=== PATIENT | female | born 1990 | race Caucasian/White ===

== ENCOUNTER 2020-06-20 16:58 | Outpatient (REF) | payer OTHER, SELFPAY ==
--- NOTE | 2020-06-20 15:00 | PAPFT_PTH ---
PATIENT: Renetta Fermin LOC: [facility] U#:[id number] AGE/SX: 29/F ROOM: RE06/20/[address]: LUCILLE Cabrales : 1990 BED: DIS: 06/20/2020 SPEC #: [id number] RECD: 06/20/20 17:54 STATUS: ISSAC REQ #: [id number] ELISABET: 06/20/20 15:[address]: Karyna Hickman DEPT: REPLACED BY [facility] Cytology RECD BY: María Plummer ENTERED: 06/20/20 17:54 SP TYPE: PAPFT OTHR DR: Fran Loya, Tissues: 1 - CX/ENDOCX FOR PAP SMEARS Procedures: PAP THIN PREP/UVM Screening Comments: [id number] ([facility])
== END 2020-06-20 17:18 ==
LOC: LBN 16:58
PROVIDERS: PCP Emergency Medicine; Visit Provider Nurse Practitioner Family
DX: Z87.42 Personal history of other diseases of the female genital tract (principal); Z12.4 Encounter for screening for malignant neoplasm of cervix
CPT/HCPCS: 88142

== ENCOUNTER 2021-02-03 02:36 | Outpatient (CLI) | payer OTHER, SELFPAY ==
[2021-02-03 10:02] LABS: Kit/Specimen SENT
[2021-02-03 10:09] LABS: Abs Immature Grans 0.04 10^3/uL (0.0-0.06); Absolute Basophil Count 0.05 10^3/uL (0.0-0.2); Absolute Lymphocyte Count 1.64 10^3/uL (1.2-3.4); Absolute Monocyte Count 0.37 10^3/uL (0.1-0.8); Absolute Neutrophil Count 5.67 10^3/uL (1.2-6.7); Basophils % 0.6; Eosinophils % 3.7; HCT 35.4 % (36.0-46.0); Immature Grans % 0.5; Lymphocytes % 20.3; MCH 32.9 pg (27.0-33.0); MCHC 33.9 % (32.0-36.0); Monocytes % 4.6; Neutrophils % 70.3; Nucleated RBC 0 %; Platelet Count 216 10^3/uL (130-400); RBC 3.65 10^6/uL (3.93-5.22); RDW 11.8 % (11.7-14.6); RDW-SD 42.5 fL; WBC 8.07 10^3/uL (4.4-10.8)
[2021-02-03 11:10] LABS: FREE T4 0.91 ng/dL (0.76-1.46); TSH 0.39 uIU/mL (0.36-3.74)
[2021-02-04 09:26] LABS: Hepatitis B Surface Ag Negative (Negative)
[2021-02-04 10:03] LABS: HIV-1/2 Ag & Ab Screen Negative (Negative)
[2021-02-04 10:14] LABS: Hepatitis C Ab w Rflx HCV PCR Negative (Negative)
[2021-02-04 13:11] LABS: Varicella IgG Antibody Positive (See Note)
[2021-02-04 13:20] LABS: Rubella IgG Ab (UVM) Positive (See Note)
[2021-02-05 13:38] LABS: Syphilis Total Ab w/Reflex Nonreactive (Nonreactive)
[2021-02-05 18:41] LABS: Specimen WB Whole Blood
[2021-02-07 11:38] LABS: Result Summary NEGATIVE; Specimen WB Whole Blood
== END 2021-02-03 02:37 | disposition home or self-care (01) ==
LOC: LBO 02:36
PROVIDERS: PCP Emergency Medicine; Visit Provider Advanced Practice Midwife
DX: Z34.91 Encounter for supervision of normal pregnancy, unspecified, first trimester (principal); Z11.59 Encounter for screening for other viral diseases; Z11.4 Encounter for screening for human immunodeficiency virus [HIV]; Z01.84 Encounter for antibody response examination; Z36.89 Encounter for other specified antenatal screening
CPT/HCPCS: 36415; 81329; 86787; 86803; 86850; 86900; 86901; 87340; 87389; 81220; 84439; 84443; 85025; 86762; 86780

== ENCOUNTER 2021-02-03 12:02 | Outpatient (REF) | payer OTHER, SELFPAY ==
[2021-02-03 12:10] LABS: *AMPHETAMINES SCREEN URINE Negative (Negative); *BARBITURATES SCREEN URINE Negative (Negative); *BENZODIAZEPINES SCREEN URINE Negative (Negative); Cannabinoids THC Negative (Negative); Cocaine Screen,Urine Negative (Negative); METHADONE URINE SCREEN Negative (Negative); OPIATES URINE SCREEN Negative (Negative)
[2021-02-03 12:11] LABS: Tricyclic Antidepressants Negative (Negative)
[2021-02-04 13:07] LABS: Chlamydia Result Negative (Negative); GC Result Negative (Negative)
[2021-02-07 13:13] LABS: Buprenorphine Negative ng/mL (Cutoff: 5.0); Norbuprenorphine Negative ng/mL (Cutoff: 2.5)
== END 2021-02-03 12:03 | disposition home or self-care (01) ==
LOC: LBN 12:02
PROVIDERS: PCP Emergency Medicine; Visit Provider Advanced Practice Midwife
DX: Z34.91 Encounter for supervision of normal pregnancy, unspecified, first trimester (principal); Z11.3 Encounter for screening for infections with a predominantly sexual mode of transmission
CPT/HCPCS: 80307; 87491; 87591; 87086

== ENCOUNTER 2021-06-05 02:35 | Outpatient (CLI) | payer OTHER, SELFPAY ==
[2021-06-05 16:12] LABS: HCT 33.3 % (36.0-46.0); HGB 11.1 g/dL (11.2-15.7); MCH 32.2 pg (27.0-33.0); MCHC 33.3 % (32.0-36.0); MCV 96.5 fL (80-95); MPV 9.8 fL (8.0-11.0); Platelet Count 218 10^3/uL (130-400); RBC 3.45 10^6/uL (3.93-5.22); RDW 11.6 % (11.7-14.6); RDW-SD 40.8 fL; WBC 11.99 10^3/uL (4.4-10.8)
[2021-06-05 16:34] LABS: Glucose,1 Hr (Glucola) 117 mg/dL (80-140)
== END 2021-06-05 02:36 | disposition home or self-care (01) ==
LOC: LBO 02:35
PROVIDERS: PCP Emergency Medicine; Visit Provider Advanced Practice Midwife
DX: Z34.93 Encounter for supervision of normal pregnancy, unspecified, third trimester (principal)
CPT/HCPCS: 36415; 82950; 85027

== ENCOUNTER 2021-07-14 08:49 | Outpatient (CLI) | payer OTHER, SELFPAY ==
[2021-07-14 10:41] VITALS: BP 122/71; PULSE 71; TEMP 37.1
[2021-07-14 11:03] VITALS: BP 122/71; PULSE 71
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
[2021-07-14 11:59] VITALS: BP 122/71; PULSE 71; TEMP 37.1
== END 2021-07-14 11:26 | disposition home or self-care (01) ==
LOC: BCD 08:51 → OBS 10:39
PROVIDERS: PCP Emergency Medicine; Visit Provider Advanced Practice Midwife
DX: Z03.79 Encounter for other suspected maternal and fetal conditions ruled out (principal); Z04.1 Encounter for examination and observation following transport accident; V40.5XXA Car driver injured in collision with pedestrian or animal in traffic accident, initial encounter; Z3A.34 34 weeks gestation of pregnancy
CPT/HCPCS: 59025

== ENCOUNTER 2021-07-21 13:53 | Outpatient (REF) | payer OTHER, SELFPAY | END 2021-07-21 13:54 | disposition home or self-care (01) | LOC: LBN 13:53 | PROVIDERS: PCP Emergency Medicine; Visit Provider Advanced Practice Midwife | DX: Z34.93 Encounter for supervision of normal pregnancy, unspecified, third trimester (principal) | CPT/HCPCS: 87081 ==

== ENCOUNTER 2021-07-31 17:41 | Outpatient (REF) | payer OTHER, SELFPAY ==
[2021-07-31 17:13] LABS: *AMPHETAMINES SCREEN URINE Negative (Negative); *BARBITURATES SCREEN URINE Negative (Negative); *BENZODIAZEPINES SCREEN URINE Negative (Negative); Cannabinoids THC Negative (Negative); Cocaine Screen,Urine Negative (Negative); METHADONE URINE SCREEN Negative (Negative); OPIATES URINE SCREEN Negative (Negative)
[2021-07-31 17:39] LABS: Tricyclic Antidepressants Negative (Negative)
[2021-08-06 09:58] LABS: Buprenorphine Negative ng/mL (Cutoff: 5.0)
== END 2021-07-31 17:42 | disposition home or self-care (01) ==
LOC: LBN 17:41
PROVIDERS: PCP Emergency Medicine; Visit Provider Advanced Practice Midwife
DX: Z34.93 Encounter for supervision of normal pregnancy, unspecified, third trimester (principal)
CPT/HCPCS: 80307

== ENCOUNTER 2021-08-11 03:18 | Outpatient (CLI) | payer OTHER, SELFPAY | END 2021-08-11 03:19 | disposition home or self-care (01) | LOC: LBO 03:18 | PROVIDERS: PCP Emergency Medicine; Visit Provider Advanced Practice Midwife | DX: Z34.93 Encounter for supervision of normal pregnancy, unspecified, third trimester (principal); Z77.011 Contact with and (suspected) exposure to lead | CPT/HCPCS: 36415; 83655 ==

== ENCOUNTER 2021-08-11 16:05 | Outpatient (CLI) | payer OTHER, SELFPAY ==
[2021-08-11] VITALS (7 sets, daily range): BP systolic 160–168; BP diastolic 95–98; PULSE 58–60; RESP 16; TEMP 36.7
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
[2021-08-11 17:11] LABS: HCT 35.5 % (36.0-46.0); HGB 11.7 g/dL (11.2-15.7); MCH 31.8 pg (27.0-33.0); MCV 96.5 fL (80-95); MPV 11.3 fL (8.0-11.0); Platelet Count 171 10^3/uL (130-400); RBC 3.68 10^6/uL (3.93-5.22); RDW 11.8 % (11.7-14.6); RDW-SD 41.3 fL; WBC 8.42 10^3/uL (4.4-10.8)
--- NOTE | 2021-08-11 17:17 | PDOC.NST_ITS ---
Date of service: 08/11/21 Time of Service: 17:18 NST Evaluation Reason for NST Reasons for Nonstress Test: OTHER, SEE COMMENT Reason for NST Other: fell on butt Gestational Age Gestational Age in Weeks and Days: 38 Weeks and 3Days Test and Monitor Explained Test/Monitor Explained: Test Explained, Monitor Explained and Patient Verbalized Understanding Vital Signs Blood Pressure: 165/98 Pulse: 59 Temperature: 98.0 F Urine Results Urine Protein: Positive Urine Ketones: Negative Urine Glucose: Negative Urine Blood: Positive NST Information Date on Monitor: 08/11/21 Time on Monitor: 16:26 Date off Monitor: 08/11/21 Time off Monitor: 16:57 Total Time on Monitor: 31 NST Interventions: PO Hydration Contraction Frequency: x1 NST Evaluation Patient States Movement: Present FHR Baseline: 120 Variability: Moderate 6-25 bpm Accelerations: 15x15 Decelerations: None NST Results: Reactive Note NST Note Note: NST is reactive and reassuring except for elevated BP for patient. Pre- eclampsia labs were obtained and are pending. Dr. Alexandre is aware of patients status and VS and agrees to pre-eclampsia labs and BP monitoring. NST Reviewed and Verified by: Earnestine Martinez
[2021-08-11 17:24] LABS: CREATININE 0.8 mg/dL (0.55-1.02)
[2021-08-11 17:31] LABS: ALT 28 U/L (14-59); AST 49 U/L (15-37); Albumin 2.5 g/dL (3.4-5.0); Alkaline Phosphatase 165 U/L (46-116); Anion Gap 5.1 mmol/L (3-11); BUN 13 mg/dL (7-18); Bilirubin, Total 0.2 mg/dL (0.2-1.0); CO2 26.9 mmol/L (21.0-32.0); CREATININE 0.8 mg/dL (0.55-1.02); Calcium 8.4 mg/dL (8.5-10.1); Chloride 105 mmol/L (98-107); Glucose 85 mg/dL (74-106); Potassium 4.5 mmol/L (3.5-5.1); Sodium 137 mmol/L (136-145); Total Protein 5.8 g/dL (6.4-8.2); Uric Acid 6.6 mg/dL (2.6-6.0)
[2021-08-11 17:33] LABS: PROTEIN 43.6 mg/dL
--- NOTE | 2021-08-11 17:34 | W.PM.PROGNOT ---
Date of Service Date of service: 08/11/21 Time of Service: 17:34 Assessment and Plan Assessment and plan (1) Elevated blood pressure affecting in third trimester, antepartum: Status: Acute Assessment and plan: will do continuous monitoring and BP hourly, allow patient to rest while awaiting lab results. Consult done with Dr. Alexandre who agrees to this plan. DOV Subjective Subjective Patient reports: no new complaints Interval history since last seen: Patient states she understands that BP elelvation could be a sign of pre-eclampsia and that our concern may be that she could develop eclampsia if it is left untreated. We discussed that we do not have all labs back and that we are in the discovery phase. We will monitor BP hourly and continue with monitoring and determine plan of care based on her VS and lab evaluation. We did discuss that continuing beyond 39 weeks is likely not beneficial and could increase her risks and she verbalizes understanding. Ferny is present and supportive. DOV Exam Narrative Exam Narrative: no physical exam changes. DOV Objective Last Vital Signs Pulse 60 08/11/21 17:18 BP 165/95 H 08/11/21 17:18 Laboratory Results - last 24 hr 08/11/21 16:55 WBC 8.42 RBC 3.68 L Hgb 11.7 Hct 35.5 L MCV 96.5 H MCH 31.8 MCHC 33.0 RDW 11.8 Plt Count 171 MPV 11.3 H Reviewed Pertinent PMH: Yes Objective Narrative Objective Narrative: repeat BP is reviewed by Dr. Alexandre and sports book writer. We discussed continued expectant management while awaiting lab results as this is what patient would prefer. is in agreement with this plan. Dr. Alexandre has informed sports book writer that if BP decreases and labs are within normal limits that patient may be managed with antepartum surveillance and lab work until 39 weeks gestation. DOV
[2021-08-11 17:45] LABS: COMMENT (LAB VIEW ONLY) < 13.00 mg/dL; Prot/Crea Ur Ratio 3.37
[2021-08-11] MEDS: NIFEdipine 10 MG CAP (17:59)
--- NOTE | 2021-08-11 18:02 | PGE_ITS ---
Date of service: 08/11/21 Time of Service: 18:02 Informed Consent Informed Consent: Induction of Labor (discussed cervidil/misoprostol/pitocin risks, benefits and alternatives ) and Risk,Benefits,Alternatives Discussed Contractions Monitor Mode: External Contraction Frequency(min): irritability pattern noted, patient is unaware of discomfort or contraction Fetus A Monitor: External (US) Heart Rate Baseline: 130 Presentation: Cephalic Variability: Moderate (6-25 BPM) Categories: Category I Characteristics: Normal Accelerations: 15 X 15 Decelerations: None Amniotic Membrane Status: Intact Assessment and Plan Assessment and plan (1) Pre-eclampsia in third trimester: Status: Acute Assessment and plan: Admitted to center will do COVID screening plan IOL with cervidil cervical ripening Nifedipine 10 mg PO Consult with Dr. Bettie june MD does not feel Magnesium Sulfate is indicated at this time. Housing Quality Standard Inspector has reviewed pre-eclampsia and eclampsia risks, treatment of delivery and need to manage her BP with patient and her . I have reviewed possible need for additional interventions such as IV medications, magnesium sulfate, and possible transfer of care to MD as needed. KH Objective Abnormal lab results 08/11/21 08/11/21 Range/Units 16:55 16:55 RBC 3.68 L (3.93-5.22) 10^6/uL Hct 35.5 L (36.0-46.0) % MCV 96.5 H (80-95) fL MPV 11.3 H (8.0-11.0) fL Uric Acid 6.6 H (2.6-6.0) mg/dL Calcium 8.4 L (8.5-10.1) mg/dL AST 49 H (15-37) U/L Alkaline Phosphatase 165 H (46-116) U/L Total Protein 5.8 L (6.4-8.2) g/dL Albumin 2.5 L (3.4-5.0) g/dL Pulse BP 58 L 168/96 H 08/11/21 17:53 08/11/21 17:53 Laboratory Results WBC 8.42 10^3/uL (4.4-10.8) 08/11/21 16:55 RBC 3.68 10^6/uL (3.93-5.22) L 08/11/21 16:55 Hgb 11.7 g/dL (11.2-15.7) 08/11/21 16:55 Hct 35.5 % (36.0-46.0) L 08/11/21 16:55 MCV 96.5 fL (80-95) H 08/11/21 16:55 MCH 31.8 pg (27.0-33.0) 08/11/21 16:55 MCHC 33.0 % (32.0-36.0) 08/11/21 16:55 RDW 11.8 % (11.7-14.6) 08/11/21 16:55 Plt Count 171 10^3/uL (130-400) 08/11/21 16:55 MPV 11.3 fL (8.0-11.0) H 08/11/21 16:55 Sodium 137 mmol/L (136-145) 08/11/21 16:55 Potassium 4.5 mmol/L (3.5-5.1) 08/11/21 16:55 Chloride 105 mmol/L (98-107) 08/11/21 16:55 Carbon Dioxide 26.9 mmol/L (21.0-32.0) 08/11/21 16:55 Anion Gap 5.1 mmol/L (3-11) 08/11/21 16:55 BUN 13 mg/dL (7-18) 08/11/21 16:55 Creatinine 0.8 mg/dL (0.55-1.02) 08/11/21 16:55 Creatinine 0.8 mg/dL (0.55-1.02) 08/11/21 16:55 Estimated GFR/1.73 m2 >= 60.00 (mL/min/1.73m2) 08/11/21 16:55 Estimated GFR/1.73 m2 >= 60.00 (mL/min/1.73m2) 08/11/21 16:55 Glucose 85 mg/dL (74-106) 08/11/21 16:55 Uric Acid 6.6 mg/dL (2.6-6.0) H 08/11/21 16:55 Calcium 8.4 mg/dL (8.5-10.1) L 08/11/21 16:55 Total Bilirubin 0.2 mg/dL (0.2-1.0) 08/11/21 16:55 AST 49 U/L (15-37) H 08/11/21 16:55 ALT 28 U/L (14-59) 08/11/21 16:55 Alkaline Phosphatase 165 U/L (46-116) H 08/11/21 16:55 Total Protein 5.8 g/dL (6.4-8.2) L 08/11/21 16:55 Albumin 2.5 g/dL (3.4-5.0) L 08/11/21 16:55 Ur Random Creatinine < 13.00 mg/dL 08/11/21 17:00 U Random Total Protein 43.6 mg/dL 08/11/21 17:00 U Crosby Prot/Creat Ratio 3.37 08/11/21 17:00 Patient ABO/Rh O Positive 08/11/21 16:55 Antibody Screen NEGATIVE 08/11/21 16:55 Vital Signs Reviewed: Yes Subjective Interval history since last seen: Pre-eclampsia diagnosis has been assigned. Dr. Alexandre is aware and agrees to cervical ripning and induction of labor. MD does not feel that magnesium sulfate is needed at this time unless BP is not well controlled by Nifedipine or patient has symptoms of LUGO, vision changes or epigastric pain. Patient and are informed of recommendation to move aditya roach with induction of labor and delivery and that our plan is to give her medication for her BP at this time. They agree to this plan. KH Interventions Induction Indication: PreEclampsia , Type of Induction: Cervical Ripening (cervidil) , Results Hemoglobin/Hematocrit: Hgb 11.7 g/dL (11.2-15.7) 08/11/21 16:55 Hct 35.5 % (36.0-46.0) L 08/11/21 16:55 Abnormal Lab Findings: Abnormal Labs 08/11/21 08/11/21 16:55 16:55 RBC 3.68 L Hct 35.5 L MCV 96.5 H MPV 11.3 H Uric Acid 6.6 H Calcium 8.4 L AST 49 H Alkaline Phosphatase 165 H Total Protein 5.8 L Albumin 2.5 L Additional Findings Results: Labs have been reviewed with Dr. Alexandre. DOV
[2021-08-11] MEDS: Dinoprostone-CERVICAL 10 MG VSUPP VG (19:13)
== END 2021-08-11 18:12 | disposition other institution (70) ==
LOC: BCD 16:06 → OBS 16:16
PROVIDERS: PCP Emergency Medicine; Visit Provider Advanced Practice Midwife
DX: O26.893 Other specified pregnancy related conditions, third trimester (principal); R03.0 Elevated blood-pressure reading, without diagnosis of hypertension; Z3A.38 38 weeks gestation of pregnancy; Z04.3 Encounter for examination and observation following other accident
CPT/HCPCS: 59025; 36415; 80053; 85027; 86850; 86900; 86901; 87635; 82565; 84156; 84550

== ENCOUNTER 2021-08-11 18:17 | Inpatient (IN) | payer OTHER, SELFPAY ==
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
[2021-08-11] MEDS: NIFEdipine 10 MG CAP PO (18:26)
[2021-08-11 18:47] VITALS: BP 162/91; PULSE 62
[2021-08-11 18:53] LABS: Source Nasal/Nares
--- NOTE | 2021-08-11 18:54 | W.PM.OBNL1 ---
Date of service: 08/11/21 Time of Service: 18:54 Pelvic Exam Dilation: 1.5 Effacement (%): 80 station: -2 Cervix Position: posterior Consistency: soft BISHOPS Score(Cervical Ripeness Score): 7 Vaginal Exam Presentation: Vertex Objective Pulse BP 62 162/91 H 08/11/21 18:47 08/11/21 18:47 Laboratory Results COVID-19 Source Nasal/Nares 08/11/21 18:41 Vital Signs Reviewed: Yes Objective Narrative Objective Narrative: There has been minimal BP decrease after 2 doses of PO Nifedipine, will repeat BP in 20 minutes and if not decreased will consult with MD for Labetalol or Hydralazine IV dose. DOV Subjective Patient Reports: No new Complaints Interval history since last seen: Patient is admitted, has IV access and understands rationale for induction. is at bedside and supportive. Segmental Paving Supervisor will be coming to be with patient. DOV
[2021-08-11 19:07] VITALS: BP 146/88; PULSE 67; TEMP 37
--- NOTE | 2021-08-11 19:26 | W.PM.OBNL1 ---
Date of service: 08/11/21 Time of Service: 19:20 Pelvic Exam Dilation: 1.5 Effacement (%): 80 station: -2 Cervix Position: posterior Consistency: soft BISHOPS Score(Cervical Ripeness Score): 7 Vaginal Exam Presentation: Cephalic Contractions Monitor Mode: External Contraction Frequency(min): none Fetus A Monitor: External (US) Heart Rate Baseline: 140 Variability: Moderate (6-25 BPM) Categories: Category I Accelerations: 15 X 15 Decelerations: None Assessment and Plan Assessment and plan (1) Pre-eclampsia in third trimester: Start date: 08/11/21 Start time: 19:20 Status: Acute Assessment and plan: Cervidil placed. Objective Pulse BP 67 146/88 H 08/11/21 19:07 08/11/21 19:07 Laboratory Results COVID-19 Source Nasal/Nares 08/11/21 18:41 Vital Signs Reviewed: Yes Objective Narrative Objective Narrative: will do BP hourly at this time and encourage rest, offered medication to aid with sleep as well. Subjective Interval history since last seen: Tearful at diagnosis and need to move forward but is agreeing to intervention. Compress Engineer is at bedside as well for support. Interventions Induction Indication: PreEclampsia , Type of Induction: Cervical Ripening (cervidil placed. ) ,
[2021-08-11 19:33] LABS: COVID-19 PCR Negative (Negative)
--- NOTE | 2021-08-11 19:33 | NUR.NOTE ---
Nursing Note: SBAR recieved from Amber. Care assumed. Rn to bedside. ALEX Cordova at bedside. Cervadil placed. FOB PAULY and Yelizta Novak at bedside. Pt tearful. States I wasnt expecting this to happen, I wanted a natural Pt reassured. Pt denies headavhe, vision changes, RUQ or epigastric pain.
[2021-08-11 20:12] VITALS: BP 129/81; PULSE 74
[2021-08-11 21:17] VITALS: BP 136/92; PULSE 66
--- NOTE | 2021-08-11 21:59 | W.PM.OBNL1 ---
Date of service: 08/11/21 Time of Service: 21:59 Pelvic Exam Comments: VE deferred Contractions Monitor Mode: External Contraction Frequency(min): irregular Contraction Duration(sec): 40-60 Intensity: Mild Fetus A Monitor: External (US) Heart Rate Baseline: 130 Variability: Moderate (6-25 BPM) Categories: Category I Accelerations: 15 X 15 Decelerations: None Assessment and Plan Assessment and plan (1) Pre-eclampsia in third trimester: Status: Acute Assessment and plan: continue present management, will reassess in 2 hours or prn. DOV Objective Temp Pulse BP 98.6 F 66 136/92 H 08/11/21 19:07 08/11/21 21:17 08/11/21 21:17 Laboratory Results COVID-19 Source Nasal/Nares 08/11/21 18:41 SARS-CoV-2 (PCR) Negative (Negative) 08/11/21 18:41 Patient ABO/Rh Cancelled 08/11/21 18:19 Vital Signs Reviewed: Yes Objective Narrative Objective Narrative: Denies LUGO or visual disturbance, feeling some cramping contractions, requested tylenol for discomfort. DOV Subjective Patient Reports: No new Complaints
[2021-08-11 22:14] VITALS: BP 123/70; PULSE 64
[2021-08-11 23:34] VITALS: BP 133/87; PULSE 64
[2021-08-12] VITALS (16 sets, daily range): BP systolic 128–162; BP diastolic 64–96; PULSE 62–120; RESP 14–18; TEMP 36.6–37.4; O2SAT 96
--- NOTE | 2021-08-12 00:18 | W.PM.OBNL1 ---
Date of service: 08/12/21 Time of Service: 00:19 Contractions Monitor Mode: External Contraction Frequency(min): irritability pattern Contraction Duration(sec): patient reports cramping Fetus A Monitor: External (US) Heart Rate Baseline: 125 Variability: Moderate (6-25 BPM) Categories: Category I Accelerations: 15 X 15 Decelerations: None Amniotic Membrane Status: Intact Assessment and Plan Assessment and plan (1) Pre-eclampsia in third trimester: Status: Acute Assessment and plan: continue present management but nursing to do every 2 hour VS while patient is trying to sleep. Dr. Alexandre has called into to check on patient and is aware of VS. DOV Objective Temp Pulse BP 98.6 F 64 133/87 08/11/21 19:07 08/11/21 23:34 08/11/21 23:34 Laboratory Results COVID-19 Source Nasal/Nares 08/11/21 18:41 SARS-CoV-2 (PCR) Negative (Negative) 08/11/21 18:41 Patient ABO/Rh Cancelled 08/11/21 18:19 Vital Signs Reviewed: Yes Subjective Interval history since last seen: Patient is trying to nap between cramping feeling. Left undisturbed. Will change VS to every 2 hours as her BP has been stable X 4 hours. DOV
--- NOTE | 2021-08-12 02:17 | NUR.NOTE ---
Nursing Note: Pt reporting cramping. Declines medical intervention. Pt reports she is coping well with relaxation and breathing techniques and position changes. Pt denies headache, vision changes, epigastric or LUQ pain. Pt reports intermittent nausea. Supportive FOB at bedside.
--- NOTE | 2021-08-12 04:37 | W.PM.OBNL1 ---
Date of service: 08/12/21 Time of Service: 04:37 Pelvic Exam Comments: VE deferred. DOV Contractions Monitor Mode: External Contraction Frequency(min): irregular Intensity: Mild Fetus A Monitor: External (US) Heart Rate Baseline: 140 Variability: Moderate (6-25 BPM) Categories: Category I Accelerations: 10 X 10 Decelerations: None Assessment and Plan Assessment and plan (1) Pre-eclampsia in third trimester: Status: Acute Assessment and plan: continue present management plan to remove cervidil at 0715 and will likely need to move to pitocin at that time will repeat CBC and CMP at 0730. Plan to review patient and status with MD in am unless otherwise indicated prior to that time. DOV Objective Temp Pulse BP 99.3 F 64 137/69 08/12/21 02:15 08/12/21 04:31 08/12/21 04:31 Laboratory Results COVID-19 Source Nasal/Nares 08/11/21 18:41 SARS-CoV-2 (PCR) Negative (Negative) 08/11/21 18:41 Patient ABO/Rh Cancelled 08/11/21 18:19 Vital Signs Reviewed: Yes Subjective Interval history since last seen: Patient has been sleeping off and on. No ROM or show. Continues to have cramping. Denies LUGO, visual disturbance or epigastric pain. Is out of bed regularly to void and is tolerating PO hydration well. There was one elevated BP in past 6 hours, currently 137/69. DOV
--- NOTE | 2021-08-12 04:37 | NUR.NOTE ---
Nursing Note: BP at 0421 162/90. Pt denies s/sx. MAYDA Malik notified. BP repeat BP at 0432 137/69. Pt continues to deny s/sx. Hat placed in toilet for output measurement.
--- NOTE | 2021-08-12 07:12 | W.OBDELIVERY ---
Date of service: 08/12/21 Time of Service: 07:12 OB Labor/ Delivery Information Baby A Delivery Delivery Method: Spontaneaous Presentation: Cephalic Vertex Position: Left Occipital Anterior Cord Description-Baby A: 3 Vessels and Clamped/Cut Amniotic Fluid: Clear Estimated Blood Loss: 100cc Delivery Outcome: Liveborn Infant Transferred: Remains with Mother Note: After rapid progression from 6-10 cm with CAT I tracind throughout first stage of labor, patient began to have involuntary urge to push at approximately 0520. Excellent maternal pushing effort in hands and knees position per Mother's choice, baby crowned on perineum and head was delivered into FOB's hands with Laminator Preforms's hands on top. Nuchal cord times 1 noted and was loose but unable to reduce over head and baby was delivered through cord. < 1 minute shoulder dystocia noted as posterior arm was delivering but hand was by face. This was quickly resolved by changing Mother's position to side lying and guiding posterior shoulder and arm across chest and out and good maternal pushing effort baby was born. Baby was placed skin to skin originally but cord was double clamped and cut quickly as baby did not take deep breath. With movement to pre-heated warmer and 30 seconds of Cpap O2 baby became active and had spontaneous cry and was handed back to Mother for skin to skin. Aogar 6 at 1 minute and 9 at 5 minutes. Placenta delivered shortly after delivery, via caban mechanism, intact. It was shown to Mother and Father and will be kept in fridge for them to take home with them at discharge per their desire. Nursing is aware of this plan. Funds firms immediately to U-3 with massage, no pitoin was needed, EBL 100cc. small 1st degree perineal laceration was infiltrated with 1% lidocaine and brought together with 1 stitch of 3.0 Vicryl suture. Sponge, needle and instrument count are correct. Excellent family bonding was noted. Jacinta Torre, is present to assist with PP adjustment and nursing. weight 2855 g. BP 136/83 after delivery. Mother and baby are in satisfactory condition. Providers Nurse Laminator Preforms: Earnestine Martinez Irrigation Worker: Sonia Howard Nurse: Ana Roque Nurse: Luann Mojica Labor/Delivery Information Number of Babies in Womb: 1 Steroids Given: None Reason Steroids Not Administered: N/A Group Beta Strep: Negative Antibiotics Administered: No Rubella Status: Immune Blood Type: O+ Varicella Immunity: Immune Born En Route: No Maternal Complications: None Shoulder Dystocia: Yes Note: After head delivered in ROWDY position, posterior shoulder begins to deliver quickly befoer nuchal cord can be reduced and patient had difficulty with pushing on hands and knees for shoulders, she was quickly repositioned to left lateral position and song writer was able to feel posterior shoulder deliver and bring arm across baby's chest and deliver posterior arm completely and then anterior shoulder delivered without any difficulty over 1 minute total. Baby was floppy and did not take a deep breath with just tactile stim but then with movement to warmer and 30 seconds of Cpap baby quickly began to cry and have good tone. 1 minute of 6. She was handed back to her Mother before her 5 minute of 9.KH Stages of Labor Onset of Labor Date: 08/12/21 Onset of Labor Time: 05:00 Complete Dilatation Date: 08/12/21 Complete Dilatation Time: 05:20 Labor - Stage 1 Duration: 0 minutes ROM Baby A: 08/12/21 ROM Baby A: 06:41 ROM Total Time- Baby A: [id number] Delivery Date-Baby A: 08/12/21 Infant Delivery Time-Baby A: 06:41 Labor Stage 2 Duration: 1 hours and 21 minutes Placenta Delivery Date-Baby A: 08/12/21 Placenta Delivery Time-Baby A: 06:48 Labor-Stage 3 Duration: 7 minutes Total Length of Labor-Baby A: 1 hours and 41 minutes Placenta Cultured: No Placenta Status: Delivered Baby A Infant Gender: Female Gestational Status: Early Term (37-38.6 wks) Score-1 Minute Interval(Baby A) Heart Rate-1 minute: 100 BPM or Greater Respiratory Effort- 1 minute: Slow Respiration/Weak Cry Muscle Tone-1 minute: Minimal Flexion/Extension Reflex Response-1 minute: Prompt Response Color-1 minute: Pallor or Cyanosis Total Score-1 minute: 6 Score-5 Minute Interval(Baby A) Heart Rate- 5 minute: 100 BPM or Greater Respiratory Effort-5 minute: Spontaneous/Strong Cry Muscle Tone-5 minute: Active Movement Reflex Response-5 minute: Prompt Response Color-5 minute: Bluish Hands or Feet Total Score- 5 minute: 9
[2021-08-12 09:07] LABS: HCT 34.8 % (36.0-46.0); HGB 11.7 g/dL (11.2-15.7); MCH 31.8 pg (27.0-33.0); MCHC 33.6 % (32.0-36.0); MCV 94.6 fL (80-95); MPV 11.1 fL (8.0-11.0); Platelet Count 107 10^3/uL (130-400); RBC 3.68 10^6/uL (3.93-5.22); RDW 11.9 % (11.7-14.6); RDW-SD 41.1 fL; WBC 17.92 10^3/uL (4.4-10.8)
[2021-08-12 09:12] LABS: ALT 220 U/L (14-59); AST 354 U/L (15-37); Albumin 2.3 g/dL (3.4-5.0); Alkaline Phosphatase 153 U/L (46-116); Anion Gap 10.4 mmol/L (3-11); BUN 17 mg/dL (7-18); Bilirubin, Total 0.8 mg/dL (0.2-1.0); CO2 22.6 mmol/L (21.0-32.0); CREATININE 1.2 mg/dL (0.55-1.02); Calcium 8.4 mg/dL (8.5-10.1); Chloride 102 mmol/L (98-107); Estimated GFR 52.75 (mL/min/1.73m2); Glucose 138 mg/dL (74-106); Potassium 4.3 mmol/L (3.5-5.1); Sodium 135 mmol/L (136-145); Total Protein 5.6 g/dL (6.4-8.2)
[2021-08-12 12:00] LABS: LDH 646 U/L (81-234)
[2021-08-12] MEDS: Dibucaine 1% 28 GM TUBE TP (12:38)
[2021-08-12] MEDS: Hamamelis Leaf/Glycerin 100 EACH BOX PR (12:39)
--- NOTE | 2021-08-12 15:07 | OBPPV_ITS ---
Date of service: 08/12/21 Time of Service: 15:07 Assessment and Plan Assessment and plan (1) care following vaginal delivery: Status: Acute Assessment and plan: continue present plan of management. DOV (2) Elevated liver enzymes: Status: Acute Assessment and plan: mild thrombocytopenia 107 and elevated liver enzymes reviewed with Dr. Alexandre who encouraged repeat labs this evening, orders placed for 1900. Patient has no complaint of LUGO or visual disturbances or epigastric pain.DOV (3) Lactating mother: Status: Acute Assessment and plan: continue present management. DOV Subjective Subjective Patient comments: No complaints and Pain well controlled [place] baby status: Nursing well feeding status: Exclusively breast feeding Exam Physical Exam Vital signs: Temp Pulse BP 98.8 F 71 138/84 08/12/21 12:23 08/12/21 12:23 08/12/21 12:23 Vital Signs Reviewed: Yes Constitutional Constitutional: no acute distress HEENT Exam HEENT Exam: Normal (no complaint of LUGO or visual disturbances) Neck Exam Neck Exam: Not Done Breast Exam Bilateral: Breast Exam: Normal Nipple Exam: Normal Respiratory Exam Respiratory Exam: Normal Cardiovascular Exam Cardiovascular Exam: Normal Fundal Exam Fundus: Below Umbilicus and Firm Rectal Exam Rectal Exam: Not Done Exam Patient deferred: perineal exam Perineum: Normal and Repair Intact Extremities Exam Extremity Exam: Normal Skin Exam Skin Exam: Normal (no petichiae noted) Neurological Exam Neurological Exam: Normal Psychiatric Exam Psychiatric Exam: Normal Results Hemoglobin/Hematocrit: Hgb 11.7 g/dL (11.2-15.7) 08/12/21 08:50 Hct 34.8 % (36.0-46.0) L 08/12/21 08:50 Abnormal Lab Findings: Abnormal Labs 08/12/21 08/12/21 08/12/21 08:50 08:50 08:50 WBC 17.92 H D RBC 3.68 L Hct 34.8 L Plt Count 107 L MPV 11.1 H Sodium 135 L Creatinine 1.2 H Glucose 138 H Calcium 8.4 L AST 354 H ALT 220 H Alkaline Phosphatase 153 H Lactate Dehydrogenase 646 H Total Protein 5.6 L Albumin 2.3 L Additional Findings Results: Reviewed results with Dr. Alexandre who encouraged repeat labs this evening. Orders placed for 1900. DOV
[2021-08-12] MEDS: Ibuprofen 600 MG TAB PO (15:47)
[2021-08-12] MEDS: Normal Saline Flush 10 ML SYR IVP (17:30)
[2021-08-12 19:14] LABS: Abs Immature Grans 0.15 10^3/uL (0.0-0.06); Basophils % 0.3; HCT 36.7 % (36.0-46.0); HGB 12.2 g/dL (11.2-15.7); Immature Grans % 0.8; Lymphocytes % 10.2; MCH 31.8 pg (27.0-33.0); MCHC 33.2 % (32.0-36.0); MCV 95.6 fL (80-95); MPV 10.8 fL (8.0-11.0); Monocytes % 6.5; Neutrophils % 82.2; Nucleated RBC 0 %; Platelet Count 101 10^3/uL (130-400); RBC 3.84 10^6/uL (3.93-5.22); RDW-SD 42.1 fL; WBC 19.19 10^3/uL (4.4-10.8)
[2021-08-12 19:17] LABS: Absolute Basophil Count 0.06 10^3/uL (0.0-0.2); Absolute Lymphocyte Count 1.96 10^3/uL (1.2-3.4); Absolute Monocyte Count 1.25 10^3/uL (0.1-0.8); Absolute Neutrophil Count 15.77 10^3/uL (1.2-6.7)
[2021-08-12 19:29] LABS: ALT 173 U/L (14-59); AST 263 U/L (15-37); Albumin 2.3 g/dL (3.4-5.0); Alkaline Phosphatase 143 U/L (46-116); Anion Gap 7.2 mmol/L (3-11); BUN 18 mg/dL (7-18); Bilirubin, Total 0.5 mg/dL (0.2-1.0); CO2 24.8 mmol/L (21.0-32.0); CREATININE 1.2 mg/dL (0.55-1.02); Calcium 8.5 mg/dL (8.5-10.1); Chloride 103 mmol/L (98-107); Estimated GFR 52.75 (mL/min/1.73m2); Glucose 100 mg/dL (74-106); LDH 550 U/L (81-234); Potassium 4.8 mmol/L (3.5-5.1); Sodium 135 mmol/L (136-145); Total Protein 5.4 g/dL (6.4-8.2); Uric Acid 7.6 mg/dL (2.6-6.0)
[2021-08-12 19:30] LABS: INR 1.1 (0.9-1.1); PTT Activated 25.9 sec (21.0-27.5); Prothrombin Time 10.8 sec (9.3-11.0)
[2021-08-13] VITALS (23 sets, daily range): BP systolic 111–193; BP diastolic 65–108; PULSE 62–84; RESP 18–20; TEMP 36.4–36.9; O2SAT 95–98
[2021-08-13] MEDS: Ibuprofen 600 MG TAB PO ×2 (02:45→09:51)
[2021-08-13] MEDS: Labetalol 100 MG/20 ML VIAL 10 MG IVP ×3 (02:55→04:00)
[2021-08-13] MEDS: Lactated Ringers 1,000 ML 125 ML IV ×3 (03:24→19:13)
[2021-08-13] MEDS: MAGNESIUM SULFATE 20 GM/500 ML BAG IV ×2 (03:25→12:32)
--- NOTE | 2021-08-13 03:42 | W.PM.OBPNV1 ---
Date of service: 08/13/21 Time of Service: 03:42 Assessment and Plan Assessment and plan (1) Pre-eclampsia, : Status: Acute Assessment and plan: will continue to manage BP elevations and reassess. Dr. Sidhu will assume care as of this time. DOV Subjective Subjective Interval history: Spinning Frame Tender called to assess patient who has severe range BP and LUGO. See VS for BP readings. Spinning Frame Tender was at bedside at 0240 and patient had LUGO and some light sensitivity. She had been out of bed to and LUGO began. She was given 10 mg IV labetalol at 0255 and then another 10mg IV at 0325 with some relief of BP elevation. Spinning Frame Tender has ordered a magnesium sulfate bolus and notified Dr. Sidhu who arrived at 0340. Dr. Sidhu will assume medical care of patient after complete report. DOV Patient's Mood: doing well with relaxation and reports at 0335 that LUGO is much better. Exam Physical Exam Vital signs: Temp Pulse Resp BP Pulse Ox 97.8 F 84 20 193/108 H 96 08/12/21 19:55 08/13/21 02:50 08/13/21 02:50 08/13/21 02:50 08/12/21 15:50 Vital Signs Reviewed: Yes Constitutional Constitutional: mild distress Neck Exam Neck Exam: Abnormal (back of head and neck pain which is resolving at this time. DOV) Respiratory Exam Respiratory Exam: Normal Fundal Exam Fundus: Below Umbilicus and Firm Results Hemoglobin/Hematocrit: Hgb 12.2 g/dL (11.2-15.7) 08/12/21 19:00 Hct 36.7 % (36.0-46.0) 08/12/21 19:00 Abnormal Lab Findings: Abnormal Labs 08/12/21 08/12/21 08/12/21 08:50 08:50 08:50 WBC 17.92 H D RBC 3.68 L Hct 34.8 L MCV Plt Count 107 L MPV 11.1 H Absolute Neutrophils Absolute Monocytes Sodium 135 L Creatinine 1.2 H Glucose 138 H Uric Acid Calcium 8.4 L AST 354 H ALT 220 H Alkaline Phosphatase 153 H Lactate Dehydrogenase 646 H Total Protein 5.6 L Albumin 2.3 L 08/12/21 08/12/21 19:00 19:00 WBC 19.19 H RBC 3.84 L Hct MCV 95.6 H Plt Count 101 L MPV Absolute Neutrophils 15.77 H Absolute Monocytes 1.25 H Sodium 135 L Creatinine 1.2 H Glucose Uric Acid 7.6 H Calcium AST 263 H ALT 173 H Alkaline Phosphatase 143 H Lactate Dehydrogenase 550 H Total Protein 5.4 L Albumin 2.3 L
[2021-08-13] MEDS: Normal Saline Flush 10 ML SYR IVP (04:00)
--- NOTE | 2021-08-13 04:33 | NUR.NOTE ---
Nursing Note:0230 am pt rang she had been up to the bathroom had sudden headache and muscle pain in both sides of her neck pain radiated to behinds her eyes. reflexes brisk b/p 185/108 wesley mireles notified b/p repeated 191/97 84 20 . labetalol 10mg iv given over 2 minutes at 0255 am. b/p 0305 166/99 orderes recieved to start magnesium iv and lactated ringers. 0320 185/105 labetalol 10 mg iv repeated. 0325 magnesium iv started. 0330 166/98 84-18 wesley mireles here in the room. 0330 166/98 voided 1200 cc's on a bedpan. 0340 in to see patient and explained what treatments we were doing . 0335 162/93 64 18 97 room air 0400 labetalol 10 mg iv given. [place] catheter placed immediate return of 500 cc's clear urine. 0405 b/p 148/85 62 18 97 room air 0420 143/88 63 18 97 room airwill continue to do vitals and output q 1 hr
--- NOTE | 2021-08-13 04:42 | OBCE_ITS ---
Date of service: 08/13/21 Time of Service: 04:44 Assessment and Plan Assessment and plan (1) Pre-eclampsia, : Status: Acute Assessment and plan: Patient has preeclampsia now 24 hours with severe features. She has mild thrombocytopenia with elevated liver enzymes which have improved over the course of 12 hours. She does have elevated blood pressure which responded to labetalol IV 10 mg x 3 doses. She is currently on magnesium sulfate for seizure prophylaxis. She will have magnesium levels performed every 6 hours. Repeat CBC and CMP are pending for this morning. We will maintain hourly blood pressures for now with accurate I's and O's and clear liquid diet only. Patient was encouraged to be at bedrest. Both she and her understand this. We will continue to monitor closely. She does understand that she will have magnesium sulfate for seizure prophylaxis at minimum 24 hours until blood pressure is stabilized, and brisk diuresis continues. (2) Lactating mother: Status: Acute Assessment and plan: Continue support breast feeding (3) Elevated liver enzymes: Status: Acute Assessment and plan: Monitor closely (4) care following vaginal delivery: Status: Acute (5) Pre-eclampsia in third trimester: Status: Acute (6) Elevated blood pressure affecting in third trimester, antepartum: Status: Acute History of Present Illness History of Present Illness Chief Complaint: Preeclampsia with severe features Narrative: Kindly asked to assume care of this patient who is now 22 hours . She is a 30-year-old 1 now para 1 who had care via her midwifery service. At 38 weeks and 3 days, she was noted to have elevated blood pressures in the office of 138/90. On presentation to the center she had elevated blood pressures of 160/95 warranting IV antihypertensives with labetalol, laboratory studies, and an IV placed. Her initial response to her antihypertensive was good. She had a category 1 tracing with a reactive nonstress test and consultation with Dr. Alexandre has been undertaken. She received oral nifedipine and no magnesium sulfate at that time. She had alec blood pressures, cervical ripening with Cervidil, negative Covid testing reasonably stable blood pressures, no signs of severe features at that point and when none to deliver via normal spontaneous vaginal delivery of viable female infant with Apgars of 6 and 9. In the period, patient had again blood pressures that were stable in the 130/80 range however, laboratory studies that were ordered did show a mild drop in platelet count to 107 and an elevation in liver enzymes. Again these findings have been reviewed with Dr. Alexandre. Close monitoring and repeat laboratory studies for last evening. Platelet count remained stable. Liver enzymes had improved. Blood pressures were stable. Patient awoke this morning early with acute onset of frontal and posterior headache and was noted to have elevated blood pressures in the 160s over 105 r casey. Her sizing sponger was called, orders were placed for IV labetalol followed by magnesium sulfate bolus and I was also notified. Upon my presentation, patient had had 2 doses of IV labetalol, 10 mg received a 4 mg bolus of magnesium and baseline magnesium maintenance at 2 g/h. On physical examination, patient states that she feels less shaky. Her headache which was frontal and posterior is somewhat improved. She denies visual changes, nausea, vomiting, epigastric pain. She is diuresing nicely with a urine output of approximately 1200 cc at last avoid on the bedpan. Over the course of approximately 40 minutes in conversation with both with our sizing sponger, the patient, and her , full explanation was again reiterated regarding preeclampsia, the need for magnesium sulfate for seizure prophylaxis, good control of blood pressure, accurate CHERELLE, serial laboratory studies, therapeutic mag levels were all discussed. Both patient and her verbalized understanding. At this point, we will assume care of this patient who is 24 hours post vaginal delivery after induction for preeclampsia now with severe features on magnesium sulfate. Consults Consult date: 08/13/21 Requesting physician: Earnestine Martinez Review of Systems All systems reviewed & are unremarkable except as noted in HPI and below Constitutional Constitutional: Denies chills, Reports fatigue, Reports headache(s), Denies lethargy, Denies malaise and Denies weakness Eyes Eyes: Reports system reviewed and no additional complaints, except as documented, Denies blind spots, Denies blurry vision, Denies change in vision, Denies diplopia, Denies floaters, Denies loss of vision, Denies other visual disturbances, Denies spots in vision and Denies tunnel vision ENT Ears, Nose, Mouth, and Throat: Reports system reviewed and no additional complai nts, except as documented and Reports headache(s) Cardiovascular Cardiovascular: Reports system reviewed and no additional complaints, except as documented, Denies chest pain, Denies rapid heart rate, Denies irregular heart rhythm, Denies lightheadedness, Denies radiating jaw, neck or arm pain, Denies dyspnea and Denies orthopnea Respiratory Respiratory: Reports system reviewed and no additional complaints, except as documented, Denies chest congestion, Denies cough, Denies pain on inspiration and Denies dyspnea Gastrointestinal Gastrointestinal: Denies abdominal pain, Denies bloating, Denies early satiety, Denies heartburn, Denies nausea and Denies vomiting Genitourinary Genitourinary: Reports as per HPI Musculoskeletal Musculoskeletal: Reports system reviewed and no additional complaints, except as documented Neurologic Neurologic: Reports as per HPI, Denies abnormal movements, Denies abnormal speech, Denies burning sensations, Reports headache(s), Denies localized weakness, Denies loss of vision, Denies other visual disturbances, Denies restle ss legs, Denies convulsions, Denies paresthesias and Denies weakness Psychiatric Psychiatric: Reports system reviewed and no additional complaints, except as documented and Denies anxiety Endocrine Endocrine: Reports system reviewed and no additional complaints, except as documented and Reports fatigue Hematologic/Lymphatic Hematologic/Lymphatic: Denies easy bleeding and Denies easy bruising PFSH All Active Problems Pre-eclampsia, (Acute) Lactating mother (Acute) Elevated liver enzymes (Acute) care following vaginal delivery (Acute) Pre-eclampsia in third trimester (Acute) Elevated blood pressure affecting in third trimester, antepartum (Acute) 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 Sister No problems noted. Brother No problems noted. Brother No problems noted. Maternal Grandfather , 84 Hyperlipidemia Paternal Grandfather , 69 Alcohol abuse Maternal Grandmother , 83 High cholesterol Macular degeneration Paternal Grandmother , 84 High cholesterol Social History Smoking/Tobacco Use Status: Former Tobacco Use tobacco type: cigarettes Quit Date: 08/23/06 Smokeless tobacco user: chewing tobacco Smoking risk assessment performed?: Yes Alcohol Intake: never Drug use: Never Substance use type: does not use Caregiver/Support person: Yes Household members: spouse Housing: house Communication Needs: None and Corrective Lenses Do you need help understanding health information?: Never Pets and animals: Yes Pets and animals: dog(s) Sexually active: Yes Do you think of yourself as: straight/heterosexual Current gender identity: female What is your relationship status?: How often do you talk on the phone with friends or family?: three or more times per week How often do you get together with friends or relatives?: three or more times per week How often do you attend orthodox or faith services?: 1-3 times per year Do you belong to any clubs or organized social groups?: yes Panel score (0-1 are the most socially isolated patients): 3 What type of physical activity do you participate in: walking, bicycling, running and yoga Duration: 30-45 minutes/day Frequency: daily Ashli/Muslim: Restoration Special ashli needs: No Seatbelt use: always Helmet use: Yes Helmet use: always Drive intox or ride w/intox operator and truck driver: No History History 1 Para 0 Hx # Term Pregnancies 0 Multiple births 0 Hx # Pregnancies 0 Ectopic pregnancies 0 AB induced 0 Hx Number of Living Children 0 AB spontaneous 0 Exam Narrative Exam Narrative: Patient seen and examined at the bedside with side rails up, seizure precautions, magnesium sulfate infiltrating, patient at rest. Const General: cooperative, healthy appearing, comfortable, no acute distress and not anxious Nutritional Appearance: average body habitus and well nourished Orientation: alert and oriented x3 HENMT Head: normal to inspection Eyes General: appearance normal, both eyes and all related structures Pupils: PERRL Neck Neck: normal visual inspection Chest Chest: normal inspection of the chest Breast inspection: normal inspection of the breasts Resp Effort & Inspection: normal respiratory effort and able to speak in complete sentences Auscultation: clear to auscultation bilaterally, no rales, no rhonchi and no wheezes Cardio Palpation: normal PMI Rate: regular rate Rhythm: regular rhythm Heart Sounds: S1 normal, S2 normal and no murmurs GI Inspection: normal to inspection Palpation: soft Skin General skin exam: no rashes or lesions noted Neuro General: patient alert, patient awake and patient oriented x3 Cranial Nerves: CN's II-XI intact bilaterally and PERRL Cognition: normal cognition Speech: speech normal Gait: normal gait DTR's: Rt Patellar: 2+, Lt Patellar: 2+, Rt Ankle: 2+ and Lt Ankle: 2+ Extrem General: normal to inspection and no clubbing, cyanosis or edema Results Last Vital Signs Temp 97.8 F 08/12/21 19:55 Pulse 84 08/13/21 04:00 Resp 20 08/13/21 02:50 BP 152/85 H 08/13/21 04:00 Pulse Ox 96 08/12/21 15:50 Labs Result diagrams: 08/12/21 19:00 08/12/21 19:00 Labs: Laboratory Results - last 24 hr 08/12/21 08/12/21 08/12/21 08:50 08:50 08:50 WBC 17.92 H D RBC 3.68 L Hgb 11.7 Hct 34.8 L MCV 94.6 MCH 31.8 MCHC 33.6 RDW 11.9 Plt Count 107 L MPV 11.1 H Immature Gran % Neutrophils % Lymphocytes % Monocytes % Eosinophils % Basophils % Nucleated RBC % Absolute Neutrophils Absolute Lymphocytes Absolute Monocytes Absolute Eosinophils Absolute Basophils PT INR APTT Sodium 135 L Potassium 4.3 Chloride 102 Carbon Dioxide 22.6 Anion Gap 10.4 BUN 17 Creatinine 1.2 H Estimated GFR/1.73 m2 52.75 Glucose 138 H Uric Acid Calcium 8.4 L Total Bilirubin 0.8 AST 354 H ALT 220 H Alkaline Phosphatase 153 H Lactate Dehydrogenase 646 H Total Protein 5.6 L Albumin 2.3 L 08/12/21 08/12/21 08/12/21 19:00 19:00 19:00 WBC 19.19 H RBC 3.84 L Hgb 12.2 Hct 36.7 MCV 95.6 H MCH 31.8 MCHC 33.2 RDW 12.0 Plt Count 101 L MPV 10.8 Immature Gran % 0.8 Neutrophils % 82.2 Lymphocytes % 10.2 Monocytes % 6.5 Eosinophils % 0.0 Basophils % 0.3 Nucleated RBC % 0 Absolute Neutrophils 15.77 H Absolute Lymphocytes 1.96 Absolute Monocytes 1.25 H Absolute Eosinophils 0.00 Absolute Basophils 0.06 PT 10.8 INR 1.1 APTT 25.9 Sodium 135 L Potassium 4.8 Chloride 103 Carbon Dioxide 24.8 Anion Gap 7.2 BUN 18 Creatinine 1.2 H Estimated GFR/1.73 m2 52.75 Glucose 100 Uric Acid 7.6 H Calcium 8.5 Total Bilirubin 0.5 AST 263 H ALT 173 H Alkaline Phosphatase 143 H Lactate Dehydrogenase 550 H Total Protein 5.4 L Albumin 2.3 L
[2021-08-13 04:47] LABS: HCT 32.5 % (36.0-46.0); HGB 10.8 g/dL (11.2-15.7); MCH 31.5 pg (27.0-33.0); MCHC 33.2 % (32.0-36.0); MCV 94.8 fL (80-95); Platelet Count 91 10^3/uL (130-400); RBC 3.43 10^6/uL (3.93-5.22); RDW-SD 41.5 fL; WBC 15.15 10^3/uL (4.4-10.8)
[2021-08-13 05:07] LABS: ALT 138 U/L (14-59); AST 178 U/L (15-37); Albumin 2.1 g/dL (3.4-5.0); Alkaline Phosphatase 123 U/L (46-116); Anion Gap 4.6 mmol/L (3-11); BUN 14 mg/dL (7-18); Bilirubin, Total 0.4 mg/dL (0.2-1.0); CO2 26.4 mmol/L (21.0-32.0); CREATININE 0.8 mg/dL (0.55-1.02); Chloride 107 mmol/L (98-107); Glucose 100 mg/dL (74-106); LDH 465 U/L (81-234); Potassium 3.8 mmol/L (3.5-5.1); Sodium 138 mmol/L (136-145); Total Protein 5.1 g/dL (6.4-8.2); Uric Acid 6.9 mg/dL (2.6-6.0)
[2021-08-13 05:11] LABS: Magnesium 4.6 mg/dL (1.8-2.4)
--- NOTE | 2021-08-13 07:06 | OBPPV_ITS ---
Date of service: 08/13/21 Time of Service: 07:07 Assessment and Plan Assessment and plan (1) Pre-eclampsia, : Status: Acute Assessment and plan: preeclampsia with severe features cu rrently on magnesium sulfate for seizure prophylaxis. Every 6 hours mag levels. Serial laboratory studies. Bedrest. Careful monitoring. Magnesium times a minimum of 24 hours. Will monitor blood pressures. Antihypertensive medications as needed (2) Lactating mother: Status: Acute (3) Elevated liver enzymes: Status: Acute (4) care following vaginal delivery: Status: Acute Subjective Subjective Interval history: Patient seen and examined this morning. Feeling better. No headache. No chest pain or shortness of breath. No visual changes. No abdom inal pain. Doing well on her magnesium sulfate. [place] baby status: Doing well, Nursing well and Strong Bonding Observed [place] feeding status: Exclusively breast feeding Exam Physical Exam Vital signs: Temp Pulse Resp BP Pulse Ox 97.8 F 66 18 132/82 97 08/12/21 19:55 08/13/21 06:54 08/13/21 06:54 08/13/21 06:54 08/13/21 06:54 Constitutional Constitutional: no acute distress HEENT Exam HEENT Exam: Normal Detailed HEENT Exam Head: Present normocephalic Respiratory Exam Respiratory Exam: Normal Cardiovascular Exam Cardiovascular Exam: Normal Detail Cardiovascular Exam Cardiovascular: Present RRR Abdominal Exam Comments: soft, non-tender Fundal Exam Fundus: Below Umbilicus and Firm Extremities Exam Extremity Exam: negative Calf Tenderness and Edema Skin Exam Skin Exam: Normal Neurological Exam Neurological Exam: Normal Detailed Neurological Exam Neurological: Present alert, oriented X3, CN II-XII intact and normal tone Psychiatric Exam Psychiatric Exam: Normal Results Hemoglobin/Hematocrit: Hgb 10.8 g/dL (11.2-15.7) L 08/13/21 04:39 Hct 32.5 % (36.0-46.0) L 08/13/21 04:39 Abnormal Lab Findings: Abnormal Labs 08/12/21 08/12/21 08/12/21 08:50 08:50 08:50 WBC 17.92 H D RBC 3.68 L Hgb Hct 34.8 L MCV Plt Count 107 L MPV 11.1 H Absolute Neutrophils Absolute Monocytes Sodium 135 L Creatinine 1.2 H Glucose 138 H Uric Acid Calcium 8.4 L Magnesium AST 354 H ALT 220 H Alkaline Phosphatase 153 H Lactate Dehydrogenase 646 H Total Protein 5.6 L Albumin 2.3 L 08/12/21 08/12/21 08/13/21 19:00 19:00 04:39 WBC 19.19 H RBC 3.84 L Hgb Hct MCV 95.6 H Plt Count 101 L MPV Absolute Neutrophils 15.77 H Absolute Monocytes 1.25 H Sodium 135 L Creatinine 1.2 H Glucose Uric Acid 7.6 H 6.9 H Calcium 8.0 L Magnesium AST 263 H 178 H ALT 173 H 138 H Alkaline Phosphatase 143 H 123 H Lactate Dehydrogenase 550 H 465 H Total Protein 5.4 L 5.1 L Albumin 2.3 L 2.1 L 08/13/21 08/13/21 04:39 04:39 WBC 15.15 H RBC 3.43 L Hgb 10.8 L Hct 32.5 L MCV Plt Count 91 L MPV Absolute Neutrophils Absolute Monocytes Sodium Creatinine Glucose Uric Acid Calcium Magnesium 4.6 H* AST ALT Alkaline Phosphatase Lactate Dehydrogenase Total Protein Albumin
[2021-08-13] MEDS: Acetaminophen 325 MG TAB 650 MG PO (09:52)
--- NOTE | 2021-08-13 09:55 | W.PM.OBPNV1 ---
Date of service: 08/13/21 Time of Service: 09:55 Assessment and Plan Assessment and plan (1) Pre-eclampsia, : Status: Acute Assessment and plan: Pt is PPD#1 s/p NVD s/p induction for mild PEC with development of sever features 22hrs pp. She is now on Mag and BPs have stablized s/p IV Labetalol. They had been 130s/80s but the most recent one increased to 150s so we will start her on PO Labetalol 200mg BID. She continues to diurese well. Subjective Subjective Interval history: Pt feels ok. Slight headache (3/10). Feels groggy. No n/v. Breast-feeding is going well. She would love to eat something [place] baby status: Doing well and Nursing well feeding status: Exclusively breast feeding Exam Physical Exam Vital signs: Temp Pulse Resp BP Pulse Ox 97.8 F 66 18 132/82 97 08/12/21 19:55 08/13/21 06:54 08/13/21 06:54 08/13/21 06:54 08/13/21 06:54 Constitutional Constitutional: no acute distress and cooperative Detailed HEENT Exam Head: Present normocephalic and atraumatic Respiratory Exam Respiratory Exam: Normal Abdominal Exam Abdomen: Tender (mildly) Fundal Exam Fundus: Below Umbilicus and Firm Extremities Exam Extremity Exam: negative Calf Tenderness and Edema Comment: DTRs, 1+ on R, 2+ on L Detailed Neurological Exam Neurological: Present alert, oriented X3 and CN II-XII intact Results Hemoglobin/Hematocrit: Hgb 10.8 g/dL (11.2-15.7) L 08/13/21 04:39 Hct 32.5 % (36.0-46.0) L 08/13/21 04:39 Abnormal Lab Findings: Abnormal Labs 08/12/21 08/12/21 08/12/21 08:50 08:50 08:50 WBC 17.92 H D RBC 3.68 L Hgb Hct 34.8 L MCV Plt Count 107 L MPV 11.1 H Absolute Neutrophils Absolute Monocytes Sodium 135 L Creatinine 1.2 H Glucose 138 H Uric Acid Calcium 8.4 L Magnesium AST 354 H ALT 220 H Alkaline Phosphatase 153 H Lactate Dehydrogenase 646 H Total Protein 5.6 L Albumin 2.3 L 1208/12/21 08/13/21 19:00 19:00 04:39 WBC 19.19 H RBC 3.84 L Hgb Hct MCV 95.6 H Plt Count 101 L MPV Absolute Neutrophils 15.77 H Absolute Monocytes 1.25 H Sodium 135 L Creatinine 1.2 H Glucose Uric Acid 7.6 H 6.9 H Calcium 8.0 L Magnesium AST 263 H 178 H ALT 173 H 138 H Alkaline Phosphatase 143 H 123 H Lactate Dehydrogenase 550 H 465 H Total Protein 5.4 L 5.1 L Albumin 2.3 L 2.1 L 08/13/21 08/13/21 04:39 04:39 WBC 15.15 H RBC 3.43 L Hgb 10.8 L Hct 32.5 L MCV Plt Count 91 L MPV Absolute Neutrophils Absolute Monocytes Sodium Creatinine Glucose Uric Acid Calcium Magnesium 4.6 H* AST ALT Alkaline Phosphatase Lactate Dehydrogenase Total Protein Albumin
[2021-08-13] MEDS: Labetalol 100 MG TAB 200 MG PO ×2 (09:58→19:54)
[2021-08-13 10:24] LABS: Magnesium 6.1 mg/dL (1.8-2.4)
--- NOTE | 2021-08-13 11:31 | OBVDS_ITS ---
OB Labor/ Delivery Information Providers Nurse Rivet Catcher: Earnestine Martinez Executive Compensation Analyst: Sonia Howard Nurse: Ana Roque Nurse: Luann Mojica Labor/Delivery Information Number of Babies in Womb: 1 Steroids Given: None Reason Steroids Not Administered: N/A Group Beta Strep: Negative Antibiotics Administered: No Rubella Status: Immune Blood Type: O+ Varicella Immunity: Immune Maternal Complications: None Shoulder Dystocia: Yes Stages of Labor Onset of Labor Date: 08/12/21 Onset of Labor Time: 05:00 Complete Dilatation Date: 08/12/21 Complete Dilatation Time: 05:20 Labor - Stage 1 Duration: 0 minutes ROM Baby A: 08/12/21 ROM Baby A: 06:41 ROM Total Time- Baby A: [id number] Infant Delivery Date-Baby A: 08/12/21 Delivery Time-Baby A: 06:41 Labor Stage 2 Duration: 1 hours and 21 minutes Placenta Delivery Date-Baby A: 08/12/21 Placenta Delivery Time-Baby A: 06:48 Labor-Stage 3 Duration: 7 minutes Total Length of Labor-Baby A: 1 hours and 41 minutes Placenta Cultured: No Placenta Status: Delivered Baby A Infant Gender: Female Gestational Status: Early Term (37-38.6 wks) Gestational Age in Weeks/Days: 38 Weeks and 4 Days weight: 6 lb 4.707 oz Length-Baby A: 20 in Head Circumference-Baby A: 13 in Score-1 Minute Interval(Baby A) Heart Rate-1 minute: 100 BPM or Greater Respiratory Effort- 1 minute: Slow Respiration/Weak Cry Muscle Tone-1 minute: Minimal Flexion/Extension Reflex Response-1 minute: Prompt Response Color-1 minute: Pallor or Cyanosis Total Score-1 minute: 6 Score-5 Minute Interval(Baby A) Heart Rate- 5 minute: 100 BPM or Greater Respiratory Effort-5 minute: Spontaneous/Strong Cry Muscle Tone-5 minute: Active Movement Reflex Response-5 minute: Prompt Response Color-5 minute: Bluish Hands or Feet Total Score- 5 minute: 9
[2021-08-13 16:39] LABS: Abs Immature Grans 0.05 10^3/uL (0.0-0.06); Absolute Basophil Count 0.05 10^3/uL (0.0-0.2); Absolute Eosinophil Count 0.12 10^3/uL (0.0-0.7); Absolute Monocyte Count 0.73 10^3/uL (0.1-0.8); Basophils % 0.4; Eosinophils % 0.9; HCT 30.8 % (36.0-46.0); HGB 10.2 g/dL (11.2-15.7); Immature Grans % 0.4; Lymphocytes % 15.8; MCH 31.8 pg (27.0-33.0); MCHC 33.1 % (32.0-36.0); MPV 11.2 fL (8.0-11.0); Monocytes % 5.5; Nucleated RBC 0 %; Platelet Count 95 10^3/uL (130-400); RBC 3.21 10^6/uL (3.93-5.22); RDW 12.2 % (11.7-14.6); RDW-SD 42.6 fL; WBC 13.29 10^3/uL (4.4-10.8)
[2021-08-13 16:40] LABS: Absolute Neutrophil Count 10.23 10^3/uL (1.2-6.7)
[2021-08-13 22:02] LABS: Magnesium 4.6 mg/dL (1.8-2.4)
[2021-08-14] VITALS (12 sets, daily range): BP systolic 128–156; BP diastolic 76–91; PULSE 66–69; RESP 14–18; TEMP 36.6–37; O2SAT 97–98
[2021-08-14] MEDS: Acetaminophen 325 MG TAB 650 MG PO ×2 (00:15→17:07)
[2021-08-14] MEDS: Ibuprofen 600 MG TAB PO ×3 (00:15→17:08)
[2021-08-14 04:01] LABS: Abs Immature Grans 0.06 10^3/uL (0.0-0.06); Absolute Basophil Count 0.05 10^3/uL (0.0-0.2); Absolute Eosinophil Count 0.21 10^3/uL (0.0-0.7); Absolute Lymphocyte Count 2.01 10^3/uL (1.2-3.4); Absolute Monocyte Count 0.69 10^3/uL (0.1-0.8); Basophils % 0.5; Eosinophils % 1.9; HCT 29.9 % (36.0-46.0); HGB 9.9 g/dL (11.2-15.7); Immature Grans % 0.5; Lymphocytes % 18.4; MCH 31.8 pg (27.0-33.0); MCHC 33.1 % (32.0-36.0); MCV 96.1 fL (80-95); Monocytes % 6.3; Neutrophils % 72.4; Nucleated RBC 0 %; Platelet Count 102 10^3/uL (130-400); RBC 3.11 10^6/uL (3.93-5.22); RDW 12.3 % (11.7-14.6); RDW-SD 43.1 fL; WBC 10.92 10^3/uL (4.4-10.8)
[2021-08-14 04:04] LABS: Absolute Neutrophil Count 7.91 10^3/uL (1.2-6.7)
[2021-08-14 04:14] LABS: ALT 99 U/L (14-59); AST 87 U/L (15-37); Alkaline Phosphatase 106 U/L (46-116); Anion Gap 6.4 mmol/L (3-11); BUN 11 mg/dL (7-18); Bilirubin, Total 0.2 mg/dL (0.2-1.0); CO2 28.6 mmol/L (21.0-32.0); CREATININE 0.8 mg/dL (0.55-1.02); Chloride 104 mmol/L (98-107); Glucose 79 mg/dL (74-106); Potassium 4.2 mmol/L (3.5-5.1); Sodium 139 mmol/L (136-145)
[2021-08-14 04:16] LABS: Magnesium 4.8 mg/dL (1.8-2.4)
[2021-08-14] MEDS: Labetalol 100 MG TAB 200 MG PO ×2 (08:54→19:39)
--- NOTE | 2021-08-14 09:32 | OBPPV_ITS ---
Date of service: 08/14/21 Time of Service: 09:32 Assessment and Plan Assessment and plan (1) HELLP syndrome, delivered, current hospitalization: Status: Acute Assessment and plan: LFTs improving but not normalized. Platelet count remained stable. She has had significant diuresis with magnesium sulfate. The plan at this time is to discontinue her IV infusion of magnesium sulfate discontinue the Martin catheter and continue I&O with each spontaneous void. She will have repeat labs performed in the morning. Plan is to continue labetalol 200 mg twice daily and continue to follow blood pressure closely (2) Lactating mother: Status: Acute Assessment and plan: Nipples excoriated. Patient is using topical ointment for relief of discomfort. (3) care following vaginal delivery: Status: Acute Assessment and plan: Left labia majora is edematous but not ecchymotic. We will continue to follow. I recommended ice to the perineum today. I also recommended the patient out of bed and ambulatory. Subjective Subjective Interval history: I have assumed care of the patient. Overnight she is continued to have vigorous diuresis approximately 450 cc of clear cecilia urine per hour emptied from the Martin catheter. Magnesium sulfate infusion continued overnight. Blood pressure in the 140/80 range. Mild headache this morning no vision changes. Patient comments: Tolerating diet [place] baby status: Doing well, Nursing well, Strong Bonding Observed and Other ( weight down approximately 7.5% since ) feeding status: Exclusively breast feeding Exam Physical Exam Vital signs: Temp Pulse Resp BP Pulse Ox 97.8 F 69 18 144/84 H 97 08/14/21 00:00 08/14/21 06:15 08/14/21 06:15 08/14/21 06:15 08/13/21 21:53 Constitutional Constitutional: no acute distress Neck Exam Neck Exam: Not Done Respiratory Exam Respiratory Exam: Normal Cardiovascular Exam Cardiovascular Exam: Normal Abdominal Exam Comments: Abdomen nontender Fundal Exam Fundus: Below Umbilicus Rectal Exam Rectal Exam: Not Done Exam Perineum: Edematous (Left labia majora edematous. No ecchymosis.) External: Present normal urethra appearance Genitals image: 1. edematous. No erythema, no echymosis. Extremities Exam Extremity Exam: Normal, Pulses Intact and Warm to Touch Back/Spine/Pelvis Exam Back Exam: Normal Skin Exam Skin Exam: Normal Neurological Exam Neurological Exam: Normal (DTRs +1 no clonus) Results Hemoglobin/Hematocrit: Hgb 9.9 g/dL (11.2-15.7) L 08/14/21 03:54 Hct 29.9 % (36.0-46.0) L 08/14/21 03:54 Abnormal Lab Findings: Abnormal Labs 08/12/21 08/12/21 08/12/21 08:50 08:50 08:50 WBC 17.92 H D RBC 3.68 L Hgb Hct 34.8 L MCV Plt Count 107 L MPV 11.1 H Absolute Neutrophils Absolute Monocytes Sodium 135 L Creatinine 1.2 H Glucose 138 H Uric Acid Calcium 8.4 L Magnesium AST 354 H ALT 220 H Alkaline Phosphatase 153 H Lactate Dehydrogenase 646 H Total Protein 5.6 L Albumin 2.3 L 08/12/21 08/12/21 08/13/21 19:00 19:00 04:39 WBC 19.19 H RBC 3.84 L Hgb Hct MCV 95.6 H Plt Count 101 L MPV Absolute Neutrophils 15.77 H Absolute Monocytes 1.25 H Sodium 135 L Creatinine 1.2 H Glucose Uric Acid 7.6 H 6.9 H Calcium 8.0 L Magnesium AST 263 H 178 H ALT 173 H 138 H Alkaline Phosphatase 143 H 123 H Lactate Dehydrogenase 550 H 465 H Total Protein 5.4 L 5.1 L Albumin 2.3 L 2.1 L 08/13/21 08/13/21 08/13/21 04:39 04:39 10:04 WBC 15.15 H RBC 3.43 L Hgb 10.8 L Hct 32.5 L MCV Plt Count 91 L MPV Absolute Neutrophils Absolute Monocytes Sodium Creatinine Glucose Uric Acid Calcium Magnesium 4.6 H* 6.1 H* AST ALT Alkaline Phosphatase Lactate Dehydrogenase Total Protein Albumin 08/13/21 08/13/21 08/13/21 16:20 16:20 21:43 WBC 13.29 H RBC 3.21 L Hgb 10.2 L Hct 30.8 L MCV 96.0 H Plt Count 95 L MPV 11.2 H Absolute Neutrophils 10.23 H Absolute Monocytes Sodium Creatinine Glucose Uric Acid Calcium Magnesium 5.0 H* 4.6 H* AST ALT Alkaline Phosphatase Lactate Dehydrogenase Total Protein Albumin 08/14/21 08/14/21 08/14/21 03:54 03:54 03:54 WBC 10.92 H RBC 3.11 L Hgb 9.9 L Hct 29.9 L MCV 96.1 H Plt Count 102 L MPV Absolute Neutrophils 7.91 H Absolute Monocytes Sodium Creatinine Glucose Uric Acid Calcium 7.0 L Magnesium 4.8 H* AST 87 H ALT 99 H Alkaline Phosphatase Lactate Dehydrogenase Total Protein 5.0 L Albumin 2.0 L
[2021-08-14] MEDS: Docusate Sodium 100 MG CAP PO (11:43)
[2021-08-14] MEDS: Normal Saline Flush 10 ML SYR IVP (16:54)
[2021-08-15 00:58] VITALS: BP 140/76; PULSE 65; RESP 18; TEMP 36.8; O2SAT 98
[2021-08-15] MEDS: Ibuprofen 600 MG TAB PO (03:09)
[2021-08-15] MEDS: Acetaminophen 325 MG TAB 650 MG PO (03:09)
[2021-08-15 04:43] VITALS: BP 136/78
[2021-08-15 07:14] LABS: HCT 33.1 % (36.0-46.0); HGB 10.5 g/dL (11.2-15.7); MCH 31.3 pg (27.0-33.0); MCHC 31.7 % (32.0-36.0); MCV 98.5 fL (80-95); MPV 10.4 fL (8.0-11.0); Platelet Count 125 10^3/uL (130-400); RBC 3.36 10^6/uL (3.93-5.22); RDW 12.2 % (11.7-14.6); RDW-SD 44.1 fL; WBC 9.55 10^3/uL (4.4-10.8)
[2021-08-15 07:32] LABS: ALT 101 U/L (14-59); AST 81 U/L (15-37); Albumin 2.3 g/dL (3.4-5.0); Alkaline Phosphatase 110 U/L (46-116); Anion Gap 5.7 mmol/L (3-11); BUN 11 mg/dL (7-18); Bilirubin, Total 0.3 mg/dL (0.2-1.0); CO2 27.3 mmol/L (21.0-32.0); CREATININE 0.7 mg/dL (0.55-1.02); Calcium 8.2 mg/dL (8.5-10.1); Chloride 107 mmol/L (98-107); Glucose 74 mg/dL (74-106); Potassium 4.3 mmol/L (3.5-5.1); Sodium 140 mmol/L (136-145); Total Protein 5.7 g/dL (6.4-8.2)
[2021-08-15 08:30] VITALS: BP 150/90; PULSE 70; RESP 18; TEMP 36.7
[2021-08-15] MEDS: Labetalol 100 MG TAB 200 MG PO (08:33)
--- NOTE | 2021-08-15 09:29 | OBPPV_ITS ---
Date of service: 08/15/21 Time of Service: 09:29 Assessment and Plan Assessment and plan (1) HELLP syndrome, delivered, current hospitalization: Status: Acute Assessment and plan: Patient seen, chart reviewed. Doing well. Labs are normalizing. Breast feeding well. All questions answered. BP mac 150/90 just prior to dose of Labetalol. Will increase to 300 mg BID with close outpatient follow up (2) Pre-eclampsia, : Status: Acute Assessment and plan: stable (3) Lactating mother: Status: Acute Assessment and plan: Feeding well Subjective Subjective Interval history: Doing much better. No complaints Patient comments: No complaints, Pain well controlled and Tolerating diet baby status: Doing well, Nursing well, Rooming in and Strong Bonding Observed [place] feeding status: Exclusively breast feeding Exam Physical Exam Vital signs: Temp Pulse Resp BP Pulse Ox 98.1 F 70 18 150/90 H 98 08/15/21 08:30 08/15/21 08:30 08/15/21 08:30 08/15/21 08:30 08/15/21 00:58 Constitutional Constitutional: no acute distress Detailed HEENT Exam Head: Present normocephalic and atraumatic Eye: Present EOMI Detailed Neck Exam Neck exam general surgery: Present supple and full ROM Respiratory Exam Respiratory Exam: Normal Cardiovascular Exam Cardiovascular Exam: Normal Abdominal Exam Abdomen: Other Comments: Normal Fundal Exam Fundus: Below Umbilicus and Firm Extremities Exam Extremity Exam: Normal; negative Calf Tenderness and Edema Skin Exam Skin Exam: Normal Neurological Exam Neurological Exam: Normal DetailedPsychiatric Exam Psych Exam: Normal Affect, Normal Thougth Process, Cooperative, Good Insight and Good Judgement Results Hemoglobin/Hematocrit: Hgb 10.5 g/dL (11.2-15.7) L 08/15/21 07:05 Hct 33.1 % (36.0-46.0) L 08/15/21 07:05 Abnormal Lab Findings: Abnormal Labs 08/12/21 08/12/21 08/12/21 08:50 08:50 08:50 WBC 17.92 H D RBC 3.68 L Hgb Hct 34.8 L MCV MCHC Plt Count 107 L MPV 11.1 H Absolute Neutrophils Absolute Monocytes Sodium 135 L Creatinine 1.2 H Glucose 138 H Uric Acid Calcium 8.4 L Magnesium AST 354 H ALT 220 H Alkaline Phosphatase 153 H Lactate Dehydrogenase 646 H Total Protein 5.6 L Albumin 2.3 L 08/12/21 08/12/21 08/13/21 19:00 19:00 04:39 WBC 19.19 H RBC 3.84 L Hgb Hct MCV 95.6 H MCHC Plt Count 101 L MPV Absolute Neutrophils 15.77 H Absolute Monocytes 1.25 H Sodium 135 L Creatinine 1.2 H Glucose Uric Acid 7.6 H 6.9 H Calcium 8.0 L Magnesium AST 263 H 178 H ALT 173 H 138 H Alkaline Phosphatase 143 H 123 H Lactate Dehydrogenase 550 H 465 H Total Protein 5.4 L 5.1 L Albumin 2.3 L 2.1 L 08/13/21 08/13/21 08/13/21 04:39 04:39 10:04 WBC 15.15 H RBC 3.43 L Hgb 10.8 L Hct 32.5 L MCV MCHC Plt Count 91 L MPV Absolute Neutrophils Absolute Monocytes Sodium Creatinine Glucose Uric Acid Calcium Magnesium 4.6 H* 6.1 H* AST ALT Alkaline Phosphatase Lactate Dehydrogenase Total Protein Albumin 08/13/21 08/13/21 08/13/21 16:20 16:20 21:43 WBC 13.29 H RBC 3.21 L Hgb 10.2 L Hct 30.8 L MCV 96.0 H MCHC Plt Count 95 L MPV 11.2 H Absolute Neutrophils 10.23 H Absolute Monocytes Sodium Creatinine Glucose Uric Acid Calcium Magnesium 5.0 H* 4.6 H* AST ALT Alkaline Phosphatase Lactate Dehydrogenase Total Protein Albumin 08/14/21 08/14/21 08/14/21 03:54 03:54 03:54 WBC 10.92 H RBC 3.11 L Hgb 9.9 L Hct 29.9 L MCV 96.1 H MCHC Plt Count 102 L MPV Absolute Neutrophils 7.91 H Absolute Monocytes Sodium Creatinine Glucose Uric Acid Calcium 7.0 L Magnesium 4.8 H* AST 87 H ALT 99 H Alkaline Phosphatase Lactate Dehydrogenase Total Protein 5.0 L Albumin 2.0 L 08/15/21 08/15/21 07:05 07:05 WBC RBC 3.36 L Hgb 10.5 L Hct 33.1 L MCV 98.5 H MCHC 31.7 L Plt Count 125 L MPV Absolute Neutrophils Absolute Monocytes Sodium Creatinine Glucose Uric Acid Calcium 8.2 L Magnesium AST 81 H ALT 101 H Alkaline Phosphatase Lactate Dehydrogenase Total Protein 5.7 L Albumin 2.3 L
--- NOTE | 2021-08-15 09:45 | W.PM.OBDISCH ---
Date of service: 08/15/21 Time of Service: 09:46 DS: Diagnosis Discharge Diagnosis (1) HELLP syndrome, delivered, current hospitalization: Status: Acute (2) Pre-eclampsia, : Status: Acute (3) Lactating mother: Status: Acute (4) (normal spontaneous vaginal delivery): Status: Acute Discharge Plan Disposition Patient Disposition: HOME Condition: Good Discharge Details Reason For Visit: , HELLP syndrome Admit Date/Time: 08/11/21 18:17 Admit Provider: Earnestine Martinez Attending Provider: Earnestine Martinez Primary Care Provider: Fran Loya [facility] Hospital Course: Patient was admitted at 39 weeks with elevated blood pressure and increased Protein/creatinine ration. She had a labor induction with cervical ripening via cervidil, followed by of a viable female . In the post period she developed elevated liver enzymes, thrombocytopenia, and altered renal function consistant with HELLP syndrome. She also developed markedly high blood pressures warranting IV followed by oral labetalol, and recieved post magnesium sulfate for seizure protection. LAbs and pressures stabalized. Patient had a brisk diuresis, and was stable for D/C 08/15/2021 with close post follow up on PO Labetalol 300mg BID Home Meds and New Rx's Prescriptions: New ibuprofen 800 mg tablet 800 mg PO Q8H PRNQty: 30 RF: 0 labetalol 100 mg tablet 300 mg PO BID Qty: 120 RF: 1 Continued albuterol sulfate [ProAir HFA] 90 mcg/actuation HFA aerosol inhaler 1 - 2 puff Inhalation Q4H PRN Qty: 18 RF: 8 Classic 28 mg iron- 800 mcg tablet 1 tab PO DAILY RF: 0 Discharge Instructions Stand Alone Forms: BC Post Vaginal Deliver Referrals: Brittany Sidhu DO [OSTEOPATHIC DOCTOR] - Activity:: Activity as Tolerated Equipment/Supplies:: No Equipment Needed Diet:: As Tolerated Discharge Orders Discharge Orders: Discharge Order (Routine); Ordered 08/15/21 Ordered By: Brittany Sidhu OB:DS Summary Summary Vaginal Delivery Method: Spontaneaous Episiotomy Description: Midline Laceration Description: Perineal Laceration Extension: First Degree Contraception Discussed Contraception Discussed: Yes, Gender-Baby A: Female weight: 6 lb 4.707 oz Status at Discharge Functional status at discharge: independent ambulation Overall status at discharge: patient is progressing back to baseline Mental Status: mental status grossly normal Speech and Movement: speech and movement normal Mood: congruent mood Affect: normal affect Exam Physical Exam Vital signs: Temp Pulse Resp BP Pulse Ox 98.1 F 70 18 150/90 H 98 08/15/21 08:30 08/15/21 08:30 08/15/21 08:30 08/15/21 08:30 08/15/21 00:58 Constitutional Comments: See exam dated 08/15/2021 [facility] All Active Problems (normal spontaneous vaginal delivery) (Acute) HELLP syndrome, delivered, current hospitalization (Acute) Pre-eclampsia, (Acute) Lactating mother (Acute) Elevated liver enzymes (Acute) care following vaginal delivery (Acute) Lead exposure (Acute) Low TSH level (Acute) Enlarged thyroid (Acute) History of frequent headaches (Acute) non-migrainus in nature Asthma (Chronic ~01/14/10) Medical History Acne (~10/05/08) Cellulitis of eyelid (~01/11/08) Cellulitis of face (~02/13/08) Cellulitis, toe (~12/26/07) Elevated blood pressure affecting in third trimester, antepartum Leaking of urine Pre-eclampsia in third trimester Family History Sister No problems noted. Sister No problems noted. Brother No problems noted. Brother No problems noted. Maternal Grandfather , 84 Hyperlipidemia Paternal Grandfather , 69 Alcohol abuse Maternal Grandmother , 83 High cholesterol Macular degeneration Paternal Grandmother , 84 High cholesterol Social History Smoking/Tobacco Use Status: Former Tobacco Use tobacco type: cigarettes Quit Date: 08/23/06 Smokeless tobacco user: chewing tobacco Smoking risk assessment performed?: Yes Alcohol Intake: never Drug use: Never Substance use type: does not use Caregiver/Support person: Yes Household members: spouse Housing: house Communication Needs: None and Corrective Lenses Do you need help understanding health information?: Never Pets and animals: Yes Pets and animals: dog(s) Sexually active: Yes Do you think of yourself as: straight/heterosexual Current gender identity: female What is your relationship status?: How often do you talk on the phone with friends or family?: three or more times per week How often do you get together with friends or relatives?: three or more times per week How often do you attend hoahaoism or church services?: 1-3 times per year Do you belong to any clubs or organized social groups?: yes Panel score (0-1 are the most socially isolated patients): 3 What type of physical activity do you participate in: walking, bicycling, running and yoga Duration: 30-45 minutes/day Frequency: daily Ashli/Rastafari: Oriental Orthodox Special ashli needs: No Seatbelt use: always Helmet use: Yes Helmet use: always Drive intox or ride w/intox tour bus driver: No History History 1 Para 0 Hx # Term Pregnancies 0 Multiple births 0 Hx # Pregnancies 0 Ectopic pregnancies 0 AB induced 0 Hx Number of Living Children 0 AB spontaneous 0 DS: Data Vitals/I&O Vitals and I&O: Vital Signs Temperature 98.1 F 08/15/21 08:30 Temperature Source Tympanic 08/14/21 00:00 Pulse 70 08/15/21 08:30 Pulse Rhythm Regular 08/15/21 08:35 Respiratory Rate 18 08/15/21 08:30 Respiratory Depth Normal 08/14/21 19:35 Blood Pressure 150/90 H 08/15/21 08:30 Blood Pressure Mean 110 08/15/21 08:30 Pulse Oximetry 98 08/15/21 00:58 Oxygen Delivery Method Room Air 08/14/21 04:07 Oxygen Flow Rate 0 08/14/21 04:07 Pain Level 0 08/14/21 18:08 Comment 08/14/21 18:00 Intake & Output 08/14/21 08/14/21 08/15/21 11:59 23:59 11:59 Intake Total 3150 / 3150 Output Total 4500 / 5900 1400 / 5900 1800 / 1800 Balance -1350 / -2750 -1400 / -2750 -1800 / -1800 Intake: IV 1500 / 1500 Oral 1650 / 1650 Output: Urine 4500 / 5900 1400 / 5900 1800 / 1800 Other: Urine Color Pale Yellow Pale Urine Appearance Clear Clear Clear Urine Odor None None Normal Voiding Methods Toilet Toilet Indwelling Catheter Data Completed and Pending Labs on day of discharge: Labs from last 24 hours 08/15/21 08/15/21 07:05 07:05 WBC 9.55 RBC 3.36 L Hgb 10.5 L Hct 33.1 L MCV 98.5 H MCH 31.3 MCHC 31.7 L RDW 12.2 Plt Count 125 L MPV 10.4 Sodium 140 Potassium 4.3 Chloride 107 Carbon Dioxide 27.3 Anion Gap 5.7 BUN 11 Creatinine 0.7 Estimated GFR/1.73 m2 >= 60.00 Glucose 74 Calcium 8.2 L Total Bilirubin 0.3 AST 81 H ALT 101 H Alkaline Phosphatase 110 Total Protein 5.7 L Albumin 2.3 L
[2021-08-15 09:49] VITALS: BP 150/90
[2021-08-15] MEDS: Labetalol 100 MG TAB PO (10:02)
[2021-08-15 11:34] VITALS: BP 132/90
== END 2021-08-15 11:30 | disposition home or self-care (01) | DRG 807 ==
PROVIDERS: Advanced Practice Midwife; Obstetrics & Gynecology; Obstetrics & Gynecology Gynecology; Admitting Provider Advanced Practice Midwife; PCP Emergency Medicine; Visit Provider Advanced Practice Midwife
DX: O14.94 Unspecified pre-eclampsia, complicating childbirth (principal); Z37.0 Single live birth; Z3A.38 38 weeks gestation of pregnancy; O14.25 HELLP syndrome, complicating the puerperium; J45.909 Unspecified asthma, uncomplicated; E04.9 Nontoxic goiter, unspecified; O69.81X0 Labor and delivery complicated by cord around neck, without compression, not applicable or unspecified; O99.52 Diseases of the respiratory system complicating childbirth; O70.0 First degree perineal laceration during delivery; O66.0 Obstructed labor due to shoulder dystocia; O72.3 Postpartum coagulation defects; D69.6 Thrombocytopenia, unspecified; Z20.822 Contact with and (suspected) exposure to COVID-19
CPT/HCPCS: 36415; 80053; 85027; 86900; 86901; 87635; 59025; 83615; 83735; 84550; 85025; 85610; 85730; J3475; J3490

== ENCOUNTER 2021-08-20 02:12 | Observation (INO) | payer OTHER, SELFPAY ==
[2021-08-20] VITALS (49 sets, daily range): BP systolic 94–169; BP diastolic 55–103; PULSE 55–92; RESP 8–21; TEMP 36.7–37.2; O2SAT 97–100
--- NOTE | 2021-08-20 02:14 | ED.GENADUL_ITS ---
Discharge Plan Disposition Patient Disposition: [facility] Condition: Stable Discharge Details Clinical Impression: Pre-eclampsia in period Admit Date/Time: 08/20/21 03:33 Admit Provider: Brittany Sidhu Attending Provider: Brittany Sidhu Primary Care Provider: Fran Loya ED Provider: Brigid Koch Medical Decision Making 219 -- 30-year-old female G1, P1 with at 39 weeks complicated by preeclampsia and help syndrome presents for headache and hypertension at home that started 90 minutes ago. Blood pressure 160/100 for which she took an extra 100 mg dose of her labetalol p.o. She also took 1000 mg of ibuprofen and now has significant improvement of her headache. Blood pressure 166/95 on arrival. Remainder vitals within normal limits. Recheck BP 153/91. She states her headache is currently 1/10. She appears comfortable and nontoxic. No focal deficits. No clonus. As the headache started gradually and is now resolved, this is reassuring and do not see an indication for CT head imaging at this time. Dr. Sidhu now also at bedside and agreeable with plan for labetalol 10 mg IV x1. Would like to hold on IV magnesium at this time. Screening labs including CBC, CMP and urinalysis ordered. Normal platelets. Improvement in AST, slight increase in ALT. Patient has been unable to give urine sample. 0300 -- BP 152/103. Dr. Sidhu would like Procardia 10 mg p.o. x1 and if no improvement of blood pressure, repeat dose after 15 minutes. Goal BP is around 150s/80s. 0320 -- BP reading 190s/170s, cuff changed to a smaller size and BP 155/96. Pt was given another dose of Procardia 10mg PO x 1. 0330 -- BP dropped significantly to 127/82. Dr. Sidhu will accept pt to the center for further monitoring. Will plan for starting IV magnesium on the floor. 0345 -- BP 110/67. Dr. Sidhu would like to hold on IVF due to risk of pulmonary edema with preeclampsia. Pt states her headache remains improved and she denies acute complaints. Pt transferred to the floor in no acute distress. Medical Records Medical records reviewed: Yes I reviewed the patient's medical records. Lab Data Lab results reviewed: Yes I reviewed the patient's lab results. Labs: Laboratory Tests Range/Units 08/20/21 08/20/21 08/20/21 02:23 02:23 03:05 WBC (4.4-10.8) 10^3/uL 7.89 RBC (3.93-5.22) 10^6/uL 3.89 L Hgb (11.2-15.7) g/dL 12.1 Hct (36.0-46.0) % 38.4 MCV (80-95) fL 98.7 H MCH (27.0-33.0) pg 31.1 MCHC (32.0-36.0) % 31.5 L RDW (11.7-14.6) % 12.3 Plt Count (130-400) 10^3/uL 308 D MPV (8.0-11.0) fL 9.6 Immature Gran % 0.6 Neutrophils % 55.4 Lymphocytes % 29.7 Monocytes % 7.5 Eosinophils % 5.7 Basophils % 1.1 Nucleated RBC % % 0 Absolute Neutrophils (1.2-6.7) 10^3/uL 4.37 Absolute Lymphocytes (1.2-3.4) 10^3/uL 2.34 Absolute Monocytes (0.1-0.8) 10^3/uL 0.59 Absolute Eosinophils (0.0-0.7) 10^3/uL 0.45 Absolute Basophils (0.0-0.2) 10^3/uL 0.09 Sodium (136-145) mmol/L 137 Potassium (3.5-5.1) mmol/L 4.2 Chloride (98-107) mmol/L 102 Carbon Dioxide (21.0-32.0) mmol/L 27.3 Anion Gap (3-11) mmol/L 7.7 BUN (7-18) mg/dL 17 Creatinine (0.55-1.02) mg/dL 0.9 Estimated GFR/1.73 m2 (mL/min/1.73m2) >= 60.00 Glucose (74-106) mg/dL 107 H Calcium (8.5-10.1) mg/dL 8.5 Total Bilirubin (0.2-1.0) mg/dL 0.5 AST (15-37) U/L 55 H ALT (14-59) U/L 113 H Alkaline Phosphatase (46-116) U/L 129 H Total Protein (6.4-8.2) g/dL 7.0 Albumin (3.4-5.0) g/dL 3.1 L COVID-19 Source Nasal/Nares HPI General Mode of arrival: ambulatory . Date/Time Provider Initiated Documentation: 08/20/21 02:13 . Limitations to Documentation: no limitations . Information obtained by: patient . HPI Narrative: Patient is a 30-year-old female G1, P1 1 week vaginal at 39 weeks complicated by preeclampsia and HELLP syndrome currently on labetalol 200 mg twice daily presents after sent by OB Dr. Sidhu for evaluation for headache with hypertension at home 160/100 this morning. She states she took 200 mg of her labetalol yesterday morning and last night and then just took an additional 100 mg labetalol with her high blood pressure reading prior to arrival. Patient states she was taking care of her when around 1245 she developed gradual onset of left posterior occipital headache. She states felt aching and is in the same location of her usual headache while in the hospital recently and was 7/10 at its worst. She states she took 200 mg of ibuprofen but had no relief so took an additional 800 mg and now states her headache is 1/10. She states on the way to the hospital she felt pulsations in her lower leg but states this is now resolved. She states her blood pressure was as high as a systolic of 200s over 120s while in the hospital recently and had sudden onset of headache and states this does not feel similar to that as the headache started gradually this morning. Related Data Home Medications Medication Instructions Recorded Confirmed vits no.[id number] fum 1 tab PO DAILY tab 01/14/21 08/20/21 28 mg iron-folic acid 800 mcg tablet albuterol sulfate 90 mcg/actuation 1 - 2 puff INHALATION Q4H PRN #18 g 06/10/21 08/20/21 aerosol inhaler ibuprofen 800 mg PO Q8H PRN #30 tab 08/15/21 08/20/21 labetalol 200 mg PO BID 08/20/21 08/20/21 Previous Rx's Medication Instructions Recorded albuterol sulfate 90 mcg/actuation 1 - 2 puff INHALATION Q4H PRN #18 g 06/10/21 aerosol inhaler ibuprofen 800 mg PO Q8H PRN #30 tab 08/15/21 Allergies Allergy/AdvReac Type Severity Reaction Status Date / Time cat dander Allergy Unknown Verified 08/20/21 02:24 horse dander Allergy Unknown Verified 08/20/21 02:24 house dust Allergy Unknown Verified 08/20/21 02:24 pollen extracts Allergy Unknown Verified 08/20/21 02:24 Review of Systems All systems reviewed & are unremarkable except as noted in HPI and below Constitutional Constitutional: Reports as per HPI, Denies chills, Denies fever(s) and Reports headache(s) Eyes Eyes: Denies blurry vision ENT Ears, Nose, Mouth, and Throat: Denies dizziness, Reports headache(s), Denies sore throat and Denies throat swelling Cardiovascular Cardiovascular: Denies chest pain and Denies dyspnea Respiratory Respiratory: Denies cough and Denies dyspnea Gastrointestinal Gastrointestinal: Denies abdominal pain, Denies diarrhea and Denies vomiting Genitourinary Genitourinary: Denies hematuria and Denies dysuria Musculoskeletal Musculoskeletal: Denies back pain and Denies numbness Integumentary/Breasts Skin/Breast: Denies lesions and Denies rash Neurologic Neurologic: Denies dizziness, Reports headache(s), Denies localized weakness and Denies numbness Allergic/Immunologic Allergic/Immunologic: Denies throat swelling PFSH All Active Problems (Updated 08/20/21 @ 03:11 by Brigid Koch DO) Pre-eclampsia in period (Acute) Pre-eclampsia, (Acute) Lactating mother (Acute) care following vaginal delivery (Acute) 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 Sister No problems noted. Brother No problems noted. Brother No problems noted. Maternal Grandfather , 84 Hyperlipidemia Paternal Grandfather , 69 Alcohol abuse Maternal Grandmother , 83 High cholesterol Macular degeneration Paternal Grandmother , 84 High cholesterol Social History Smoking/Tobacco Use Status: Never Smokeless tobacco user: chewing tobacco Smoking risk assessment performed?: Yes Alcohol Intake: never Drug use: Never Substance use type: does not use Caregiver/Support person: Yes Household members: spouse Housing: house Communication Needs: None and Corrective Lenses Do you need help understanding health information?: Never Pets and animals: Yes Pets and animals: dog(s) Sexually active: Yes Do you think of yourself as: straight/heterosexual Current gender identity: female What is your relationship status?: How often do you talk on the phone with friends or family?: three or more times per week How often do you get together with friends or relatives?: three or more times per week How often do you attend faith or latter day services?: 1-3 times per year Do you belong to any clubs or organized social groups?: yes Panel score (0-1 are the most socially isolated patients): 3 What type of physical activity do you participate in: walking, bicycling, running and yoga Duration: 30-45 minutes/day Frequency: daily Ashli/Rastafari: Christianity Special ashli needs: No Seatbelt use: always Helmet use: Yes Helmet use: always Drive intox or ride w/intox driver medic: No History History 1 Para 1 Hx # Term Pregnancies 1 Multiple births 0 Hx # Pregnancies 0 Ectopic pregnancies 0 AB induced 0 Hx Number of Living Children 1 AB spontaneous 0 Past Pregnancies Del. Date GA/Weeks # Outcome Route Wgt Sex Labor Lgth Anesthes ia Location Prov Complic 08/12/21 38 No Successful vaginal 2854.797 g Female MAYDA Gray other Delivery Date: 08/12/21 HELLP Syndrome. Brittany Cedillo Exam Const General: cooperative, healthy appearing and no acute distress HENMT Head: normal to inspection Face and sinus: normal facial exam Eyes General: appearance normal, both eyes and all related structures Pupils: PERRL EOM: EOM intact bilaterally Neck Neck: normal visual inspection and No submandibular swelling Lymphatic: no lymphadenopathy noted Chest Chest: normal inspection of the chest and no tenderness Resp Effort & Inspection: normal respiratory effort and able to speak in complete sentences Auscultation: clear to auscultation bilaterally Cardio Rate: regular rate Rhythm: regular rhythm GI Inspection: normal to inspection Palpation: soft, not firm, not rigid and nontender Auscultation: normal bowel sounds Skin General skin exam: no rashes or lesions noted Neuro General: patient alert, patient awake, patient oriented x3, moves all extremities, no meningeal signs and no focal motor deficits Cranial Nerves: CN's II-XI intact bilaterally Cognition: normal cognition Speech: speech normal Motor: muscle tone normal throughout, strength 5/5 throughout and no fasc iculations (no ankle clonus b/l) Sensory Exam: no sensory deficits noted Extrem General: normal to inspection, full ROM, capillary refill normal, no calf tenderness bilaterally and no edema Other: B/L DP/PT pulses intact. Psych Appearance: grossly normal Mental Status: mental status grossly normal Speech and Movement: speech and movement normal Affect: normal affect
[2021-08-20 02:31] LABS: Abs Immature Grans 0.05 10^3/uL (0.0-0.06); Absolute Basophil Count 0.09 10^3/uL (0.0-0.2); Absolute Eosinophil Count 0.45 10^3/uL (0.0-0.7); Absolute Lymphocyte Count 2.34 10^3/uL (1.2-3.4); Absolute Monocyte Count 0.59 10^3/uL (0.1-0.8); Absolute Neutrophil Count 4.37 10^3/uL (1.2-6.7); Basophils % 1.1; Eosinophils % 5.7; HCT 38.4 % (36.0-46.0); HGB 12.1 g/dL (11.2-15.7); Immature Grans % 0.6; Lymphocytes % 29.7; MCH 31.1 pg (27.0-33.0); MCHC 31.5 % (32.0-36.0); MCV 98.7 fL (80-95); MPV 9.6 fL (8.0-11.0); Monocytes % 7.5; Neutrophils % 55.4; Nucleated RBC 0 %; Platelet Count 308 10^3/uL (130-400); RBC 3.89 10^6/uL (3.93-5.22); RDW 12.3 % (11.7-14.6); RDW-SD 44.6 fL; WBC 7.89 10^3/uL (4.4-10.8)
[2021-08-20] MEDS: Labetalol 100 MG/20 ML VIAL 10 MG IVP (02:39)
[2021-08-20 02:45] LABS: ALT 113 U/L (14-59); AST 55 U/L (15-37); Albumin 3.1 g/dL (3.4-5.0); Alkaline Phosphatase 129 U/L (46-116); Anion Gap 7.7 mmol/L (3-11); BUN 17 mg/dL (7-18); Bilirubin, Total 0.5 mg/dL (0.2-1.0); CO2 27.3 mmol/L (21.0-32.0); CREATININE 0.9 mg/dL (0.55-1.02); Calcium 8.5 mg/dL (8.5-10.1); Chloride 102 mmol/L (98-107); Glucose 107 mg/dL (74-106); Potassium 4.2 mmol/L (3.5-5.1); Sodium 137 mmol/L (136-145)
[2021-08-20] MEDS: NIFEdipine 10 MG CAP PO ×2 (03:05→03:25)
--- NOTE | 2021-08-20 03:05 | HPE_ITS ---
Date of service: 08/20/21 Time of Service: 03:05 Assessment and Plan Assessment and plan (1) Pre-eclampsia, : Status: Acute Assessment and plan: Will admit to Center. Repeat 24 hours MGSO4 Strict I&O. Anti-hypertensives for BP control. Will add PO Procardia to current Labetalol 300 mg BID. Recieved IV LAbetalol 10 mg addition in ED. 1 Dose PO Procardia in ED Repeat LAb studies Strict I&O [place] [facility] [place] (2) Lactating mother: Status: Acute (3) care following vaginal delivery: Status: Acute OB-HPI Labor/Delivery History of Present Illness Reason for Visit: Preclampsia in Period Chief Complaint: Signs/Symptoms Gestational HTN , Associated Signs and Symptoms of GestationalHTN: elevated BP, headache ; Other (Elevated blood pressure 1 week post ). Comments: Patient is a 30 y/o , 1 week with a complicated by pre-eclampsia with severe features and HELLP syndrome. She as induced for elevated blood pressure, had a and subsequently developed HELLP syndrome with BP in the severe range. She had magnesium sulfate for seizure prophylaxis for 24 hours and with stabilization of BP on PO Labetalol, and labs approaching normal. She was D/C'd to home post day #4 with close follow up. She was seen in the office 08/18 withBP 130/80. Called this AM with elevated BP and headache. She was sent to the ED for evaluation. ? arrival, BP was 169/95 and near complete resolution of headache after 100mg of Tylenol. She was seen and evaluated by Dr. Koch and myself. LAbs have overall improved with PLT 308, and mild elevation of ALT at 113, down from a peak of 173, and slight repeat increase of alk phos. History of Present Narrative: 7 days post Review of Systems All systems reviewed & are unremarkable except as noted in HPI and below Constitutional Constitutional: Reports as per HPI, Denies difficulty sleeping, Denies fatigue, Denies fever(s), Reports headache(s), Denies night sweats, Denies poor appetite and Denies weakness Eyes Eyes: Denies blind spots, Denies blurry vision, Denies change in vision, Denies diplopia, Denies irritation, Denies loss of vision and Denies photophobia ENT Ears, Nose, Mouth, and Throat: Reports as per HPI, Denies abnormal hearing, Denies vertigo, Denies dizziness, Reports headache(s) and Denies nasal conge stion Cardiovascular Cardiovascular: Denies chest pain, Denies chest pain at rest, Denies chest pain with activity, Denies rapid heart rate, Denies edema, Denies irregular heart rhythm, Denies dyspnea and Denies dyspnea on exertion Respiratory Respiratory: Denies chest congestion, Denies cough, Denies dyspnea and Denies dyspnea on exertion Gastrointestinal Gastrointestinal: Denies abdominal pain, Denies bloating, Denies constipation, Denies cramping, Denies diarrhea and Denies vomiting Genitourinary Genitourinary: Denies abnormal vaginal bleeding Comments: physiologic lochia Musculoskeletal Musculoskeletal: Denies abnormal gait, Denies arthralgias, Denies muscle weakness and Denies numbness Integumentary/Breasts Skin/Breast: Denies breast pain and Denies breast mass Comments: breast feeding well Neurologic Neurologic: Denies abnormal hearing, Denies abnormal movements, Denies abnormal speech, Denies abnormal gait, Denies behavioral changes, Denies confusion, Denies vertigo, Denies dizziness, Reports headache(s), Denies loss of vision, Denies numbness, Denies convulsions, Denies seizure-like activity, Denies tremor(s) and Denies weakness Psychiatric Psychiatric: Denies anxiety, Denies behavioral changes, Denies change in appetite, Denies confusion and Denies depression Endocrine Endocrine: Denies fatigue Hematologic/Lymphatic Hematologic/Lymphatic: Denies easy bleeding and Denies easy bruising PFSH All Active Problems (Updated 08/20/21 @ 03:11 by Brigid Koch DO) Pre-eclampsia in period (Acute) Pre-eclampsia, (Acute) Lactating mother (Acute) care following vaginal delivery (Acute) 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 Sister No problems noted. Brother No problems noted. Brother No problems noted. Maternal Grandfather , 84 Hyperlipidemia Paternal Grandfather , 69 Alcohol abuse Maternal Grandmother , 83 High cholesterol Macular degeneration Paternal Grandmother , 84 High cholesterol Social History Smoking/Tobacco Use Status: Former Tobacco Use tobacco type: cigarettes Quit Date: 08/23/06 Smokeless tobacco user: chewing tobacco Smoking risk assessment performed?: Yes Alcohol Intake: never Drug use: Never Substance use type: does not use Caregiver/Support person: Yes Household members: spouse Housing: house Communication Needs: None and Corrective Lenses Do you need help understanding health information?: Never Pets and animals: Yes Pets and animals: dog(s) Sexually active: Yes Do you think of yourself as: straight/heterosexual Current gender identity: female What is your relationship status?: How often do you talk on the phone with friends or family?: three or more times per week How often do you get together with friends or relatives?: three or more times per week How often do you attend religious or holiness services?: 1-3 times per year Do you belong to any clubs or organized social groups?: yes Panel score (0-1 are the most socially isolated patients): 3 What type of physical activity do you participate in: walking, bicycling, running and yoga Duration: 30-45 minutes/day Frequency: daily Ashli/Holiness: Sikhism Special ashli needs: No Seatbelt use: always Helmet use: Yes Helmet use: always Drive intox or ride w/intox hazmat tanker driver: No Do you feel safe at home: Yes Do you feel safe in your relationship?: Yes History History 1 Para 1 Hx # Term Pregnancies 1 Multiple births 0 Hx # Pregnancies 0 Ectopic pregnancies 0 AB induced 0 Hx Number of Living Children 1 AB spontaneous 0 Past Pregnancies Del. Date GA/Weeks # Outcome Route Wgt Sex Labor Lgth Anesthes ia Location Prov Complic 08/12/21 38 No Successful vaginal 6 lb 4.7 oz Female [facility] other Delivery Date: 08/12/21 HELLP Syndrome. [place]any [place] Allergies and Home Medications Allergies Allergy/AdvReac Type Severity Reaction Status Date / Time cat dander Allergy Unknown Verified 08/20/21 02:24 horse dander Allergy Unknown Verified 08/20/21 02:24 house dust Allergy Unknown Verified 08/20/21 02:24 pollen extracts Allergy Unknown Verified 08/20/21 02:24 Home Medications Medication Instructions Recorded Confirmed Type vits no.[id number]-ferrous fum 1 tab PO DAILY tab 01/14/21 08/20/21 History 28 mg iron-folic acid 800 mcg tablet albuterol sulfate 90 mcg/actuation 1 - 2 puff INHALATION Q4H PRN #18 g 06/10/21 08/20/21 Rx aerosol inhaler ibuprofen 800 mg PO Q8H PRN #30 tab 08/15/21 08/20/21 Rx labetalol 200 mg PO BID 08/20/21 08/20/21 History Exam Physical Exam Vital signs: Temp Pulse Resp BP Pulse Ox 98.8 F 73 18 163/91 H 97 08/20/21 02:18 08/20/21 02:39 08/20/21 02:18 08/20/21 02:39 08/20/21 02:18 Constitutional Constitutional: no acute distress and thin Detailed Labor and Delivery Exam Jang Score: Cervical Points Exam 0 1 2 3 Dilation Closed 1-2cm 3-4 cm 5-6cm Effacement 0-30% 40-50% 60-70% 80% Consistency Firm Medium Soft Station -3 -2 -1,0 +1,+2 Position Posterior Mid Anterior Detailed HEENT Exam Head: Present normocephalic and atraumatic Eye: Present EOMI and PERRL ENT: Present mucous membranes moist Detailed Neck Exam Neck exam general surgery: Present supple and full ROM Detailed Respiratory Exam Respiratory: Present CTA bilaterally; Absent rales, rhonchi and wheezes Detail Cardiovascular Exam Cardiovascular: Present RRR, S1 and S2; Absent murmur Detailed Abdominal Exam Abdominal: Present soft; Absent tenderness and distended Detailed Extremities Exam Extremities: Present full ROM and pulses intact; Absent cyanosis, clubbing, edema, calf tenderness and tenderness Skin Exam Skin Exam: Normal Detailed Neurological Exam Neurological: Present alert, oriented X3, CN II-XII intact, moving all extremities, vision grossly intact and normal speech; Absent sensory deficit, motor deficit, normal reflexes (3/4, brisk, no clonus), clonus and tremors DetailedPsychiatric Exam Psychiatric: Present normal affect and normal thought process; Absent anxious a nd agitated Results Abnormal Lab Findings: Abnormal Labs 08/20/21 08/20/21 02:23 02:23 RBC 3.89 L MCV 98.7 H MCHC 31.5 L Glucose 107 H AST 55 H ALT 113 H Alkaline Phosphatase 129 H Albumin 3.1 L Risk Assessment Risk for Shoulder Dystocia Historical/Initial OB: NEGATIVE FOR: Pelvic Abnormality, Pre- BMI>30, Previous Shoulder Dystocia or Previous Macrosomia 40 Weeks: NEGATIVE FOR: EFW> 4500 gms, Maternal Weight Gain >40lb or Post Dates Delivery Plan @ 40 wks: 08/11/21 Risk for Pre-Eclampsia Yes, if one or more: NEGATIVE FOR: Hx Pre-E/Gest HTN, Chronic HTN, Multiple Gestation, Pre-gestational DM, Renal Disease, Systemic Lupus or APA Syndrome Yes, if 2 or more: NEGATIVE FOR: Nulliparity, Age>= 35 yrs, >10yr btwn pregnancies, BMI>30, ethinicty, Mother/Sister w/ Pre-E or Previous IUGR Risk for Post- Hemorrhage Initial: NEGATIVE FOR: Multiple Gestation, Previous PPH, Known Clotting Deficiency, Grand Multiparity or Anticoagulation Risks Reviewed Risks Reviewed Upon Admission: Yes (Post )
[2021-08-20] MEDS: Lactated Ringers 1,000 ML 250 ML IV (04:23)
[2021-08-20 04:35] LABS: Bilirubin Negative (Negative); Blood Large (Negative); Clarity Sl Cloudy (Clear); Glucose Negative (Negative); Ketones Negative (Negative); Leukocyte Esterase Trace (Negative); Nitrite Negative (Negative); Specific Gravity 1.015 (1.005-1.025); Urobilinogen 0.2 EU/dL (Up TO 0.2)
[2021-08-20 04:36] LABS: Bacteria Few HPF (Negative); C & S Indicated? Yes; Casts Negative LPF (Negative); Crystals Negative HPF (Negative); Epithelial Cells Rare HPF (Negative); Mucus Negative (Negative)
[2021-08-20] MEDS: MAGNESIUM SULFATE 4 GM/100 ML BAG IVPB (04:56)
--- NOTE | 2021-08-20 05:06 | OBPPV_ITS ---
Date of service: 08/20/21 Time of Service: 05:06 Assessment and Plan Assessment and plan (1) Pre-eclampsia in period: Status: Acute Assessment and plan: Repeat magnesium for minimum of 24 hours. Levels every 6 hours. PO antihypertensives as needed. LAbetalol ordered. May add procardia (2) Lactating mother: Status: Acute Assessment and plan: supportive care Subjective Subjective Interval history: Seen on the Center. BP is improved after PO procardia. IV site moved. Mag bolus started. All questions answered Patient comments: No complaints [place] baby status: Doing well and Nursing well [place] feeding status: Exclusively breast feeding Exam Physical Exam Vital signs: Temp Pulse Resp BP Pulse Ox 98.8 F 87 8 L 110/67 98 08/20/21 02:18 08/20/21 03:45 08/20/21 03:50 08/20/21 03:45 08/20/21 03:24 Constitutional Constitutional: no acute distress HEENT Exam HEENT Exam: Normal Neck Exam Neck Exam: Normal Respiratory Exam Respiratory Exam: Normal Cardiovascular Exam Cardiovascular Exam: Normal Extremities Exam Extremity Exam: Normal; negative Calf Tenderness and Edema Detailed Neurological Exam Neurological: Present alert, oriented X3, CN II-XII intact, normal reflexes, normal tone and vision grossly intact; Absent motor deficit Results Hemoglobin/Hematocrit: Hgb 12.1 g/dL (11.2-15.7) 08/20/21 02:23 Hct 38.4 % (36.0-46.0) 08/20/21 02:23 Abnormal Lab Findings: Abnormal Labs 08/20/21 08/20/21 08/20/21 02:23 02:23 04:15 RBC 3.89 L MCV 98.7 H MCHC 31.5 L Glucose 107 H AST 55 H ALT 113 H Alkaline Phosphatase 129 H Albumin 3.1 L Urine Blood Large H Ur Leukocyte Esterase Trace H Urine RBC 10-20 H
[2021-08-20 05:27] LABS: Source Nasal/Nares
[2021-08-20] MEDS: MAGNESIUM SULFATE 20 GM/500 ML BAG IV (05:53)
[2021-08-20 05:58] LABS: COVID-19 PCR Negative (Negative)
[2021-08-20 07:00] LABS: Magnesium 4.4 mg/dL (1.8-2.4)
--- NOTE | 2021-08-20 07:56 | W.PM.PROGNOT ---
Date of Service Date of service: 08/20/21 Time of Service: 07:56 Assessment and Plan Assessment and plan (1) Pre-eclampsia in period: Status: Acute Assessment and plan: Blood pressure has normalized with magnesium sulfate infusion and 1 dose of Procardia followed by labetalol. We will continue magnesium sulfate and labetalol. Magnesium level is in satisfactory range. (2) Elevated liver function tests: Status: Acute Assessment and plan: Repeat liver function test at 12:00 today. Subjective Subjective Patient reports: feels better and voiding w/o difficulty; denies nausea and shortness of breath Interval history since last seen: headache resolved. Exam Narrative Exam Narrative: I have assumed care of the patient. Since admission she has had stabilization of her blood pressure after nifedipine administered in the emergency room denied labetalol on a scheduled basis. Her magnesium sulfate is currently infusing at 2 g/h. Most recent magnesium sulfate level 4.4 mg/dL. Const General: comfortable and no acute distress Nutritional Appearance: average body habitus Orientation: alert, awake and oriented x3 Chest Breast inspection: normal inspection of the breasts Resp Effort & Inspection: normal respiratory effort Auscultation: clear to auscultation bilaterally GI Palpation: soft, no hepatosplenomegaly, mass (Uterine fundus involuting appropriately) and nontender General: deferred Skin General skin exam: no rashes or lesions noted Extrem General: normal to inspection, full ROM (No clonus, DTRs 1+ bilaterally) and no pedal edema Psych Appearance: grossly normal Mental Status: mental status grossly normal Speech and Movement: speech and movement normal Mood: congruent mood Affect: normal affect Objective Last Vital Signs Temp 98.4 F 08/20/21 07:15 Pulse 70 08/20/21 07:15 Resp 16 08/20/21 07:15 BP 118/75 08/20/21 07:15 Pulse Ox 98 08/20/21 07:15 Laboratory Results - last 24 hr 08/20/21 08/20/21 08/20/21 02:23 02:23 03:05 WBC 7.89 RBC 3.89 L Hgb 12.1 Hct 38.4 MCV 98.7 H MCH 31.1 MCHC 31.5 L RDW 12.3 Plt Count 308 D MPV 9.6 Immature Gran % 0.6 Neutrophils % 55.4 Lymphocytes % 29.7 Monocytes % 7.5 Eosinophils % 5.7 Basophils % 1.1 Nucleated RBC % 0 Absolute Neutrophils 4.37 Absolute Lymphocytes 2.34 Absolute Monocytes 0.59 Absolute Eosinophils 0.45 Absolute Basophils 0.09 Sodium 137 Potassium 4.2 Chloride 102 Carbon Dioxide 27.3 Anion Gap 7.7 BUN 17 Creatinine 0.9 Estimated GFR/1.73 m2 >= 60.00 Glucose 107 H Calcium 8.5 Magnesium Total Bilirubin 0.5 AST 55 H ALT 113 H Alkaline Phosphatase 129 H Total Protein 7.0 Albumin 3.1 L Urine Color Urine Clarity Urine pH Ur Specific [place] Urine Protein Urine Ketones Urine Blood Urine Nitrite Urine Bilirubin Urine Urobilinogen Ur Leukocyte Esterase Urine RBC Urine WBC Ur Epithelial Cells Urine Crystals Urine Bacteria Urine Casts Urine Mucus Ur Culture Indicated? Urine Glucose COVID-19 Source Cancelled SARS-CoV-2 (PCR) Cancelled 08/20/21 08/20/21 08/20/21 03:05 04:15 05:19 WBC RBC Hgb Hct MCV MCH MCHC RDW Plt Count MPV Immature Gran % Neutrophils % Lymphocytes % Monocytes % Eosinophils % Basophils % Nucleated RBC % Absolute Neutrophils Absolute Lymphocytes Absolute Monocytes Absolute Eosinophils Absolute Basophils Sodium Potassium Chloride Carbon Dioxide Anion Gap BUN Creatinine Estimated GFR/1.73 m2 Glucose Calcium Magnesium Total Bilirubin AST ALT Alkaline Phosphatase Total Protein Albumin Urine Color Yellow Urine Clarity Sl Cloudy Urine pH 7.0 Ur Specific [place] 1.015 Urine Protein Negative Urine Ketones Negative Urine Blood Large H Urine Nitrite Negative Urine Bilirubin Negative Urine Urobilinogen 0.2 Ur Leukocyte Esterase Trace H Urine RBC 10-20 H Urine WBC 5-10 Ur Epithelial Cells Rare Urine Crystals Negative Urine Bacteria Few Urine Casts Negative Urine Mucus Negative Ur Culture Indicated? Yes Urine Glucose Negative COVID-19 Source Nasal/Nares Cancelled SARS-CoV-2 (PCR) Negative Cancelled 08/20/21 06:14 WBC RBC Hgb Hct MCV MCH MCHC RDW Plt Count MPV Immature Gran % Neutrophils % Lymphocytes % Monocytes % Eosinophils % Basophils % Nucleated RBC % Absolute Neutrophils Absolute Lymphocytes Absolute Monocytes Absolute Eosinophils Absolute Basophils Sodium Potassium Chloride Carbon Dioxide Anion Gap BUN Creatinine Estimated GFR/1.73 m2 Glucose Calcium Magnesium 4.4 H* Total Bilirubin AST ALT Alkaline Phosphatase Total Protein Albumin Urine Color Urine Clarity Urine pH Ur Specific [place] Urine Protein Urine Ketones Urine Blood Urine Nitrite Urine Bilirubin Urine Urobilinogen Ur Leukocyte Esterase Urine RBC Urine WBC Ur Epithelial Cells Urine Crystals Urine Bacteria Urine Casts Urine Mucus Ur Culture Indicated? Urine Glucose COVID-19 Source SARS-CoV-2 (PCR)
[2021-08-20] MEDS: Prenatal Multivitamin w/CA,FE TAB 1 TAB PO (08:52)
[2021-08-20] MEDS: Labetalol 100 MG TAB 200 MG PO ×2 (08:52→19:33)
[2021-08-20 12:26] LABS: Abs Immature Grans 0.03 10^3/uL (0.0-0.06); Absolute Basophil Count 0.08 10^3/uL (0.0-0.2); Absolute Eosinophil Count 0.33 10^3/uL (0.0-0.7); Absolute Lymphocyte Count 1.61 10^3/uL (1.2-3.4); Absolute Monocyte Count 0.49 10^3/uL (0.1-0.8); Absolute Neutrophil Count 5.73 10^3/uL (1.2-6.7); HCT 38.1 % (36.0-46.0); HGB 12.4 g/dL (11.2-15.7); Immature Grans % 0.4; Lymphocytes % 19.5; MCH 31.5 pg (27.0-33.0); MCHC 32.5 % (32.0-36.0); MCV 96.7 fL (80-95); MPV 9.4 fL (8.0-11.0); Monocytes % 5.9; Neutrophils % 69.2; Nucleated RBC 0 %; Platelet Count 327 10^3/uL (130-400); RBC 3.94 10^6/uL (3.93-5.22); RDW 12.2 % (11.7-14.6); RDW-SD 43.7 fL; WBC 8.27 10^3/uL (4.4-10.8)
[2021-08-20 12:39] LABS: ALT 103 U/L (14-59); AST 49 U/L (15-37); Albumin 3.1 g/dL (3.4-5.0); Alkaline Phosphatase 120 U/L (46-116); Anion Gap 5.1 mmol/L (3-11); BUN 14 mg/dL (7-18); Bilirubin, Total 0.4 mg/dL (0.2-1.0); CO2 29.9 mmol/L (21.0-32.0); CREATININE 0.7 mg/dL (0.55-1.02); Calcium 8.5 mg/dL (8.5-10.1); Chloride 104 mmol/L (98-107); Glucose 99 mg/dL (74-106); Potassium 4.1 mmol/L (3.5-5.1); Sodium 139 mmol/L (136-145); Total Protein 6.8 g/dL (6.4-8.2)
[2021-08-20 12:40] LABS: Magnesium 4.5 mg/dL (1.8-2.4)
[2021-08-20] MEDS: Lactated Ringers 1,000 ML 75 ML IV (13:23)
[2021-08-20] MEDS: Ibuprofen 800 MG TAB PO (16:38)
--- NOTE | 2021-08-20 18:00 | PGE_ITS ---
Date of Service Date of service: 08/20/21 Time of Service: 18:00 Assessment and Plan Assessment and plan (1) Pre-eclampsia in period: Status: Acute Assessment and plan: BP sl elevated this evening, prior to PM dose of Labetalol. Will add Procardia CR 30mg this evening and continue Magnesium Sulfate infusion until the am. H/A may be result of Magnesium infusion or elevation of BP. No change in dose of Labetalol tonight. Continue Magnesium Sulfate infusion until the AM, then stop. Continue serial Magnesium levels. Check CMP in am. Subjective Subjective Interval history since last seen: H/A for the past 3 hours. 3/10 scale. Present after she had taken a nap. Magnesium Sulfate infusion 1gm/hr. Q6hr Magnesium level ~ 4.5mg/dl range. Serial AST, ALT declinining. successfully Exam Const General: no acute distress Nutritional Appearance: average body habitus Orientation: alert, awake and oriented x3 Resp Effort & Inspection: normal respiratory effort GI Palpation: soft General: deferred Neuro Cognition: normal cognition Speech: speech normal Extrem General: normal to inspection (SCDs remain in place.) Psych Appearance: grossly normal Mental Status: mental status grossly normal Speech and Movement: speech and movement normal Mood: congruent mood Affect: normal affect Objective Last Vital Signs Temp 99.0 F 08/20/21 14:31 Pulse 71 08/20/21 16:30 Resp 12 08/20/21 16:30 BP 138/87 08/20/21 16:30 Pulse Ox 98 08/20/21 16:30 Laboratory Results - last 24 hr 08/20/21 08/20/21 08/20/21 02:23 02:23 03:05 WBC 7.89 RBC 3.89 L Hgb 12.1 Hct 38.4 MCV 98.7 H MCH 31.1 MCHC 31.5 L RDW 12.3 Plt Count 308 D MPV 9.6 Immature Gran % 0.6 Neutrophils % 55.4 Lymphocytes % 29.7 Monocytes % 7.5 Eosinophils % 5.7 Basophils % 1.1 Nucleated RBC % 0 Absolute Neutrophils 4.37 Absolute Lymphocytes 2.34 Absolute Monocytes 0.59 Absolute Eosinophils 0.45 Absolute Basophils 0.09 Sodium 137 Potassium 4.2 Chloride 102 Carbon Dioxide 27.3 Anion Gap 7.7 BUN 17 Creatinine 0.9 Estimated GFR/1.73 m2 >= 60.00 Glucose 107 H Calcium 8.5 Magnesium Total Bilirubin 0.5 AST 55 H ALT 113 H Alkaline Phosphatase 129 H Total Protein 7.0 Albumin 3.1 L Urine Color Urine Clarity Urine pH Ur Specific [place] Urine Protein Urine Ketones Urine Blood Urine Nitrite Urine Bilirubin Urine Urobilinogen Ur Leukocyte Esterase Urine RBC Urine WBC Ur Epithelial Cells Urine Crystals Urine Bacteria Urine Casts Urine Mucus Ur Culture Indicated? Urine Glucose COVID-19 Source Cancelled SARS-CoV-2 (PCR) Cancelled 08/20/21 08/20/21 08/20/21 03:05 04:15 05:19 WBC RBC Hgb Hct MCV MCH MCHC RDW Plt Count MPV Immature Gran % Neutrophils % Lymphocytes % Monocytes % Eosinophils % Basophils % Nucleated RBC % Absolute Neutrophils Absolute Lymphocytes Absolute Monocytes Absolute Eosinophils Absolute Basophils Sodium Potassium Chloride Carbon Dioxide Anion Gap BUN Creatinine Estimated GFR/1.73 m2 Glucose Calcium Magnesium Total Bilirubin AST ALT Alkaline Phosphatase Total Protein Albumin Urine Color Yellow Urine Clarity Sl Cloudy Urine pH 7.0 Ur Specific [place] 1.015 Urine Protein Negative Urine Ketones Negative Urine Blood Large H Urine Nitrite Negative Urine Bilirubin Negative Urine Urobilinogen 0.2 Ur Leukocyte Esterase Trace H Urine RBC 10-20 H Urine WBC 5-10 Ur Epithelial Cells Rare Urine Crystals Negative Urine Bacteria Few Urine Casts Negative Urine Mucus Negative Ur Culture Indicated? Yes Urine Glucose Negative COVID-19 Source Nasal/Nares Cancelled SARS-CoV-2 (PCR) Negative Cancelled 08/20/21 08/20/21 08/20/21 06:14 12:20 12:20 WBC 8.27 RBC 3.94 Hgb 12.4 Hct 38.1 MCV 96.7 H MCH 31.5 MCHC 32.5 RDW 12.2 Plt Count 327 MPV 9.4 Immature Gran % 0.4 Neutrophils % 69.2 Lymphocytes % 19.5 Monocytes % 5.9 Eosinophils % 4.0 Basophils % 1.0 Nucleated RBC % 0 Absolute Neutrophils 5.73 Absolute Lymphocytes 1.61 Absolute Monocytes 0.49 Absolute Eosinophils 0.33 Absolute Basophils 0.08 Sodium 139 Potassium 4.1 Chloride 104 Carbon Dioxide 29.9 Anion Gap 5.1 BUN 14 Creatinine 0.7 Estimated GFR/1.73 m2 >= 60.00 Glucose 99 Calcium 8.5 Magnesium 4.4 H* 4.5 H* Total Bilirubin 0.4 AST 49 H ALT 103 H Alkaline Phosphatase 120 H Total Protein 6.8 Albumin 3.1 L Urine Color Urine Clarity Urine pH Ur Specific [place] Urine Protein Urine Ketones Urine Blood Urine Nitrite Urine Bilirubin Urine Urobilinogen Ur Leukocyte Esterase Urine RBC Urine WBC Ur Epithelial Cells Urine Crystals Urine Bacteria Urine Casts Urine Mucus Ur Culture Indicated? Urine Glucose COVID-19 Source SARS-CoV-2 (PCR)
[2021-08-20 18:37] LABS: Magnesium 4.6 mg/dL (1.8-2.4)
[2021-08-20] MEDS: NIFEdipine-CR 30 MG TABCR PO (19:33)
[2021-08-21] VITALS (15 sets, daily range): BP systolic 107–143; BP diastolic 65–91; PULSE 59–97; RESP 14–18; TEMP 36.7–37.4; O2SAT 97–99
[2021-08-21] MEDS: Lactated Ringers 1,000 ML 75 ML IV (00:09)
[2021-08-21] MEDS: MAGNESIUM SULFATE 20 GM/500 ML BAG IV (00:10)
[2021-08-21] MEDS: Ibuprofen 800 MG TAB PO (00:17)
[2021-08-21 00:31] LABS: Magnesium 4.5 mg/dL (1.8-2.4)
[2021-08-21 07:12] LABS: ALT 83 U/L (14-59); AST 41 U/L (15-37); Albumin 2.9 g/dL (3.4-5.0); Alkaline Phosphatase 122 U/L (46-116); Anion Gap 7.7 mmol/L (3-11); BUN 10 mg/dL (7-18); Bilirubin, Total 0.4 mg/dL (0.2-1.0); CO2 26.3 mmol/L (21.0-32.0); CREATININE 0.6 mg/dL (0.55-1.02); Calcium 7.6 mg/dL (8.5-10.1); Chloride 104 mmol/L (98-107); Glucose 90 mg/dL (74-106); Potassium 3.8 mmol/L (3.5-5.1); Sodium 138 mmol/L (136-145); Total Protein 6.5 g/dL (6.4-8.2)
[2021-08-21] MEDS: Labetalol 100 MG TAB 200 MG PO ×2 (08:18→20:12)
[2021-08-21] MEDS: Prenatal Multivitamin w/CA,FE TAB 1 TAB PO (08:18)
--- NOTE | 2021-08-21 08:42 | W.PM.OBPNV1 ---
Date of service: 08/21/21 Time of Service: 08:42 Assessment and Plan Assessment and plan (1) Pre-eclampsia in period: Status: Acute Assessment and plan: Patient is now off of her second 24-hour round of magnesium sulfate. Blood pressures remained stable. She is currently on labetalol with additional Procardia which was started last night. At this point she has no somatic complaints or concerns. Headache has improved. Urine output has been brisk. Laboratory studies have been nearly normalized. Today's plan will be to increase her slowly. Continue her oral antihypertensives and monitor blood pressures closely. If she remained stable throughout the course of the next 24 hours, discharge home tomorrow would be likely. (2) Lactating mother: Status: Acute Assessment and plan: Continue support Subjective Subjective Interval history: Patient seen and examined this morning and doing well. She has now on labetalol twice daily along with additional 30 milligrams of Procardia. Blood pressures have remained stable throughout the night. Her urine output is appropriate. Laboratory studies are normalizing. She has no headaches or somatic complaints. She is breast-feeding without difficulty. [place] baby status: Doing well, Nursing well, Rooming in and Strong [place]ing Observed feeding status: Exclusively breast feeding Exam Physical Exam Vital signs: Temp Pulse Resp BP Pulse Ox 98.3 F 77 18 107/66 99 08/21/21 00:15 08/21/21 05:32 08/20/21 23:32 08/21/21 05:32 08/21/21 02:48 Constitutional Constitutional: no acute distress HEENT Exam HEENT Exam: Normal Neck Exam Neck Exam: Normal Respiratory Exam Respiratory Exam: Normal Cardiovascular Exam Cardiovascular Exam: Normal Abdominal Exam Comments: Soft, nontender Extremities Exam Extremity Exam: Normal; negative Calf Tenderness and Edema Skin Exam Skin Exam: Normal Detailed Neurological Exam Neurological: Present alert, oriented X3 and normal reflexes; Absent motor deficit DetailedPsychiatric Exam Psych Exam: Normal Affect, Normal Thougth Process, Cooperative, Good Insight and Good Judgement Results Hemoglobin/Hematocrit: Hgb 12.4 g/dL (11.2-15.7) 08/20/21 12:20 Hct 38.1 % (36.0-46.0) 08/20/21 12:20 Abnormal Lab Findings: Abnormal Labs 08/20/21 08/20/21 08/20/21 02:23 02:23 04:15 RBC 3.89 L MCV 98.7 H MCHC 31.5 L Glucose 107 H Calcium Magnesium AST 55 H ALT 113 H Alkaline Phosphatase 129 H Albumin 3.1 L Urine Blood Large H Ur Leukocyte Esterase Trace H Urine RBC 10-20 H 08/20/21 08/20/21 08/20/21 06:14 12:20 12:20 RBC MCV 96.7 H MCHC Glucose Calcium Magnesium 4.4 H* 4.5 H* AST 49 H ALT 103 H Alkaline Phosphatase 120 H Albumin 3.1 L Urine Blood Ur Leukocyte Esterase Urine RBC 08/20/21 08/21/21 08/21/21 18:03 00:15 06:00 RBC MCV MCHC Glucose Calcium 7.6 L Magnesium 4.6 H* 4.5 H* AST 41 H ALT 83 H Alkaline Phosphatase 122 H Albumin 2.9 L Urine Blood Ur Leukocyte Esterase Urine RBC
--- NOTE | 2021-08-21 15:20 | NUR.NOTE ---
pt reported she took the hat out of the toilet at some point today. RN provided education as to why monitoring pts urine output very closely is important, pt verbalized understanding, all questions/concerns addressed and answered. Hat placed back in toilet. Nursing Note:
[2021-08-21] MEDS: NIFEdipine-CR 30 MG TABCR PO (20:12)
[2021-08-22 01:53] VITALS: BP 115/77; PULSE 65; RESP 18; TEMP 36.7; O2SAT 98
[2021-08-22 05:29] VITALS: BP 125/84; PULSE 68; RESP 18; TEMP 36.8; O2SAT 97
[2021-08-22 08:00] VITALS: BP 120/83; PULSE 74; RESP 14; TEMP 36.6; O2SAT 98
[2021-08-22] MEDS: Labetalol 100 MG TAB 200 MG PO (08:05)
[2021-08-22] MEDS: Prenatal Multivitamin w/CA,FE TAB 1 TAB PO (08:05)
[2021-08-22 10:35] VITALS: BP 116/77; PULSE 74
--- NOTE | 2021-08-22 11:16 | DSE_ITS ---
Date of service: 08/22/21 Time of Service: 11:17 DS: Diagnosis Discharge Diagnosis (1) Pre-eclampsia in period: Status: Acute (2) Lactating mother: (3) Elevated liver function tests: Status: Inactive (4) care following vaginal delivery: Status: Inactive Discharge Plan Disposition Patient Disposition: HOME Condition: Stable Discharge Details Reason For Visit: preeclampsia Admit Date/Time: 08/20/21 03:33 Admit Provider: Brittany Sidhu Attending Provider: Brittany Sidhu Primary Care Provider: Fran Loya Hospital Course Hospital Course: Patient is a 30 y/o , 1 week with a complicated by pre-eclampsia with severe features and HELLP syndrome. She as induced for elevated blood pressure, had a and subsequently developed HELLP syndrome with BP in the severe range. She had magnesium sulfate for seizure prophylaxis for 24 hours and with stabilization of BP on PO Labetalol, and labs approaching normal. She was D/C'd to home post day #4 on 08/15/21 with close follow up. 07/2721 at [facility] BP 130/80. With home monitoring of blood pressure twice daily 08/20/21 Called with elevated BP and headache. ED evaluation. BP was 169/95 and near complete resolution of headache after 1000mg of Tylenol. Labs PLT 308, and mild elevation of ALT at 113, down from a peak of 173, and slight repeat increase of alk phos. Patient was admitted treated with repeat course of magnesium sulfate for 24 hours and had Procardia CR 30 mg daily added to her medication regime. Her blood pressure normalized and her LFTs continue to trend downward. Platelet count was normal throughout her hospital course. She will be discharged to home with the parameters as to when to call for symptomatic hypertension or hypotension. Plan is to have her follow-up in the office on 08/26/2021. Patient will be contacted on 08/25/2021 with an appointment time. Home Meds and New Rx's Prescriptions: Continued albuterol sulfate [ProAir HFA] 90 mcg/actuation HFA aerosol inhaler 1 - 2 puff Inhalation Q4H PRN Qty: 18 8RF Rx Instructions: may dispense two inhalers at a time Classic 28 mg iron- 800 mcg tablet 1 tab PO DAILY ibuprofen 800 mg tablet 800 mg PO Q8H PRNQty: 30 0RF No Action Mirena 20 mcg/24 hours (7 yrs) 52 mg intrauterine device 1 insert intrauterine ONCE Rx Instructions: as a single dose Discharge Instructions Additional Instructions: Directions for home blood pressure monitoring: Call the on-call provider at [phone] if your systolic blood pressure is over 165 or below 90, or your diastolic blood pressure is greater than 95 or lower than 40. If you do not hear from the office by late Wednesday morning 08/25/2021 then call the office to make a follow-up appointment for 08/26/2021. Activity:: Activity as Tolerated Equipment/Supplies:: No Equipment Needed Diet:: As Tolerated Discharge Orders Discharge Orders: Discharge Order (Routine); Ordered 08/22/21 Ordered By: Kitty Graham Discharge Data Discharge Date/Time-TO BE ENTERED AT DEPARTURE: 08/22/21 11:45 DS: Summary Time Spent with Patient providing and/or coordinating discharge services: Less than 30 minutes Status at Discharge Functional status at discharge: independent ambulation Overall status at discharge: patient is progressing back to baseline Mental Status: mental status grossly normal Speech and Movement: speech and movement normal Mood: congruent mood Affect: normal affect Exam Narrative Exam Narrative: Hospital day 3. Magnesium sulfate discontinued hospital day 2 and Procardia CR 30 mg initiated hospital day 2. Patient's blood pressure has normalized and she has had no evidence of headache. Her labs have trended towards normal. Const General: no acute distress Nutritional Appearance: average body habitus Orientation: alert, awake and oriented x3 Resp Effort & Inspection: normal respiratory effort GI Inspection: normal to inspection Palpation: soft, no hepatosplenomegaly, mass (involuting uterus) and nontender General: deferred Skin General skin exam: no rashes or lesions noted Extrem General: normal to inspection Psych Mental Status: mental status grossly normal Speech and Movement: speech and movement normal Mood: congruent mood Affect: normal affect DS: Data Vitals/I&O Vitals and I&O: Vital Signs Temperature 97.9 F 08/22/21 08:00 Temperature Source Skin 08/20/21 02:18 Pulse 74 08/22/21 10:35 Pulse Rhythm Regular 08/22/21 08:00 Pulse 88 08/20/21 04:01 Respiratory Rate 14 08/22/21 08:00 Respiratory Effort Non-Labored 08/20/21 02:25 Respiratory Depth Normal 08/21/21 19:16 Blood Pressure 116/77 08/22/21 10:35 Blood Pressure Mean 90 08/22/21 10:35 Pulse Oximetry 98 08/22/21 08:00 Pain Level 0 08/22/21 08:00 Comment 08/20/21 15:42 Intake & Output 08/21/21 08/21/21 08/22/21 11:59 23:59 11:59 Intake Total 2550.833 / 3050.833 500 / 3050.833 550 / 550 Output Total 2700 / 3450 750 / 3450 1400 / 1400 Balance -149.167 / -399.167 -250 / -399.167 -850 / -850 Intake: IV 1750.833 / 1750.833 Oral 800 / 1300 500 / 1300 550 / 550 Output: Urine 2700 / 3450 750 / 3450 1400 / 1400 PFSH All Active Problems (Updated 10/08/21 @ 11:47 by Earnestine Young CNM) Encounter for IUD insertion (Acute) care and examination (Acute) Pre-eclampsia in period (Acute) Medical History Acne (~10/05/08) Asthma (~01/14/10) Enlarged thyroid History of frequent headaches non-migrainus in nature History of hemolysis, elevated liver enzymes, and low platelet (HELLP) syndrome developed with 39wk delivery and recurrent post- Jul 2021 Lactating mother Lead exposure Leaking of urine Low TSH level Family History Sister No problems noted. Sister No problems noted. Brother No problems noted. Brother No problems noted. Maternal Grandfather , 84 Hyperlipidemia Paternal Grandfather , 69 Alcohol abuse Maternal Grandmother , 83 High cholesterol Macular degeneration Paternal Grandmother , 84 High cholesterol Social History Smokeless tobacco user: chewing tobacco Smoking risk assessment performed?: No Alcohol Intake: never Drug use: Never Substance use type: does not use Caregiver/Support person: Yes Household members: spouse Housing: house Communication Needs: None and Corrective Lenses Do you need help understanding health information?: Never Pets and animals: Yes Pets and animals: dog(s) Sexually active: Yes Do you think of yourself as: straight/heterosexual Current gender identity: female What is your relationship status?: How often do you talk on the phone with friends or family?: three or more times per week How often do you get together with friends or relatives?: three or more times per week How often do you attend yazidism or anglican services?: 1-3 times per year Do you belong to any clubs or organized social groups?: yes Panel score (0-1 are the most socially isolated patients): 3 What type of physical activity do you participate in: walking, bicycling, running and yoga Duration: 30-45 minutes/day Frequency: daily Ashli/Episcopal: Taoism Special ashli needs: No Seatbelt use: always Helmet use: Yes Helmet use: always Drive intox or ride w/intox truck driver heavy: No History History 1 Para 1 Hx # Term Pregnancies 1 Multiple births 0 Hx # Pregnancies 0 Ectopic pregnancies 0 AB induced 0 Hx Number of Living Children 1 AB spontaneous 0 Past Pregnancies Del. Date GA/Weeks # Outcome Route Wgt Sex Labor Lgth Anesthes ia Location Prov Complic 08/12/21 38 No Successful vaginal 6 lb 4.7 oz Female MAYDA Gray other Delivery Date: 08/12/21 Last Updated by: Brittany Mckeon LPN HELLP Syndrome.
== END 2021-08-22 11:45 | disposition home or self-care (01) ==
LOC: ER 03:57 → OBS 04:04
PROVIDERS: Obstetrics & Gynecology Gynecology; Admitting Provider Obstetrics & Gynecology; Emergency Provider Physician Assistant; PCP Emergency Medicine; Visit Provider Obstetrics & Gynecology
DX: O14.95 Unspecified pre-eclampsia, complicating the puerperium (principal); J45.909 Unspecified asthma, uncomplicated; E04.9 Nontoxic goiter, unspecified; R79.89 Other specified abnormal findings of blood chemistry
CPT/HCPCS: 36415; 80053; 87635; 96365; 96366; 96374; 99285; 81003; 81015; 83735; 85025; 87086; J3475

== ENCOUNTER 2022-08-27 03:07 | Outpatient (CLI) | payer OTHER, SELFPAY ==
[2022-08-27 12:14] LABS: Abs Immature Grans 0.02 10^3/uL (0.0-0.06); Absolute Basophil Count 0.11 10^3/uL (0.0-0.2); Absolute Eosinophil Count 0.43 10^3/uL (0.0-0.7); Absolute Lymphocyte Count 2.11 10^3/uL (1.2-3.4); Absolute Monocyte Count 0.46 10^3/uL (0.1-0.8); Absolute Neutrophil Count 4.66 10^3/uL (1.2-6.7); Basophils % 1.4; Eosinophils % 5.5; HCT 39.3 % (36.0-46.0); Immature Grans % 0.3; Lymphocytes % 27.1; MCH 30.9 pg (27.0-33.0); MCHC 33.1 % (32.0-36.0); MCV 93 fL (80-95); MPV 10.2 fL (8.0-11.0); Monocytes % 5.9; Neutrophils % 59.8; Platelet Count 287 10^3/uL (130-400); RBC 4.21 10^6/uL (3.93-5.22); RDW 11.6 % (11.7-14.6); RDW-SD 39.6 fL; WBC 7.79 10^3/uL (4.4-10.8)
[2022-08-27 12:31] LABS: ALT 26 U/L (14-59); AST 29 U/L (15-37); Albumin 4.2 g/dL (3.4-5.0); Alkaline Phosphatase 94 U/L (46-116); Anion Gap 8.6 mmol/L (3-11); BUN 18 mg/dL (7-18); Bilirubin, Total 0.7 mg/dL (0.2-1.0); CO2 28.4 mmol/L (21.0-32.0); CREATININE 0.9 mg/dL (0.55-1.02); Calcium 9.3 mg/dL (8.5-10.1); Chloride 100 mmol/L (98-107); Estimated GFR 87.65 (mL/min/1.73m2); Glucose 95 mg/dL (74-106); Potassium 3.7 mmol/L (3.5-5.1); Sodium 137 mmol/L (136-145); Total Protein 7.8 g/dL (6.4-8.2)
== END 2022-08-27 03:08 | disposition home or self-care (01) ==
LOC: LOS 03:07
PROVIDERS: PCP Family Medicine; Visit Provider Family Medicine
DX: O14.95 Unspecified pre-eclampsia, complicating the puerperium (principal); Z00.00 Encounter for general adult medical examination without abnormal findings; E03.9 Hypothyroidism, unspecified; Z77.011 Contact with and (suspected) exposure to lead
CPT/HCPCS: 36415; 80053; 83655; 84443; 85025

== ENCOUNTER 2023-03-08 04:25 | Outpatient (CLI) | payer OTHER, SELFPAY ==
[2023-03-08 16:05] LABS: Panorama Kit Sent via Fed Ex
[2023-03-08 16:10] LABS: Abs Immature Grans 0.03 10^3/uL (0.0-0.06); Absolute Basophil Count 0.09 10^3/uL (0.0-0.2); Absolute Eosinophil Count 0.48 10^3/uL (0.0-0.7); Absolute Lymphocyte Count 2.25 10^3/uL (1.2-3.4); Absolute Monocyte Count 0.39 10^3/uL (0.1-0.8); Absolute Neutrophil Count 6.65 10^3/uL (1.2-6.7); Basophils % 0.9; Eosinophils % 4.9; HCT 37.3 % (36.0-46.0); HGB 12.6 g/dL (11.2-15.7); Immature Grans % 0.3; Lymphocytes % 22.8; MCH 30.9 pg (27.0-33.0); MCHC 33.8 % (32.0-36.0); MCV 91 fL (80-95); MPV 9.8 fL (8.0-11.0); Monocytes % 3.9; Neutrophils % 67.2; Platelet Count 305 10^3/uL (130-400); RBC 4.08 10^6/uL (3.93-5.22); RDW 11.6 % (11.7-14.6); RDW-SD 38.5 fL; WBC 9.89 10^3/uL (4.4-10.8)
[2023-03-08 16:25] LABS: Lab Add On Test DONE
[2023-03-08 17:11] LABS: ALT 22 U/L (14-59); AST 22 U/L (15-37); Albumin 3.7 g/dL (3.4-5.0); Alkaline Phosphatase 77 U/L (46-116); Anion Gap 10.9 mmol/L (3-11); BUN 13 mg/dL (7-18); Bilirubin, Total 0.2 mg/dL (0.2-1.0); CO2 27.1 mmol/L (21.0-32.0); CREATININE 0.7 mg/dL (0.55-1.02); Calcium 8.9 mg/dL (8.5-10.1); Chloride 101 mmol/L (98-107); Estimated GFR 117.77 (mL/min/1.73m2); Glucose 80 mg/dL (74-106); Potassium 3.8 mmol/L (3.5-5.1); Sodium 139 mmol/L (136-145); Total Protein 6.9 g/dL (6.4-8.2)
[2023-03-08 17:34] LABS: Vitamin D 25 Total 24.1 ng/mL (30-100)
[2023-03-08 20:19] LABS: Creatinine,Urine 59.79 mg/dL
[2023-03-08 20:37] LABS: Creatinine,24hr Ur 0.96 g/24hr (0.60-1.80); PROTEIN < 6.0 mg/dL (0.0-11.9); Total Volume 1600 ml
[2023-03-10 10:42] LABS: Hepatitis B Surface Ag Negative (Negative)
[2023-03-10 11:22] LABS: Hepatitis C Ab w Rflx HCV PCR Negative (Negative)
[2023-03-10 11:56] LABS: Rubella IgG Ab (UVM) Positive (See Note); Varicella IgG Antibody Positive (See Note)
[2023-03-10 13:17] LABS: HIV-1/2 Ag & Ab Screen Negative (Negative)
[2023-03-11 16:25] LABS: Syphilis IgG w/Reflex Nonreactive (Nonreactive)
== END 2023-03-08 04:26 | disposition home or self-care (01) ==
LOC: LBO 04:25 → LBN 18:00
PROVIDERS: Advanced Practice Midwife; Obstetrics & Gynecology Gynecology; PCP Family Medicine; Visit Provider Obstetrics & Gynecology
DX: Z34.91 Encounter for supervision of normal pregnancy, unspecified, first trimester (principal); Z3A.00 Weeks of gestation of pregnancy not specified
CPT/HCPCS: 80053; 82306; 86787; 86803; 86850; 86900; 86901; 87340; 87389; 81050; 82570; 84155; 85025; 86762; 86780

== ENCOUNTER 2023-03-17 09:07 | Outpatient (REF) | payer OTHER, SELFPAY ==
--- NOTE | 2023-03-17 10:00 | PAPFT_PTH ---
PATIENT: Renetta Fermin LOC: [facility] U#:[id number] AGE/SX: 32/F ROOM: RE03/17/[address]: Earnestine Young : 1990 BED: DIS: 03/17/2023 SPEC #: [id number] RECD: 03/17/23 12:54 STATUS: ISSAC REQ #: [id number] ELISABET: 03/17/23 10:[address]: Earnestine Young DEPT: [facility], [facility] Cytology RECD BY: María Plummer ENTERED: 03/17/23 12:54 SP TYPE: PAPFT OTHR DR: Tita Polanco Tissues: 1 - CX/ENDOCX FOR PAP SMEARS Procedures: PAP THIN PREP/UVM Screening HPV DNA PROBE Comments: [id number]
[2023-03-17 10:24] LABS: *AMPHETAMINES SCREEN URINE Negative (Negative); *BARBITURATES SCREEN URINE Negative (Negative); *BENZODIAZEPINES SCREEN URINE Negative (Negative); Cannabinoids THC Negative (Negative); Cocaine Screen,Urine Negative (Negative); METHADONE URINE SCREEN Negative (Negative); OPIATES URINE SCREEN Negative (Negative)
[2023-03-17 10:25] LABS: Tricyclic Antidepressants Negative (Negative)
[2023-03-18 13:49] LABS: Chlamydia Result Negative (Negative); GC Result Negative (Negative)
[2023-03-22 11:06] LABS: Buprenorphine Negative ng/mL (Cutoff: 5.0); Norbuprenorphine Negative ng/mL (Cutoff: 2.5)
== END 2023-03-17 09:08 | disposition home or self-care (01) ==
LOC: LBN 09:07
PROVIDERS: PCP Family Medicine; Visit Provider Advanced Practice Midwife
DX: O09.91 Supervision of high risk pregnancy, unspecified, first trimester (principal); Z12.4 Encounter for screening for malignant neoplasm of cervix
CPT/HCPCS: 80307; 80348; 87491; 87591; 88142; 87086; 87624

== ENCOUNTER 2023-04-27 09:04 | Emergency (ER) | payer OTHER, SELFPAY ==
[2023-04-27 09:07] VITALS: BP 101/61; PULSE 75; RESP 16; TEMP 37.2; O2SAT 99
--- NOTE | 2023-04-27 09:30 | DI.RAD_ITS ---
Exam(s) XR ANKLE RT COMPLETE EXAM: XR ANKLE RT COMPLETE CLINICAL HISTORY: inversion injury, swelling lat malleolus. TECHNIQUE: 2D digital imaging was performed. COMPARISON: No exams were available for comparison FINDINGS: 3 views There is lateral soft tissue swelling but no evidence of acute fracture nor dislocation. No widening of the ankle mortise. Talar dome unremarkable. Bone density normal. No osseous tarsal coalition. IMPRESSION: Lateral soft tissue swelling. No obvious fractures. DATA REPOSITORY: RADIATION DOSE DELIVERED:
--- NOTE | 2023-04-28 20:18 | ED.GENADUL_ITS ---
Discharge Plan Disposition Patient Disposition: Home Discharge Details Clinical Impression: Sprain Primary Care Provider: Tita Polanco ED Provider: María Mckeon Home Meds and New Rx's Prescriptions: Continued albuterol sulfate [ProAir HFA] 90 mcg/actuation HFA aerosol inhaler 1 - 2 puff Inhalation Q4H PRN Qty: 18 8RF Rx Instructions: may dispense two inhalers at a time cholecalciferol (vitamin D3) 125 mcg (5,000 unit) capsule 125 mcg PO DAILY Classic 28 mg iron- 800 mcg tablet 1 tab PO DAILY aspirin 81 mg tablet,delayed release (DR/EC) 81 mg PO DAILY Qty: 90 3RF budesonide-formoterol [Symbicort] 80-4.5 mcg/actuation HFA aerosol inhaler 2 puff inhalation QID Qty: 10.2 6RF Discharge Instructions Additional Instructions: You have a sprain to your right ankle with a possible small avulsion, wear the boot during the day, you may take Tylenol as needed for discomfort, 500 mg You may apply ice topically as needed and elevate when seated Please follow-up with orthopedics for to schedule an appointment for reassessment and return earlier should you have new or worsening complaints Stand Alone Forms: Work Release Referrals: Jin Joya MD [ [facility] STAFF PHYSICIAN] - Discharge Data Discharge Date/Time-TO BE ENTERED AT DEPARTURE: 04/27/23 10:39 Medical Decision Making 32-year-old female presenting with right ankle pain, 20 weeks , denies any abdominal pain or vaginal bleeding Right ankle with lateral malleolus swelling, no tenderness to right knee Placed in a boot secondary to slightly since he had a lateral view of patient's ankle x-ray, suspect sprain with tendon avulsion We will apply ice, take Tylenol, and return should she have new or worsening complaints HPI General Date/Time Provider Initiated Documentation: 04/27/23 09:24 . HPI Narrative: 32-year-old female presents with report of missing step twisting her right ankle. Denies any additional injury. Approximately 20 weeks per patient. Denies any abdominal pain or vaginal bleeding. Related Data Home Medications Medication Instructions Recorded Confirmed vits no.126-ferrous fum 1 tab PO DAILY 01/14/21 04/27/23 28 mg iron-folic acid 800 mcg tablet (Classic ) albuterol sulfate 90 mcg/actuation 1 - 2 puff inhalation Q4H PRN #18 06/10/21 04/27/23 aerosol inhaler (ProAir HFA) grams aspirin 81 mg tablet,delayed 81 mg PO DAILY #90 tabs 03/02/23 04/27/23 release cholecalciferol (vitamin D3) 125 125 mcg PO DAILY 04/15/23 04/27/23 mcg (5,000 unit) capsule budesonide-formoterol HFA 80 2 puff inhalation QID #10.2 grams 04/22/23 04/27/23 mcg-4.5 mcg/actuation aerosol inhaler (Symbicort) Previous Rx's Medication Instructions Recorded albuterol sulfate 90 mcg/actuation 1 - 2 puff inhalation Q4H PRN #18 06/10/21 aerosol inhaler (ProAir HFA) grams aspirin 81 mg tablet,delayed 81 mg PO DAILY #90 tabs 03/02/23 release budesonide-formoterol HFA 80 2 puff inhalation QID #10.2 grams 04/22/23 mcg-4.5 mcg/actuation aerosol inhaler (Symbicort) Allergies Allergy/AdvReac Type Severity Reaction Status Date / Time cat dander Allergy Unknown Verified 04/27/23 09:12 horse dander Allergy Unknown Verified 04/27/23 09:12 house dust Allergy Unknown Verified 04/27/23 09:12 pollen extracts Allergy Unknown Verified 04/27/23 09:12 mold Allergy Unknown Uncoded 04/27/23 09:12 General Stated Complaint: Orthopedic YAHAIRA: 4 PFSH All Active Problems (Updated 04/27/23 @ 10:35 by DARIEL Toro) Sprain (Acute) Multiple environmental allergies (Acute) (Acute) Asthma (Chronic ~01/14/10) Seasonal and exercise induced; mild intermittent. Enlarged thyroid (Acute) Cervical polyp (Acute) History of pre-eclampsia (Acute) Managed with Labetalol and Nifedipine 8-9wks pp HRP (high risk ) (Acute) Situational anxiety (Acute) Adjustment disorder (Chronic) Medical History (Updated 04/27/23 @ 10:35 by DARIEL Toro) Acne (~10/05/08) History of abnormal cervical Pap smear positive high risk HPV History of frequent headaches non-migrainus in nature Hx of lead exposure Lead exposure Leaking of urine Low TSH level Family History Sister No problems noted. Sister No problems noted. Brother No problems noted. Brother No problems noted. Maternal Grandfather , 84 Hyperlipidemia Paternal Grandfather , 69 Alcohol abuse Maternal Grandmother , 83 High cholesterol Macular degeneration Dementia Paternal Grandmother , 84 High cholesterol Mother No problems noted. Father No problems noted. Social History Smoking/Tobacco Use Status: Never Smoking risk assessment performed?: Yes Alcohol Intake: current Alcohol Intake frequency: a few times a month Alcohol type: wine Drug use: Never Substance use type: does not use Caregiver/Support person: No Household members: spouse and children Housing: house Number of Children: 1 Communication Needs: None and Corrective Lenses Education Level: college Details: BA [employer] and Environmental Studies Do you need help understanding health information?: Never current occupation: Substitute Teaching; teaches [employer] Pets and animals: Yes Pets and animals: dog(s) and other Details: Chickens Sexually active: Yes Do you think of yourself as: straight/heterosexual Current gender identity: female What is your relationship status?: How often do you talk on the phone with friends or family?: three or more times per week How often do you get together with friends or relatives?: three or more times per week How often do you attend mandaeism or moravian services?: decline to answer Do you belong to any clubs or organized social groups?: yes Panel score (0-1 are the most socially isolated patients): 3 What type of physical activity do you participate in: walking, bicycling, other Details: Hiking and yoga Duration: 45-60 minutes/day Frequency: 5-6 times per week Ashli/Spiritism: No preference Special aslhi needs: No Seatbelt use: always Helmet use: Yes Helmet use: always Drive intox or ride w/intox hydraulic lift driver: No History History 2 Para 1 Hx # Term Pregnancies 1 Multiple births 0 Hx # Pregnancies 0 Ectopic pregnancies 0 AB induced 0 Hx Number of Living Children 1 AB spontaneous 0 Past Pregnancies Del. Date GA/Weeks # Preg Succ Route Wgt Sex Labor Lgth Anesth esia Location Prov Complic 08/12/21 38 No Yes vaginal 2854.797 g Female Lalit tracey CNM other Delivery Date: 08/12/21 Last Updated by: Earnestine Young CNM HELLP Syndrome. IOL with cervidil. Trisha Course Vital Signs Vital signs: Vital Signs Temperature 37.2 C 04/27/23 09:07 Pulse 75 04/27/23 09:07 Respiratory Rate 16 04/27/23 09:07 Blood Pressure 101/61 04/27/23 09:07 Pulse Oximetry 99 04/27/23 09:07 Temperature 37.2 C 04/27/23 09:07 Temperature Source Temporal Artery Scan 04/27/23 09:07 Pulse 75 04/27/23 09:07 Respiratory Rate 16 04/27/23 09:07 Respiratory Effort Normal 04/27/23 09:10 Blood Pressure 101/61 04/27/23 09:07 Blood Pressure Position Sitting 04/27/23 09:07 Pulse Oximetry 99 04/27/23 09:07 Oxygen Delivery Method Room Air 04/27/23 09:07 Oxygen Flow Rate 0 04/27/23 09:07 Pain Level 4 04/27/23 09:10
--- NOTE | 2023-05-03 07:19 | NUR.NOTE ---
Nursing Note: Accesed pt chart to determine which extremity for [facility].
== END 2023-04-27 10:39 | disposition home or self-care (01) ==
PROVIDERS: Emergency Provider Physician Assistant; PCP Family Medicine
DX: S93.401A Sprain of unspecified ligament of right ankle, initial encounter (principal); X58.XXXA Exposure to other specified factors, initial encounter
CPT/HCPCS: 99283; 73610

== ENCOUNTER 2023-06-21 03:10 | Outpatient (CLI) | payer OTHER, SELFPAY ==
[2023-06-21 11:00] LABS: HCT 34.4 % (36.0-46.0); HGB 11.4 g/dL (11.2-15.7); MCH 31.7 pg (27.0-33.0); MCHC 33.1 % (32.0-36.0); MCV 96 fL (80-95); MPV 9.6 fL (8.0-11.0); Platelet Count 207 10^3/uL (130-400); RDW 11.8 % (11.7-14.6); RDW-SD 41.1 fL; WBC 9.57 10^3/uL (4.4-10.8)
[2023-06-21 11:11] LABS: Glucose,1 Hr (Glucola) 146 mg/dL (80-140)
[2023-06-21 11:27] LABS: ALT 22 U/L (14-59); AST 31 U/L (15-37); Albumin 2.7 g/dL (3.4-5.0); Alkaline Phosphatase 78 U/L (46-116); Anion Gap 7.8 mmol/L (3-11); BUN 7 mg/dL (7-18); Bilirubin, Total 0.1 mg/dL (0.2-1.0); CO2 27.2 mmol/L (21.0-32.0); CREATININE 0.6 mg/dL (0.55-1.02); Calcium 8.5 mg/dL (8.5-10.1); Chloride 102 mmol/L (98-107); Estimated GFR 122.23 (mL/min/1.73m2); Glucose 147 mg/dL (74-106); Potassium 3.6 mmol/L (3.5-5.1); Sodium 137 mmol/L (136-145); TSH (W/Ref FT4) 1.22 uIU/mL (0.36-3.74); Total Protein 6.3 g/dL (6.4-8.2)
== END 2023-06-21 03:11 | disposition home or self-care (01) ==
LOC: LBO 03:10
PROVIDERS: PCP Family Medicine; Visit Provider Advanced Practice Midwife
DX: Z87.59 Personal history of other complications of pregnancy, childbirth and the puerperium; E04.9 Nontoxic goiter, unspecified; O99.283 Endocrine, nutritional and metabolic diseases complicating pregnancy, third trimester; Z3A.27 27 weeks gestation of pregnancy
CPT/HCPCS: 36415; 80053; 82950; 85027; 84443

== ENCOUNTER 2023-07-08 04:41 | Outpatient (CLI) | payer OTHER, SELFPAY ==
[2023-07-08 09:10] LABS: Glucose 1 Hour 133 mg/dL
[2023-07-08 11:36] LABS: Glucose 3 Hour 54 mg/dL
== END 2023-07-08 04:42 | disposition home or self-care (01) ==
LOC: LBO 04:41
PROVIDERS: Advanced Practice Midwife; PCP Family Medicine; Visit Provider Advanced Practice Midwife
DX: Z34.93 Encounter for supervision of normal pregnancy, unspecified, third trimester (principal)
CPT/HCPCS: 36415; 82951

== ENCOUNTER 2023-08-20 03:20 | Outpatient (CLI) | payer OTHER, SELFPAY ==
[2023-08-20 09:36] LABS: HCT 33.6 % (36.0-46.0); HGB 11.2 g/dL (11.2-15.7); MCH 30.5 pg (27.0-33.0); MCHC 33.3 % (32.0-36.0); MCV 92 fL (80-95); MPV 9.4 fL (8.0-11.0); Platelet Count 224 10^3/uL (130-400); RBC 3.67 10^6/uL (3.93-5.22); RDW 11.7 % (11.7-14.6); RDW-SD 39.4 fL; WBC 10.38 10^3/uL (4.4-10.8)
[2023-08-20 09:49] LABS: ALT 24 U/L (14-59); AST 32 U/L (15-37); Albumin 2.6 g/dL (3.4-5.0); Alkaline Phosphatase 115 U/L (46-116); Anion Gap 7.7 mmol/L (3-11); BUN 6 mg/dL (7-18); Bilirubin, Total 0.4 mg/dL (0.2-1.0); CO2 27.3 mmol/L (21.0-32.0); CREATININE 0.7 mg/dL (0.55-1.02); Calcium 8.5 mg/dL (8.5-10.1); Chloride 104 mmol/L (98-107); Estimated GFR 117.77 (mL/min/1.73m2); Glucose 91 mg/dL (74-106); Potassium 3.6 mmol/L (3.5-5.1); Sodium 139 mmol/L (136-145); Total Protein 6.4 g/dL (6.4-8.2)
[2023-08-20 10:10] LABS: Vitamin D 25 Total 39.9 ng/mL (30-100)
== END 2023-08-20 03:21 | disposition home or self-care (01) ==
LOC: LBO 03:20
PROVIDERS: PCP Family Medicine; Visit Provider Advanced Practice Midwife
DX: Z87.59 Personal history of other complications of pregnancy, childbirth and the puerperium (principal)
CPT/HCPCS: 36415; 80053; 82306; 85027

== ENCOUNTER 2023-08-20 10:19 | Outpatient (REF) | payer OTHER, SELFPAY ==
[2023-08-20 11:35] LABS: *AMPHETAMINES SCREEN URINE Negative (Negative); *BARBITURATES SCREEN URINE Negative (Negative); *BENZODIAZEPINES SCREEN URINE Negative (Negative); Cannabinoids THC Negative (Negative); Cocaine Screen,Urine Negative (Negative); METHADONE URINE SCREEN Negative (Negative); OPIATES URINE SCREEN Negative (Negative); Tricyclic Antidepressants Negative (Negative)
[2023-08-28 13:22] LABS: Buprenorphine Negative ng/mL (Cutoff: 5.0); Norbuprenorphine Negative ng/mL (Cutoff: 2.5)
== END 2023-08-20 10:20 | disposition home or self-care (01) ==
LOC: LBN 10:19
PROVIDERS: PCP Family Medicine; Visit Provider Advanced Practice Midwife
DX: O26.893 Other specified pregnancy related conditions, third trimester (principal); N89.8 Other specified noninflammatory disorders of vagina; Z36.85 Encounter for antenatal screening for Streptococcus B; Z3A.36 36 weeks gestation of pregnancy
CPT/HCPCS: 80307; 80348; 87081; 87480; 87510; 87660

== ENCOUNTER 2023-09-16 14:27 | Inpatient (IN) | payer OTHER, SELFPAY ==
[2023-09-16] VITALS (10 sets, daily range): BP systolic 110–138; BP diastolic 68–79; PULSE 60–98; RESP 16–20; TEMP 36.6–36.8; O2SAT 98–99
[2023-09-16] MEDS: Lidocaine 1% Multi-Dose 20 ML VIAL IJ (16:00)
[2023-09-16] MEDS: Oxytocin 10 UNITS/ML VIAL IM (16:00)
[2023-09-16 17:01] LABS: HCT 34.6 % (36.0-46.0); HGB 11.9 g/dL (11.2-15.7); MCH 31.5 pg (27.0-33.0); MCHC 34.4 % (32.0-36.0); MCV 92 fL (80-95); MPV 10.3 fL (8.0-11.0); Platelet Count 201 10^3/uL (130-400); RBC 3.78 10^6/uL (3.93-5.22); RDW 12.9 % (11.7-14.6); RDW-SD 42.9 fL; WBC 20.23 10^3/uL (4.4-10.8)
[2023-09-16 17:20] LABS: ALT 23 U/L (14-59); AST 34 U/L (15-37); Albumin 2.6 g/dL (3.4-5.0); Alkaline Phosphatase 171 U/L (46-116); Anion Gap 11.2 mmol/L (3-11); BUN 10 mg/dL (7-18); Bilirubin, Total 0.2 mg/dL (0.2-1.0); CO2 22.8 mmol/L (21.0-32.0); CREATININE 0.9 mg/dL (0.55-1.02); Calcium 9.3 mg/dL (8.5-10.1); Chloride 102 mmol/L (98-107); Estimated GFR 87.11 (mL/min/1.73m2); Glucose 146 mg/dL (74-106); Potassium 3.4 mmol/L (3.5-5.1); Sodium 136 mmol/L (136-145); Total Protein 6.4 g/dL (6.4-8.2); Uric Acid 5.9 mg/dL (2.6-6.0)
[2023-09-16] MEDS: Ibuprofen 600 MG TAB PO (17:30)
--- NOTE | 2023-09-16 18:28 | HPE_ITS ---
Date of service: 09/16/23 Time of Service: 18:29 Assessment and Plan Assessment and plan (1) Spontaneous onset of labor: Status: Acute Assessment and plan: Admit to the center and anticipate . Dr Alexandre notified of her admission and risk factors including previous shoulder dystocia less than 1 minute. OB-HPI Labor/Delivery History of Present Illness Reason for Visit: labor Chief Complaint: Uterine Contractions; Suspected Rupture of Membranes , Associated Signs and Symptoms of Suspected ROM: contractions. JACEK Calculator Estimated Delivery Date Method WG Current Estimate 09/17/23 LMP (Certain) Other Estimates 09/21/23 Ultrasound #1 Delivery Date-Baby A 09/16/23 39w 6d Comments: Renetta called en route to the hospital and report strong contractions. She was experiencing an urge to push upon arrival. History of Present Expected Delivery Route/Plan -CNM FOB/ - Ferny Fermin (their second child) BG unmedicated , hopes to avoid IOL, has written a plan GBS negative Specific Issues/Plan 1. H/o PEC/HELLP syndrome prior -ASA at 12 wks. -baseline labs/urine protein, drawn 03/08/23, all WNL - repeated CMP @ 28 wks = nml 2. cfDNA results: low risk x5 female, CF/SMA previously screen negative, declines AFP 3. Vit D3 drawn 03/08, result 24=deficient, Dr. Sidhu advised supplementation of 5300 units per day. 4. URI in first trimester- Took prednisone and inhaler. At 17 wks, referred to pulmonology 5. Enlarged thyroid - thyroid cyst previously dx, TSH w/reflex T4 added 28 wks- TSH - 1.22 6. 1-hr GTT 146, 3 hr GTT -84, 133, 71, 54 PFSH All Active Problems (Updated 09/16/23 @ 18:34 by Earnestine Young CNM) Spontaneous onset of labor (Acute) Vaginal discharge during (Acute) Multiple environmental allergies (Acute) (Acute) Asthma (Chronic ~01/14/10) Seasonal and exercise induced; mild intermittent. Enlarged thyroid (Acute) Cervical polyp (Acute) History of pre-eclampsia (Acute) Managed with Labetalol and Nifedipine 8-9wks pp HRP (high risk ) (Acute) Situational anxiety (Acute) Adjustment disorder (Chronic) Medical History (Updated 09/16/23 @ 18:34 by Earnestine Young CNM) Hx of lead exposure History of abnormal cervical Pap smear positive high risk HPV Lead exposure Leaking of urine Low TSH level History of frequent headaches non-migrainus in nature Acne (~10/05/08) Family History Sister No problems noted. Sister No problems noted. Brother No problems noted. Brother No problems noted. Maternal Grandfather , 84 Hyperlipidemia Paternal Grandfather , 69 Alcohol abuse Maternal Grandmother , 83 High cholesterol Macular degeneration Dementia Paternal Grandmother , 84 High cholesterol Mother No problems noted. Father No problems noted. 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[employer] Pets and animals: Yes Pets and animals: dog(s) and other Details: Chickens Sexually active: Yes Do you think of yourself as: straight/heterosexual Current gender identity: female What is your relationship status?: How often do you talk on the phone with friends or family?: three or more times per week How often do you get together with friends or relatives?: three or more times per week How often do you attend sikh or hinduism services?: decline to answer Do you belong to any clubs or organized social groups?: yes Panel score (0-1 are the most socially isolated patients): 3 What type of physical activity do you participate in: walking, bicycling, other Details: Hiking and yoga Duration: 45-60 minutes/day Frequency: 5-6 times per week Ashli/Nondenominational: No preference Special ashli needs: No Seatbelt use: always Helmet use: Yes Helmet use: always Drive intox or ride w/intox otr tanker truck driver: No Do you feel safe at home: Yes Do you feel safe in your relationship?: Yes History History 2 Para 1 Hx # Term Pregnancies 1 Multiple births 0 Hx # Pregnancies 0 Ectopic pregnancies 0 AB induced 0 Hx Number of Living Children 1 AB spontaneous 0 Past Pregnancies Del. Date GA/Weeks # Preg Succ Route Wgt Sex Labor Lgth Anesth esia Location Prov Complic 08/12/21 38 No Yes vaginal 6 lb 4.7 oz Female Racheal Martinez CNM other Delivery Date: 08/12/21 Last Updated by: Earnestine Young CNM HELLP Syndrome. IOL with cervidil. Trisha Meds Allergies and Home Medications Allergies Allergy/AdvReac Type Severity Reaction Status Date / Time cat dander Allergy Unknown Verified 09/09/23 09:07 horse dander Allergy Unknown Verified 09/09/23 09:07 house dust Allergy Unknown Verified 09/09/23 09:07 pollen extracts Allergy Unknown Verified 09/09/23 09:07 mold Allergy Unknown Uncoded 09/09/23 09:07 Home Medications Medication Instructions Recorded Confirmed Type vits no.126-ferrous fum 1 tab PO DAILY 01/14/21 09/16/23 History 28 mg iron-folic acid 800 mcg tablet (Classic ) albuterol sulfate 90 mcg/actuation 1 - 2 puff inhalation Q4H PRN #18 06/10/21 09/16/23 Rx aerosol inhaler (ProAir HFA) grams aspirin 81 mg tablet,delayed 81 mg PO DAILY #90 tabs 03/02/23 09/16/23 Rx release cholecalciferol (vitamin D3) 125 125 mcg PO DAILY 04/15/23 09/16/23 History mcg (5,000 unit) capsule budesonide-formoterol HFA 80 2 puff inhalation QID #10.2 grams 04/22/23 09/16/23 Rx mcg-4.5 mcg/actuation aerosol inhaler (Symbicort) omega-3 fatty acids-fish oil 300 1 cap PO DAILY 06/15/23 09/16/23 History mg-500 mg capsule (Fish Oil) Exam Physical Exam Vital signs: Temp Pulse Resp BP Pulse Ox 98.1 F 84 16 119/78 99 09/16/23 17:30 09/16/23 17:30 09/16/23 17:30 09/16/23 17:30 09/16/23 17:30 Vital Signs Reviewed: Yes Constitutional Constitutional: moderate distress Detailed Labor and Delivery Exam Dilation: 9 Effacement (%): 100 station: +1 Cervix position: mid Jang Score: Cervical Points Exam 0 1 2 3 Dilation Closed 1-2cm 3-4 cm 5-6cm Effacement 0-30% 40-50% 60-70% 80% Consistency Firm Medium Soft Station -3 -2 -1,0 +1,+2 Position Posterior Mid Anterior Rupture Method: Spontaneous Amniotic Fluid: Clear Monitor Mode: External Contraction Frequency(min): every 3 minutes Contraction Duration(sec): 60 Contraction Intensity: Strong Fetus A Heart Rate Baseline: 130 Monitor Accelerations: 15 X 15 Monitor Decelerations: None Variability: Moderate (6-25 BPM) Presentation: Vertex Categories: Category III Date of Membrane Rupture: 09/16/23 Time of Membrane Rupture: 14:56 Respiratory Exam Respiratory Exam: Normal Cardiovascular Exam Cardiovascular Exam: Normal Exam Exam: Normal Extremities Exam Extremities Exam: Normal Skin Exam Skin Exam: Normal Psychiatric Exam Psychiatric Exam: Normal Results Results Group Beta Strep: Negative Blood Type: O+ Rubella Status: Immune Varicella Immunity: Immune Abnormal Lab Findings: Abnormal Labs 09/16/23 16:53 WBC 20.23 H RBC 3.78 L Hct 34.6 L Potassium 3.4 L Anion Gap 11.2 H Glucose 146 H Alkaline Phosphatase 171 H Albumin 2.6 L Risk Assessment Risk for Shoulder Dystocia Historical/Initial OB: NEGATIVE FOR: Pelvic Abnormality, Pre- BMI>30, Previous Shoulder Dystocia or Previous Macrosomia 40 Weeks: NEGATIVE FOR: EFW> 4500 gms, Maternal Weight Gain >40lb or Post Dates Delivery Plan @ 40 wks: Risk for Pre-Eclampsia Date Initiated/Initials: KJ 03/02/2023 Yes, if one or more: POSTIVE FOR: Hx Pre-E/Gest HTN; NEGATIVE FOR: Chronic HTN, Multiple Gestation, Pre-gestational DM, Renal Disease, Systemic Lupus or APA Syndrome Yes, if 2 or more: NEGATIVE FOR: Nulliparity, Age>= 35 yrs, >10yr btwn pregnancies, BMI>30, ethinicty, Mother/Sister w/ Pre-E or Previous IUGR Risk for Post- Hemorrhage Initial: NEGATIVE FOR: Multiple Gestation, Previous PPH, Known Clotting Deficiency, Grand Multiparity or Anticoagulation 40 Weeks: NEGATIVE FOR: Anemia, hgb<10, Low platelets (thrombocytopenia), Gestation HTN or Pre-E, Polyhydraminios or EFW>4500gms At Risk?: No Risks Reviewed Risks Reviewed Upon Admission: Yes
--- NOTE | 2023-09-16 18:36 | W.OBDELIVERY ---
Date of service: 09/16/23 Time of Service: 18:37 OB Labor/ Delivery Information Baby A Delivery Delivery Method: Spontaneaous Presentation: Cephalic Cephalic Position: Vertex Vertex Position: Left Occipital Anterior Cord Description-Baby A: 3 Vessels Amniotic Fluid: Clear Estimated Blood Loss: 300 Delivery Outcome: Liveborn Transferred: Remains with Mother Note: FHTs 130s during first stage of labor. FHTs 130s in second stage. Anterior rim upon admission. Progressed to full dilation and began pushing well on her hands and knees. Second stage huddle was done. Spontaneous delivery of female delivered in CHANG position. Posterior hand presenting with th ebaby's face. Delivered easily. Baby was placed on mother's abdomen and dried and stimulated. Spontaneous cry. Cord was clamped and cut by the baby's father. The placenta delivered spontaneously after 45 minutes and appears to by intact with a three vessel cord. Pitocin 10 units was administered prior to the delivery of the placenta. The perineum was inspected and a first degree laceration was repaired. The baby did breastfeed. After delivery, Mother and baby and father of the baby were stable and bonding well in the delivery room and there were no complications. Providers Nurse Coordinate Measuring Equipment Operator: Earnestine Young Nurse: Radha Coffey Nurse: Balwinder Gunn Labor/Delivery Information Number of Babies in Womb: 1 Steroids Given: None Reason Steroids Not Administered: N/A Group Beta Strep: Negative Antibiotics Administered: No Rubella Status: Immune Blood Type: O+ Varicella Immunity: Immune Maternal Complications: None Shoulder Dystocia: No Stages of Labor Onset of Labor Date: 09/16/23 Onset of Labor Time: 13:00 Complete Dilatation Date: 09/16/23 Complete Dilatation Time: 14:56 Labor - Stage 1 Duration: 1 hours and 56 minutes ROM Baby A: 09/16/23 ROM Baby A: 14:56 ROM Total Time- Baby A: [id number] Delivery Date-Baby A: 09/16/23 Delivery Time-Baby A: 15:57 Labor Stage 2 Duration: 1 hours and 1 minutes Placenta Delivery Date-Baby A: 09/16/23 Placenta Delivery Time-Baby A: 16:36 Labor-Stage 3 Duration: 39 minutes Total Length of Labor-Baby A: 2 hours and 57 minutes Placenta Cultured: No Placenta Status: Delivered Baby A Gender: Female Gestational Status: Term (39-41.6 wks) Gestational Age in Weeks/Days: 39 Weeks and 6 Days weight: 7 lb 4.757 oz Length-Baby A: 19 in Head Circumference-Baby A: 14 in Score-1 Minute Interval(Baby A) Heart Rate-1 minute: 100 BPM or Greater Respiratory Effort- 1 minute: Spontaneous/Strong Cry Muscle Tone-1 minute: Active Movement Reflex Response-1 minute: Prompt Response Color-1 minute: Pallor or Cyanosis Total Score-1 minute: 8 Score-5 Minute Interval(Baby A) Heart Rate- 5 minute: 100 BPM or Greater Respiratory Effort-5 minute: Spontaneous/Strong Cry Muscle Tone-5 minute: Active Movement Reflex Response-5 minute: Prompt Response Color-5 minute: Bluish Hands or Feet Total Score- 5 minute: 9 Interventions Repair of Laceration Type: Perineal, Sponge Count Correct: No Sponges Placed in Vagina, Sharp Count Correct: Yes.
[2023-09-16] MEDS: Acetaminophen 325 MG TAB 650 MG PO (20:01)
[2023-09-17] MEDS: Ibuprofen 600 MG TAB PO ×2 (05:05→21:56)
[2023-09-17] MEDS: Acetaminophen 325 MG TAB 650 MG PO ×2 (05:05→21:55)
[2023-09-17 07:36] LABS: ALT 25 U/L (14-59); AST 52 U/L (15-37); Albumin 2.3 g/dL (3.4-5.0); Alkaline Phosphatase 131 U/L (46-116); Anion Gap 9.4 mmol/L (3-11); BUN 9 mg/dL (7-18); Bilirubin, Total 0.4 mg/dL (0.2-1.0); CO2 24.6 mmol/L (21.0-32.0); CREATININE 0.8 mg/dL (0.55-1.02); Calcium 8.9 mg/dL (8.5-10.1); Chloride 106 mmol/L (98-107); Estimated GFR 100.33 (mL/min/1.73m2); Glucose 82 mg/dL (74-106); Potassium 3.9 mmol/L (3.5-5.1); Sodium 140 mmol/L (136-145); Total Protein 5.7 g/dL (6.4-8.2); Uric Acid 5.4 mg/dL (2.6-6.0)
[2023-09-17 07:47] LABS: HCT 31.6 % (36.0-46.0); HGB 10.7 g/dL (11.2-15.7); MCHC 33.9 % (32.0-36.0); MCV 92 fL (80-95); MPV 10.8 fL (8.0-11.0); Platelet Count 206 10^3/uL (130-400); RBC 3.45 10^6/uL (3.93-5.22); RDW 13.1 % (11.7-14.6); RDW-SD 42.5 fL; WBC 15.65 10^3/uL (4.4-10.8)
[2023-09-17 08:10] VITALS: BP 111/65; PULSE 71; RESP 16; TEMP 36.7; O2SAT 98
[2023-09-17] MEDS: Docusate Sodium 100 MG CAP PO (08:19)
--- NOTE | 2023-09-17 11:07 | OBPPV_ITS ---
Date of service: 09/17/23 Time of Service: 11:10 Assessment and Plan Assessment and plan (1) Term delivered: Status: Acute Assessment and plan: A: PPD#1, nml recovery, BP 110's over 60's Pleased with experience off to a good start P: Routine PP care and support CMP/CBC this morning nml except for slight ALT elevation Repeat labs tomorrow morning Undecided regarding BCM Subjective Subjective Patient comments: Pain well controlled, Tolerating diet and Bowel Movement Patient's Mood: happy [place] baby status: Doing well, Nursing well, Rooming in and Strong Bonding Observed feeding status: Exclusively breast feeding Exam Physical Exam Vital signs: Temp Pulse Resp BP Pulse Ox 98.1 F 71 16 111/65 98 09/17/23 08:10 09/17/23 08:10 09/17/23 08:10 09/17/23 08:10 09/17/23 08:10 Vital Signs Reviewed: Yes Constitutional Constitutional: no acute distress, average body habitus and cooperative HEENT Exam HEENT Exam: Normal Neck Exam Neck Exam: Normal Breast Exam Bilateral: Breast Exam: Normal and Soft Nipple Exam: Normal and Uninjured Respiratory Exam Respiratory Exam: Normal Cardiovascular Exam Cardiovascular Exam: Normal Abdominal Exam Abdomen: Other (soft, nontender) Fundal Exam Fundus: Below Umbilicus and Firm Rectal Exam Rectal Exam: Hemmorhoids Extremities Exam Extremity Exam: Normal, Full ROM and Warm to Touch Back/Spine/Pelvis Exam Back Exam: Normal Skin Exam Skin Exam: Normal Neurological Exam Neurological Exam: Normal Psychiatric Exam Psychiatric Exam: Normal Results Abnormal Lab Findings: Abnormal Labs 09/16/23 09/17/23 16:53 06:05 WBC 20.23 H 15.65 H RBC 3.78 L 3.45 L Hgb 10.7 L Hct 34.6 L 31.6 L Potassium 3.4 L Anion Gap 11.2 H Glucose 146 H AST 52 H Alkaline Phosphatase 171 H 131 H Total Protein 5.7 L Albumin 2.6 L 2.3 L
[2023-09-17 12:10] VITALS: BP 109/77; PULSE 63; RESP 16; TEMP 36.6; O2SAT 98
[2023-09-17 22:00] VITALS: BP 129/84; PULSE 68; TEMP 37
[2023-09-18] MEDS: Hamamelis Leaf/Glycerin 100 EACH BOX PR (08:16)
[2023-09-18] MEDS: Dibucaine 1% 28 GM TUBE TP (08:16)
[2023-09-18 08:21] LABS: HGB 10.5 g/dL (11.2-15.7); MCHC 32.8 % (32.0-36.0); MCV 94 fL (80-95); MPV 10.1 fL (8.0-11.0); Platelet Count 198 10^3/uL (130-400); RBC 3.39 10^6/uL (3.93-5.22); RDW 13.3 % (11.7-14.6); RDW-SD 45.1 fL; WBC 9.21 10^3/uL (4.4-10.8)
[2023-09-18] MEDS: Docusate Sodium 100 MG CAP PO (08:29)
[2023-09-18 08:33] VITALS: BP 111/74; PULSE 76; RESP 17; TEMP 37; O2SAT 98
[2023-09-18 08:42] LABS: ALT 29 U/L (14-59); AST 47 U/L (15-37); Albumin 2.4 g/dL (3.4-5.0); Alkaline Phosphatase 120 U/L (46-116); Anion Gap 9.2 mmol/L (3-11); BUN 7 mg/dL (7-18); Bilirubin, Total 0.2 mg/dL (0.2-1.0); CO2 26.8 mmol/L (21.0-32.0); CREATININE 0.8 mg/dL (0.55-1.02); Calcium 8.8 mg/dL (8.5-10.1); Chloride 104 mmol/L (98-107); Estimated GFR 100.33 (mL/min/1.73m2); Glucose 138 mg/dL (74-106); Potassium 3.9 mmol/L (3.5-5.1); Sodium 140 mmol/L (136-145); Total Protein 5.7 g/dL (6.4-8.2)
--- NOTE | 2023-09-18 09:06 | W.PM.OBPNV1 ---
Date of service: 09/18/23 Time of Service: 09:06 Assessment and Plan Assessment and plan (1) Term delivered: Status: Acute Assessment and plan: A: PPD#2, nml recovery, BP's all nml AST mildly elevated but decreasing from yesterday P: Discharge to home; check BP at home & report abn result Written instructions reviewed and given to pt Undecided regarding BCM F/up at 2 & 6 wks Subjective Subjective Patient comments: No complaints, Pain well controlled, Tolerating diet and Bowel Movement Patient's Mood: happy, tired [place] baby status: Doing well, Nursing well, Rooming in and Strong Bonding Observed [place] feeding status: Exclusively breast feeding Exam Physical Exam Vital signs: Temp Pulse Resp BP Pulse Ox 98.6 F 76 17 111/74 98 09/18/23 08:33 09/18/23 08:33 09/18/23 08:33 09/18/23 08:33 09/18/23 08:33 Vital Signs Reviewed: Yes Constitutional Constitutional: no acute distress, average body habitus and cooperative HEENT Exam HEENT Exam: Normal Neck Exam Neck Exam: Normal Breast Exam Bilateral: Breast Exam: Normal and Soft Respiratory Exam Respiratory Exam: Normal Cardiovascular Exam Cardiovascular Exam: Normal Abdominal Exam Abdomen: Other (soft, nontender) Fundal Exam Fundus: Below Umbilicus and Firm Rectal Exam Rectal Exam: Hemmorhoids Exam Perineum: Normal Extremities Exam Extremity Exam: Normal, Full ROM and Warm to Touch Back/Spine/Pelvis Exam Back Exam: Normal Skin Exam Skin Exam: Normal Neurological Exam Neurological Exam: Normal Psychiatric Exam Psychiatric Exam: Normal Results Abnormal Lab Findings: Abnormal Labs 09/16/23 09/17/23 09/18/23 16:53 06:05 08:15 WBC 20.23 H 15.65 H RBC 3.78 L 3.45 L 3.39 L Hgb 10.7 L 10.5 L Hct 34.6 L 31.6 L 32.0 L Potassium 3.4 L Anion Gap 11.2 H Glucose 146 H 138 H AST 52 H 47 H Alkaline Phosphatase 171 H 131 H 120 H Total Protein 5.7 L 5.7 L Albumin 2.6 L 2.3 L 2.4 L
--- NOTE | 2023-09-18 10:16 | DSE_ITS ---
Date of service: 09/18/23 Time of Service: 10:16 DS: Diagnosis Discharge Diagnosis (1) Term delivered: Status: Acute Discharge Plan Disposition Patient Disposition: Home Condition: Good Discharge Details Reason For Visit: Labor Admit Date/Time: 09/16/23 14:27 Admit Provider: Earnestine Young Attending Provider: Earnestine Young Primary Care Provider: Tita Polanco Hospital Course Hospital Course: , nml course Home Meds and New Rx's Prescriptions: No Action albuterol sulfate [ProAir HFA] 90 mcg/actuation HFA aerosol inhaler 1 - 2 puff Inhalation Q4H PRN Qty: 18 8RF Rx Instructions: may dispense two inhalers at a time cholecalciferol (vitamin D3) 125 mcg (5,000 unit) capsule 125 mcg PO DAILY Fish Oil 300-500 mg capsule 1 cap PO DAILY Patient Comments: 25mcg/1000IU Classic 28 mg iron- 800 mcg tablet 1 tab PO DAILY budesonide-formoterol [Symbicort] 80-4.5 mcg/actuation HFA aerosol inhaler 2 puff inhalation QID Qty: 10.2 6RF docusate sodium [Colace] 100 mg capsule 100 mg PO BID Qty: 60 2RF Discharge Instructions Additional Instructions: Please keep 2 & 6 wk appt's with your patient access manager, call for any and all concerns Stand Alone Forms: Instructions, BC Post Vaginal Deliver Activity:: Activity as Tolerated Equipment/Supplies:: No Equipment Needed Diet:: Normal Diet Discharge Orders Discharge Orders: Discharge Order (Routine); Ordered 09/18/23 Ordered By: Cesia Phelps OB:DS Summary Summary Vaginal Delivery Method: Spontaneaous Episiotomy Description: None Laceration Description: Perineal Laceration Extension: First Degree Contraception Discussed Contraception Discussed: Yes Contraceptive Plan: Foam/Condoms and Undecided, Infant Gender-Baby A: Female weight: 7 lb 4.757 oz Status at Discharge Functional status at discharge: independent ambulation Overall status at discharge: patient is progressing back to baseline Mental Status: mental status grossly normal Speech and Movement: speech and movement normal Mood: congruent mood Affect: normal affect Quality:SDOH Health Related Social Needs: No Data to Display Exam Physical Exam Vital signs: Temp Pulse Resp BP Pulse Ox 98.6 F 76 17 111/74 98 09/18/23 08:33 09/18/23 08:33 09/18/23 08:33 09/18/23 08:33 09/18/23 08:33 Constitutional Constitutional: no acute distress, average body habitus and cooperative HEENT Exam HEENT Exam: Normal Neck Exam Neck Exam: Normal Breast Exam Bilateral: Breast Exam: Normal and Soft Respiratory Exam Respiratory Exam: Normal Cardiovascular Exam Cardiovascular Exam: Normal Abdominal Exam Abdomen: Other (soft, nontender) Fundal Exam Fundus: Below Umbilicus and Firm Rectal Exam Rectal Exam: Hemmorhoids Exam Perineum: Normal Extremities Exam Extremity Exam: Normal, Full ROM and Warm to Touch Back/Spine/Pelvis Exam Back Exam: Normal Skin Exam Skin Exam: Normal Neurological Exam Neurological Exam: Normal Psychiatric Exam Psychiatric Exam: Normal PFSH All Active Problems (Updated 09/17/23 @ 11:15 by Cesia Phelps) Term delivered (Acute) Multiple environmental allergies (Acute) Asthma (Chronic ~01/14/10) Seasonal and exercise induced; mild intermittent. Enlarged thyroid (Acute) Cervical polyp (Acute) History of pre-eclampsia (Acute) Managed with Labetalol and Nifedipine 8-9wks pp Situational anxiety (Acute) Adjustment disorder (Chronic) Medical History (Updated 09/17/23 @ 11:15 by Cesia Phelps) Spontaneous onset of labor Vaginal discharge during HRP (high risk ) Hx of lead exposure History of abnormal cervical Pap smear positive high risk HPV Lead exposure Leaking of urine Low TSH level History of frequent headaches non-migrainus in nature Acne (~10/05/08) Family History Sister No problems noted. Sister No problems noted. Brother No problems noted. Brother No problems noted. Maternal Grandfather , 84 Hyperlipidemia Paternal Grandfather , 69 Alcohol abuse Maternal Grandmother , 83 High cholesterol Macular degeneration Dementia Paternal Grandmother , 84 High cholesterol Mother No problems noted. Father No problems noted. Social History Smoking/Tobacco Use Status: Never Smoking risk assessment performed?: Yes Alcohol Intake: current Alcohol Intake frequency: a few times a month Alcohol type: wine Drug use: Never Substance use type: does not use Caregiver/Support person: No Household members: spouse and children Housing: house Number of Children: 1 Communication Needs: None and Corrective Lenses Education Level: college Details: BA [employer] Do you need help understanding health information?: Never current occupation: Substitute Teaching; teaches homeschool [employer] Pets and animals: Yes Pets and animals: dog(s) and other Details: Chickens Sexually active: Yes Do you think of yourself as: straight/heterosexual Current gender identity: female What is your relationship status?: How often do you talk on the phone with friends or family?: three or more times per week How often do you get together with friends or relatives?: three or more times p er week How often do you attend jehovah's witness or hinduism services?: decline to answer Do you belong to any clubs or organized social groups?: yes Panel score (0-1 are the most socially isolated patients): 3 What type of physical activity do you participate in: walking, bicycling, other Details: Hiking and yoga Duration: 45-60 minutes/day Frequency: 5-6 times per week Ashli/Restorationism: No preference Special ashli needs: No Seatbelt use: always Helmet use: Yes Helmet use: always Drive intox or ride w/intox corrugated fastener driver: No Do you feel safe at home: Yes Do you feel safe in your relationship?: Yes History History 2 Para 1 Hx # Term Pregnancies 1 Multiple births 0 Hx # Pregnancies 0 Ectopic pregnancies 0 AB induced 0 Hx Number of Living Children 1 AB spontaneous 0 Past Pregnancies Del. Date GA/Weeks # Preg Succ Route Wgt Sex Labor Lgth Anesth esia Location [facility] 08/12/21 38 No Yes vaginal 6 lb 4.7 oz Female Racheal Martinez CNM other Delivery Date: 08/12/21 Last Updated by: Earnestine Young CNM HELLP Syndrome. IOL with cervidil. Trisha DS: Data Vitals/I&O Vitals and I&O: Vital Signs Temperature 98.6 F 09/18/23 08:33 Temperature Source Oral 09/18/23 08:33 Pulse 76 09/18/23 08:33 Pulse Rhythm Regular 09/18/23 08:32 Respiratory Rate 17 09/18/23 08:33 Respiratory Depth Normal 09/18/23 08:32 Blood Pressure 111/74 09/18/23 08:33 Blood Pressure Mean 86 09/18/23 08:33 Pulse Oximetry 98 09/18/23 08:33 Oxygen Delivery Method Room Air 09/16/23 15:13 Oxygen Flow Rate 0 09/16/23 15:13 Pain Level 2 09/18/23 08:33 Intake & Output 09/17/23 09/17/23 09/18/23 11:59 23:59 11:59 Output Total 400 / 400 Balance -400 / -400 Output: Urine 400 / 400 Other: Urine Color Pale Data Completed and Pending Labs on day of discharge: Labs from last 24 hours 09/18/23 09/18/23 08:25 08:15 WBC 9.21 RBC 3.39 L Hgb 10.5 L Hct 32.0 L MCV 94 MCH 31.0 MCHC 32.8 RDW 13.3 Plt Count 198 MPV 10.1 Sodium 140 Potassium 3.9 Chloride 104 Carbon Dioxide 26.8 Anion Gap 9.2 BUN 7 Creatinine 0.8 Est GFR (CKD-EPI 2020) 100.33 Glucose 138 H Calcium 8.8 Total Bilirubin 0.2 AST 47 H ALT 29 Alkaline Phosphatase 120 H Total Protein 5.7 L Albumin 2.4 L Ur Random Creatinine Pending U Random Total Protein Pending U [place] Prot/Creat Ratio Pending
== END 2023-09-18 10:40 | disposition home or self-care (01) | DRG 807 ==
LOC: BCD 16:23 → OBS 16:23
PROVIDERS: Advanced Practice Midwife; Admitting Provider Advanced Practice Midwife; PCP Family Medicine; Visit Provider Advanced Practice Midwife
DX: O99.52 Diseases of the respiratory system complicating childbirth (principal); Z37.0 Single live birth; O70.0 First degree perineal laceration during delivery; O99.284 Endocrine, nutritional and metabolic diseases complicating childbirth; E07.89 Other specified disorders of thyroid; O99.344 Other mental disorders complicating childbirth; F41.8 Other specified anxiety disorders; Z3A.39 39 weeks gestation of pregnancy; J45.20 Mild intermittent asthma, uncomplicated
CPT/HCPCS: 36415; 80053; 85027; 86850; 86900; 86901; 82565; 84156; 84550; J2003; J2590

== ENCOUNTER 2025-06-08 04:10 | Outpatient (CLI) | payer OTHER, SELFPAY ==
[2025-06-08 12:05] LABS: Abs Immature Grans 0.04 10^3/uL (0.0-0.06); HCT 37.9 % (36.0-46.0); HGB 13.0 g/dL (11.2-15.7); Immature Grans % 0.4 %; MCH 31.6 pg (27.0-33.0); MCHC 34.3 % (32.0-36.0); MCV 92 fL (80-95); MPV 10.5 fL (8.0-11.0); Platelet Count 249 10^3/uL (130-400); RBC 4.12 10^6/uL (3.93-5.22); RDW 11.7 % (11.7-14.6); RDW-SD 39.5 fL; WBC 10.08 10^3/uL (4.4-10.8)
[2025-06-08 12:30] LABS: ALT 28 U/L (14-59); AST 23 U/L (15-37); Albumin 3.8 g/dL (3.4-5.0); Alkaline Phosphatase 66 U/L (46-116); Anion Gap 10.4 mmol/L (3-11); BUN 13 mg/dL (7-18); Bilirubin, Total 0.4 mg/dL (0.2-1.0); CO2 25.6 mmol/L (21.0-32.0); Calcium 9.0 mg/dL (8.5-10.1); Chloride 99 mmol/L (98-107); Estimated GFR 126.14 (mL/min/1.73m2); Glucose 79 mg/dL (74-106); Potassium 3.7 mmol/L (3.5-5.1); Sodium 135 mmol/L (136-145); Total Protein 7.8 g/dL (6.4-8.2)
[2025-06-08 19:06] LABS: Hepatitis C Ab w Rflx HCV PCR Negative (Negative)
[2025-06-08 19:09] LABS: HIV-1/2 Ag & Ab Screen Negative (Negative)
[2025-06-11 12:22] LABS: Rubella IgG Ab (UVM) Positive (See Note)
[2025-06-12 21:53] LABS: Syphilis IgG w/Reflex Nonreactive (Nonreactive)
== END 2025-06-08 04:11 | disposition home or self-care (01) ==
LOC: LBO 04:10
PROVIDERS: Visit Provider Advanced Practice Midwife
DX: Z34.91 Encounter for supervision of normal pregnancy, unspecified, first trimester (principal)
CPT/HCPCS: 36415; 80053; 86787; 86803; 86850; 86900; 86901; 87340; 87389; 85025; 86762; 86780

== ENCOUNTER 2025-06-08 11:14 | Outpatient (REF) | payer OTHER, SELFPAY ==
[2025-06-08 12:47] LABS: Lab Add On Test DONE
[2025-06-08 13:28] LABS: PROTEIN < 6.0 mg/dL
[2025-06-11 11:27] LABS: Chlamydia Result Negative (Negative); GC Result Negative (Negative)
== END 2025-06-08 11:15 | disposition home or self-care (01) ==
LOC: LBN 11:14
PROVIDERS: Visit Provider Advanced Practice Midwife
DX: Z34.91 Encounter for supervision of normal pregnancy, unspecified, first trimester (principal); Z87.59 Personal history of other complications of pregnancy, childbirth and the puerperium
CPT/HCPCS: 87491; 87591; 82565; 84156; 87086